=== PATIENT | female | born 1970 | race Caucasian/White ===

== ENCOUNTER 2017-05-24 14:33 | Emergency (ER) | payer SELFPAY ==
[~2017-05-24] VITALS: Ht 157.5 cm; Wt 60.0 kg
[~2017-05-24 14:33] MED LIST: AUGM875T PO; PERC5TAB12 PO
[2017-05-24 14:36] VITALS: BP 129/85; PULSE 100; RESP 17; TEMP 98.8; O2SAT 96
[2017-05-24] MEDS ORDERED: SODIUM CHLOR 0.9% 1000 ML INJ 1,000 ML IV SCH (14:41)
[2017-05-24] MEDS ORDERED: TETANUS/DIPHTHERIA TOXOID ADULT 0.5 ML VIAL IM ONE (14:45)
[2017-05-24] MEDS ORDERED: SODIUM CHLORIDE 0.9% FLUSH 5 ML FLUSH IV FLUSH PRN (14:45)
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
[2017-05-24 15:05] LABS: AUTOMATED NEUTROPHIL # 6.2 TH/MM3 (1.8-7.7); BASOPHIL % 0.5 % (0.0-2.0); EOSINOPHIL # 0.2 TH/MM3 (0-0.4); EOSINOPHIL % 2.1 % (0.0-4.0); HEMATOCRIT 43.5 % (35.0-46.0); HEMO FLAGS DIFF FINAL; LYMPH % 20.3 % (9.0-44.0); LYMPHOCYTE # 1.8 TH/MM3 (1.0-4.8); MEAN CELL VOLUME 96.8 FL (80.0-100.0); MEAN CORPUSCULAR HEMOGLOBIN 33.7 PG (27.0-34.0); MEAN CORPUSCULAR HGB CONC 34.8 % (32.0-36.0); MONO % 6.8 % (0.0-8.0); NEUT % 70.3 % (16.0-70.0); PLATELET COUNT 227 TH/MM3 (150-450); RED BLOOD COUNT 4.49 MIL/MM3 (4.00-5.30); RED CELL DISTRIBUTION WIDTH 14.8 % (11.6-17.2); WHITE BLOOD COUNT 8.9 TH/MM3 (4.0-11.0)
[2017-05-24 15:46] LABS: ALT (GPT) 21 U/L (10-53); ANION GAP 13 MEQ/L (5-15); AST (GOT) 23 U/L (15-37); BICARBONATE 23.2 MEQ/L (21.0-32.0); BLOOD UREA NITROGEN 3 MG/DL (7-18); CHLORIDE 108 MEQ/L (98-107); GLOMERULAR FILTRATION RATE 85 ML/MIN (>89); POTASSIUM 3.2 MEQ/L (3.5-5.1); SODIUM (NA) 144 MEQ/L (136-145)
[2017-05-24 15:53] LABS: ALKALINE PHOSPHATASE 57 U/L (45-117); TOTAL BILIRUBIN ADULT 0.5 MG/DL (0.2-1.0)
[2017-05-24 15:55] LABS: CREATINE KINASE 87 U/L (26-192)
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
[2017-05-24] MEDS ORDERED: POTASSIUM CHLORIDE 25 MEQ EFFERVESCENT TAB PO ONE (16:15)
[2017-05-24] MEDS ORDERED: MUPI2%T TOPICAL (16:33)
[2017-05-24] MEDS ORDERED: BACT800T5 PO (16:33)
[2017-05-24 16:45] LABS: AMPHETAMINE, URINE NEG (NEG); BARBITURATES, URINE NEG (NEG); COCAINE, URINE POS (NEG)
[2017-05-24 16:47] LABS: BLOOD, URINE NEG (NEG); GLUCOSE,URINE NEG (NEG); KETONE, URINE NEG (NEG); NITRITE,URINE NEG (NEG); SQUAMOUS EPITHELIAL CELL URINE <1 /hpf (0-5); URINE COLOR LIGHT-YELLOW (YELLW/STRAW)
[2017-05-24 16:50] LABS: COMMENT (UR) CATH-CULT NOT IND; CULTURE IF INDICATED CATH CULTURE NOT IND
[2017-05-24 17:03] VITALS: BP 143/76; PULSE 96; RESP 16; O2SAT 99
== END 2017-05-24 17:39 | disposition home or self-care (01) ==
LOC: NEPD 14:33
DX: F10.120 Alcohol abuse with intoxication, uncomplicated (principal); L01.00 Impetigo, unspecified; E87.6 Hypokalemia; Y90.6 Blood alcohol level of 120-199 mg/100 ml
CPT/HCPCS: 73120; 80053; 80307; 81001; 82550; 85025; 90471; 90714; 99284; J7030

== ENCOUNTER 2017-05-30 07:56 | Inpatient (IN) | payer OTHER ==
[~2017-05-30] VITALS: Ht 160 cm; Wt 59.4 kg
[~2017-05-30 07:56] MED LIST changes: +BACT800T5 PO; +MUPI2%T TOPICAL
[2017-05-30 08:07] VITALS: BP 114/70; PULSE 145; RESP 20; TEMP 99.5; O2SAT 99
[2017-05-30] MEDS ORDERED: PIPERACIL-TAZO 4.5 GM PREMIX 100 ML IV STA (08:17)
[2017-05-30] MEDS ORDERED: SODIUM CHLOR 0.9% 1000 ML INJ 100 ML IV ONE (08:17)
[2017-05-30] MEDS ORDERED: VANCOMYCIN INJ 1,250 MG in SODIUM CHLORID 0.9% 500 ML INJ 500 ML IV STA (08:17)
[2017-05-30] MEDS ORDERED: SODIUM CHLOR 0.9% 1000 ML INJ 1,000 ML IV ONE ×2 (08:17)
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
[2017-05-30 08:28] VITALS: O2SAT 100
[2017-05-30] MEDS ORDERED: LIDOCAINE 1%/EPINEPHrine 1:100,000 SOLN 20 ML VIAL INFIL ONE (08:30)
[2017-05-30] MEDS ORDERED: ACETAMINOPHEN 325 MG TAB PO ONE (08:30)
[2017-05-30 08:46] LABS: AUTOMATED NEUTROPHIL # 22.7 TH/MM3 (1.8-7.7); BASOPHIL % 0.1 % (0.0-2.0); EOSINOPHIL # 0.1 TH/MM3 (0-0.4); EOSINOPHIL % 0.3 % (0.0-4.0); HEMATOCRIT 43.4 % (35.0-46.0); LYMPH % 2.3 % (9.0-44.0); LYMPHOCYTE # 0.6 TH/MM3 (1.0-4.8); MEAN CELL VOLUME 97.4 FL (80.0-100.0); MEAN CORPUSCULAR HEMOGLOBIN 33.9 PG (27.0-34.0); MEAN CORPUSCULAR HGB CONC 34.8 % (32.0-36.0); MONO % 6.2 % (0.0-8.0); NEUT % 91.1 % (16.0-70.0); PLATELET COUNT 243 TH/MM3 (150-450); RED BLOOD COUNT 4.45 MIL/MM3 (4.00-5.30); RED CELL DISTRIBUTION WIDTH 15.2 % (11.6-17.2); WHITE BLOOD COUNT 24.9 TH/MM3 (4.0-11.0)
[2017-05-30 08:47] LABS: HEMO FLAGS AUTO DIFF
[2017-05-30 09:02] LABS: ANION GAP 10 MEQ/L (5-15); BICARBONATE 24.1 MEQ/L (21.0-32.0); BLOOD UREA NITROGEN 7 MG/DL (7-18); CHLORIDE 94 MEQ/L (98-107); GLOMERULAR FILTRATION RATE 90 ML/MIN (>89); POTASSIUM 3.7 MEQ/L (3.5-5.1); SODIUM (NA) 128 MEQ/L (136-145)
[2017-05-30 09:09] LABS: ALKALINE PHOSPHATASE 83 U/L (45-117); ALT (GPT) 688 U/L (10-53); AST (GOT) 1195 U/L (15-37)
[2017-05-30 09:22] LABS: BANDS 10 % (0-6); METAMYELOCYTES 1 % (0-1); NEUTROPHIL # MANUAL DIFF 24.4 TH/MM3 (1.8-7.7); POLYS (SEG NEUTROPHILS) 87 % (16-70); WBC DIFF SAMPLE 100
[2017-05-30 09:24] LABS: PLATELET ESTIMATE SMEAR NORMAL (NORMAL); PLATELET MORPHOLOGY NORMAL (NORMAL); SCAN/DIFF FINAL DIFF MANUAL
--- NOTE | 2017-05-30 09:26 | RADRPT ---
EXAM DATE/TIME: 05/30/2017 08:53 [facility] COMPARISON: No previous studies available for comparison. INDICATIONS : Left proximal femur pain and inflammation on anterior portion of proximal femur. MEDICAL HISTORY : None. SURGICAL HISTORY : None. ENCOUNTER: Initial ACUITY: 4 - 6 days PAIN SCORE: 8/10 LOCATION: Left femur FINDINGS: Two view examination of the left femur demonstrates no evidence of fracture or dislocation. Bony min eralization is normal. The soft tissue structures are intact. CONCLUSION: Unremarkable examination of the left femur. Anders Pena MD on May 30, 2017 at 9:24 Board Certified Radiologist. This report was verified electronically.
[2017-05-30 09:53] LABS: ACETAMINOPHEN LESS THAN 2.0 MCG/ML (10.0-30.0); ALCOHOL LESS THAN 3 MG/DL (0-5)
[2017-05-30] MEDS ORDERED: Vancomycin Consult Pharmacy 1 EA OTHER SCH (10:00)
[2017-05-30] MEDS ORDERED: ACETAMINOPHEN/HYDROcodone 325 MG/5 MG TAB PO PRN (10:00)
[2017-05-30] MEDS ORDERED: ACETAMINOPHEN 325 MG TAB PO PRN (10:00)
[2017-05-30 10:13] VITALS: BP 124/71; PULSE 112; RESP 28; TEMP 98.3; O2SAT 98
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
[2017-05-30 10:37] LABS: INTERNATIONAL NORMALIZED RATIO 1.1 RATIO; PROTHROMBIN TIME - PATIENT 12.7 SEC (9.8-11.6)
[2017-05-30 10:38] LABS: LACTIC ACID GHOST NOT REPORTABLE
[2017-05-30] MEDS: ACETAMINOPHEN/HYDROcodone 325 MG/5 MG TAB PO PRN ×3 (11:21→22:45)
--- NOTE | 2017-05-30 11:28 | RADRPT ---
EXAM DATE/TIME: 05/30/2017 10:43 [facility] COMPARISON: No previous studies available for comparison. INDICATIONS : Increased lab values. MEDICAL HISTORY : Increased lab values. SURGICAL HISTORY : Right and left arm surgery. ENCOUNTER: Initial ACUITY: 1 day PAIN SCORE: 0/10 LOCATION: Bilateral upper quadrant MEASUREMENTS: LIVER: 17.4 cm length COMMON DUCT: 4 mm RIGHT KIDNEY: 11.9 x 5.0 x 4.4 cm SPLEEN: 9.3 cm length FINDINGS: LIVER: Normal echotexture without focal lesion or ductal dilatation. The portal system is patent. COMMON DUCT: No intraluminal mass or stone visualized. GALLBLADDER: Multiple stones in the gallbladder. There is some thickening of the gallbladder wall. No fluid around the gallbladder. PANCREAS: The visualized portions are within normal limits. RIGHT KIDNEY: No hydronephrosis, stone or mass. SPLEEN: No focal lesion. CONCLUSION: 1. Multiple stones in the gallbladder. No definite biliary tract obstruction at this time. 2. The liver is mildly prominent in size. Tom Archer MD on May 30, 2017 at 11:25 Board Certified Radiologist. This report was verified electronically.
[2017-05-30] MEDS ORDERED: PROPOFOL 200 MG/20 ML AMP IV ONE (12:00)
[2017-05-30] MEDS ORDERED: ONDANSETRON HCL 4 MG/2 ML VIAL IV PUSH ONE (12:00)
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
[2017-05-30 12:37] VITALS: BP 100/68; PULSE 102; RESP 22; TEMP 98.1; O2SAT 100
[2017-05-30] MEDS: SODIUM CHLOR 0.9% 1000 ML INJ 1,000 ML IV SCH ×2 (12:59→21:33)
[2017-05-30] MEDS ORDERED: DIATRIZOATE MEGLUM/DIATRIZOATE SOD 9 ML CUP ONE (13:01)
[2017-05-30] MEDS ORDERED: DIATRIZOATE MEGLUM/DIATRIZOATE SOD 9 ML CUP PO ONE (14:15)
[2017-05-30] MEDS ORDERED: IOHEXOL 350 MG/ML 10 ML VIAL (for RAD DIAG) IV ONE (14:59)
--- NOTE | 2017-05-30 15:14 | RADRPT ---
EXAM DATE/TIME: 05/30/2017 14:49 [facility] COMPARISON: No previous studies available for comparison. INDICATIONS : Left, anterior thigh cellulitis, sepsis. IV CONTRAST: 80 cc Omnipaque 350 (iohexol) IV ORAL CONTRAST: Prescribed oral contrast ingested. RADIATION DOSE: 9.96 CTDIvol (mGy) MEDICAL HISTORY : None SURGICAL HISTORY : None. ENCOUNTER: Initial ACUITY: 1 day PAIN SCALE: 7/10 LOCATION: Left lower quadrant TECHNIQUE: Volumetric scanning of the abdomen and pelvis was performed. Using automated exposure control and ad justment of the mA and/or kV according to patient size, radiation dose was kept as low as reasonably achievable to obtain optimal diagnostic quality images. DICOM format image data is available electro nically for review and comparison. FINDINGS: LOWER LUNGS: Mild right lower lung atelectasis. Left lung base is clear. LIVER: There is some fatty infiltration throughout the liver. No dilated biliary ducts. There are gallstones in the gallbladder. No definite inflammatory changes. SPLEEN: Normal size without lesion. PANCREAS: Within normal limits. KIDNEYS: Normal in size and shape. There is no mass, stone or hydronephrosis. ADRENAL GLANDS: Within normal limits. VASCULAR: There is no aortic aneurysm. BOWEL/MESENTERY: The stomach, small bowel, and colon demonstrate no acute abnormality. There is no free intraperitone al air or fluid. The appendix is unremarkable. No inflammatory changes. ABDOMINAL WALL: Within normal limits. RETROPERITONEUM: There is no lymphadenopathy. BLADDER: No wall thickening or mass. REPRODUCTIVE: Within normal limits. INGUINAL: There is no lymphadenopathy or hernia. MUSCULOSKELETAL: Within normal limits for patient age. CONCLUSION: 1. There is scattered fatty infiltration throughout the liver. 2. Gallstones in the gallbladder. No biliary tract obstruction. 3. Otherwise, unremarkable examination. Tom Archer MD on May 30, 2017 at 15:10 Board Certified Radiologist. This report was verified electronically.
[2017-05-30] MEDS ORDERED: ceFAZolin INJ 1,000 MG VIAL ONE (15:50)
[2017-05-30] MEDS: PIPERACIL-TAZO 3.375 GM PREMIX 50 ML IV SCH ×2 (15:51→22:19)
[2017-05-30] MEDS ORDERED: SODIUM CHLORIDE 0.9% INJ 10 ML ONE (15:52)
[2017-05-30] MEDS ORDERED: BACITRACIN TOP OINT 15 GM TUBE ONE (16:51)
--- NOTE | 2017-05-30 17:06 | HHI.PR ---
cc: Tato Olivo MD Immediate Post Op Note Procedure Date: May 30, 2017 Pre Op Diagnosis: Left groin/thigh abscess with tissue necrosis Post Op Diagnosis: Same Surgeon: Tato Olivo Weeder Thinner(s): Harris Hilton CFA Procedure: Incision and Drainage with irrigation and debridement Left thigh wound with excision 25 cm2 subcutaneous tissue Complications: None Estimated blood loss: 50 ml Anesthesia: LMA Drains: None IVF (600 ) Patient to: PACU Patient Condition: Good Date/Time of Procedure: SEE SURGICAL CARE RECORD Tato Olivo MD May 30, 2017 17:06
[2017-05-30] MEDS ORDERED: fentaNYL CITRATE 250 MCG/5 ML AMP ONE (17:10)
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
[2017-05-30] MEDS ORDERED: METOPROLOL TARTRATE 25 MG TAB PO PRN (18:45)
[2017-05-30] MEDS ORDERED: INSULIN HUMAN REGULAR 1,000 UNITS/10 ML VIAL SQ PRN (18:45)
[2017-05-30] MEDS ORDERED: SODIUM CHLORID 0.9% 500 ML IV PRN (18:45)
[2017-05-30] MEDS ORDERED: LACTATED RINGER'S 1000 ML IV PRN (18:45)
[2017-05-30] MEDS ORDERED: POVIDONE IODINE 5% (ANTISEPSIS KIT) 4 APPLICATIONS EACH NARE PRN (18:45)
[2017-05-30] MEDS ORDERED: CHLORHEXIDINE GLUCONATE 2 % 1 PACK (2 CLOTHS) TOPICAL PRN (18:45)
[2017-05-30 19:44] VITALS: PULSE 107
[2017-05-30 20:00] VITALS: BP 124/72; PULSE 105; RESP 20; TEMP 97.3; O2SAT 99
[2017-05-30] MEDS: CLINDAMYCIN INJ 900 MG in SODIUM CHLORIDE 0.9% INJ 100 ML IV SCH (21:33)
[2017-05-30] MEDS: VANCOMYCIN INJ 1,250 MG in SODIUM CHLOR 0.9% 250 ML INJ 250 ML IV SCH (22:45)
[2017-05-31] VITALS: BP 96/58; PULSE 92; RESP 20; TEMP 97.8; O2SAT 97
[2017-05-31] MEDS: PIPERACIL-TAZO 3.375 GM PREMIX 50 ML IV SCH ×4 (02:26→22:42)
[2017-05-31] MEDS: ACETAMINOPHEN/HYDROcodone 325 MG/5 MG TAB PO PRN ×6 (02:27→23:20)
[2017-05-31] MEDS: CLINDAMYCIN INJ 900 MG in SODIUM CHLORIDE 0.9% INJ 100 ML IV SCH ×3 (03:24→21:04)
[2017-05-31 04:00] VITALS: BP 100/60; PULSE 76; RESP 20; TEMP 97.5; O2SAT 96
[2017-05-31] MEDS: SODIUM CHLOR 0.9% 1000 ML INJ 1,000 ML IV SCH ×2 (05:10→17:37)
[2017-05-31 08:00] VITALS: BP 116/68; PULSE 90; RESP 20; TEMP 97.1; O2SAT 97
[2017-05-31] MEDS: VANCOMYCIN INJ 1,250 MG in SODIUM CHLOR 0.9% 250 ML INJ 250 ML IV SCH ×2 (09:45→23:11)
[2017-05-31 10:29] LABS: BICARBONATE 21.9 MEQ/L (21.0-32.0); CALCIUM-PROTEIN CORRECTED 8.4 MG/DL (8.5-10.1); TOTAL BILIRUBIN ADULT 1.8 MG/DL (0.2-1.0)
[2017-05-31 10:32] LABS: POTASSIUM 3.3 MEQ/L (3.5-5.1)
--- NOTE | 2017-05-31 11:54 | HHI.PR ---
Subjective Remarks f/u; abscess left thigh in no acute disress. afebrile. pain is fairly controlled. no new complaints. Objective Vitals Vital Signs Date Time Temp Pulse Resp B/P Pulse Ox O2 Delivery O2 Flow Rate FiO2 05/31/17 08:29 99 Room Air 05/31/17 08:07 18 05/31/17 08:00 97.1 90 20 116/68 97 05/31/17 04:00 97.5 76 20 100/60 96 05/31/17 00:00 97.8 92 20 96/58 97 05/31/17 00:00 Room Air 05/30/17 20:00 Room Air 05/30/17 20:00 97.3 105 20 124/72 99 05/30/17 19:44 107 05/30/17 18:15 101 16 132/71 99 Room Air 05/30/17 18:00 102 16 128/65 98 Room Air 05/30/17 17:45 98 16 113/71 99 Room Air 05/30/17 17:30 100 16 118/69 98 Room Air 05/30/17 17:15 91 16 131/78 98 Room Air 05/30/17 17:06 99.0 86 16 136/80 99 Room Air 05/30/17 12:37 98.1 102 22 100/68 100 Room Air I/O 05/30/17 05/30/17 05/30/17 05/31/17 05/31/17 05/31/17 07:00 15:00 23:00 07:00 15:00 23:00 Intake Total 1118 ml 1104 ml Output Total 325 ml Balance 1118 ml 779 ml Intake Oral 600 ml 240 ml IV Total 518 ml 864 ml Output Urine Total 325 ml # Voids 2 # Bowel Movements 1 Result Diagram: 05/30/17 0830 05/31/17 0812 Imaging Last Impressions Liver Ultrasound 05/30/17 0000 Signed Impressions: Service Date/Time: May 10:43 - CONCLUSION: 1. Multiple stones in the gallbladder. No definite biliary tract obstruction at this time. 2. The liver is mildly prominent in size. Tom Archer MD Femur X-Ray 05/30/17 0000 Signed Impressions: Service Date/Time: May 08:53 - CONCLUSION: Unremarkable examination of the left femur. Anders Pena MD Abdomen/Pelvis CT 05/30/17 0000 Signed Impressions: Service Date/Time: May 14:49 - CONCLUSION: 1. There is scattered fatty infiltration throughout the liver. 2. Gallstones in the gallbladder. No biliary tract obstruction. 3. Otherwise, unremarkable examination. Tom Archer MD Objective Remarks GENERAL: This is a well-nourished, well-developed patient, in no apparent distress. CARDIOVASCULAR: Regular rate and regular rhythm without murmurs, gallops, or rubs. RESPIRATORY: Clear to auscultation. Breath sounds equal bilaterally. No wheezes , rales, or rhonchi. GASTROINTESTINAL: Abdomen soft, non-tender, nondistended. Normal, active bowel sounds MUSCULOSKELETAL: left thigh covered with clean dressing with wound vac in place. NEURO: Alert & Oriented x4 to person, place, time, situation. Moves all ext x4 Procedures I/D of the left thigh abscess with wound vac placement. Medications and IVs Current Medications Acetaminophen 650 mg 650 mg ONCE ONCE PO Last administered on 05/30/17 09:14 ; Start 05/30/17 at 08:30; Stop 05/30/17 at 08:31; Status DC Piperacillin Sod/ Tazobactam Sod 100 ml @ 200 mls/hr ONCE STAT IV Last administered on 05/30/17 09:14; Start 05/30/17 at 08:17; Stop 05/30/17 at 08:46 ; Status DC Vancomycin HCl 1250 mg/Sodium Chloride 512.5 ml @ 257.5 mls/ hr ONCE STAT IV Last administered on 05/30/17 09:52; Start 05/30/17 at 08:17; Stop 05/30/17 at 10:19; Status DC Sodium Chloride 1,000 ml @ 1,000 mls/hr Q1H ONCE IV Last administered on 09:13; Start 05/30/17 at 08:17; Stop 05/30/17 at 09:16; Status DC Sodium Chloride 1,000 ml @ 1,000 mls/hr Q1H ONCE IV Last administered on 09:13; Start 05/30/17 at 08:17; Stop 05/30/17 at 09:16; Status DC Sodium Chloride (NS 1000 ml Inj) 100 ml @ 1,000 mls/hr Q6M ONCE IV Last administered on 05/30/17 09:53; Start 05/30/17 at 08:17; Stop 05/30/17 at 08:22 ; Status DC Lidocaine/ Epinephrine 10 ml 10 ml ONCE ONCE INFIL Last administered on 10:01; Start 05/30/17 at 08:30; Stop 05/30/17 at 08:31; Status DC Pharmacy Profile Note 0 ml @ 0 mls/hr UNSCH OTHER ; Start 05/30/17 at 10:00 Piperacillin Sod/ Tazobactam Sod (Zosyn 3.375 Gm Premix) 50 ml @ 100 mls/hr Q6H IV Last administered on 05/31/17 08:09; Start 05/30/17 at 15:00 Acetaminophen (Tylenol) 650 mg Q4H PRN PO FEVER; Start 05/30/17 at 10:00 Acetaminophen/ Hydrocodone Bitart ([place] 5-325 Mg) 1 tab Q4H PRN PO PAIN 1-5; Start 05/30/17 at 10:00 Acetaminophen/ Hydrocodone Bitart ([place] 5-325 Mg) 2 tab Q4H PRN PO PAIN 6-10 Last administered on 05/31/17 10:40; Start 05/30/17 at 10:00 Hydromorphone HCl 0.5 mg 0.5 mg Q4H PRN IV PUSH BREAKTHROUGH PAIN; Start at 10:00 Sodium Chloride 1,000 ml @ 100 mls/hr Q10H IV Last administered on 05/31/17 05:10; Start 05/30/17 at 10:00 Vancomycin HCl/ Sodium Chloride (Vancomycin Inj/ NS 250 ml Inj) 262.5 ml @ 250 mls/hr Q12H IV Last administered on 05/31/17 09:45; Start 05/30/17 at 22:00 Miscellaneous Information SPECIFIC LAB TO BE DRAWN:VANCOMYCIN TROUGH DATE TO... ONCE ONCE .XX ; Start 06/01/17 at 09:45; Stop 06/01/17 at 09:46 Diatrizoate Meglum/ Diatrizoate Sod ( Gastromaxime Liq) 18 ml STK-MED ONCE .ROUTE Last administered on 05/30/17 13:04; Start 05/30/17 at 13:01; Stop 08/06 at 13:02; Status DC Diatrizoate Meglum/ Diatrizoate Sod ( Gastromaxime Stevens) 18 ml ONCE ONCE PO ; Start 05/30/17 at 14:15; Stop 05/30/17 at 14:16; Status DC Iohexol (Omnipaque 350 Inj) 80 ml STK-MED ONCE IV Last administered on 14:59; Start 05/30/17 at 14:59; Stop 05/30/17 at 15:00; Status DC Cefazolin Sodium 3000 mg 3,000 mg STK-MED ONCE .ROUTE Last administered on 05/30 16:41; Start 05/30/17 at 15:50; Stop 05/30/17 at 15:51; Status DC Sodium Chloride (NS Inj) 10 ml @ As Directed STK-MED ONCE .ROUTE ; Start at 15:52; Stop 05/30/17 at 15:53; Status DC Bacitracin (Baciguent Oint) 15 applic STK-MED ONCE .ROUTE Last administered on 05/30/17 16:53; Start 05/30/17 at 16:51; Stop 05/30/17 at 16:52; Status DC Fentanyl Citrate 250 mcg 250 mcg STK-MED ONCE .ROUTE ; Start 05/30/17 at 17:10; Stop 05/30/17 at 17:11; Status DC Lactated Ringer's 1,000 ml @ 30 mls/hr Q24H PRN IV SEE LABEL COMMENTS; Start at 18:45; Stop 06/02/17 at 18:44 Sodium Chloride (NS 500 ml Inj) 500 ml @ 30 mls/hr [id number] PRN IV SEE LABEL COMMENTS; Start 05/30/17 at 18:45; Stop 06/02/17 at 18:44 Metoprolol Tartrate (Lopressor) 25 mg CHEMICAL ENGINEERING INTERN PRN PO SEE LABEL COMMENTS; Start 05/30/17 at 18:45; Stop 06/02/17 at 18:44 Povidone Iodine (Betadine 5% Antisepsis Kit) 1 applic CHEMICAL ENGINEERING INTERN PRN EACH NARE SEE LABEL COMMENTS; Start 05/30/17 at 18:45; Stop 06/02/17 at 18:44 Chlorhexidine Gluconate (Chlorhexidine 2% Cloth) 3 pack CHEMICAL ENGINEERING INTERN PRN TOPICAL SEE LABEL COMMENTS; Start 05/30/17 at 18:45; Stop 06/02/17 at 18:44 Insulin Human Regular See Protocol Table ... CHEMICAL ENGINEERING INTERN PRN SQ SEE PROTOCOL TABLE ; Start 05/30/17 at 18:45; Stop 06/02/17 at 18:44 Clindamycin Phosphate/Sodium Chloride (Cleocin Inj/NS Inj) 106 ml @ 212 mls/hr Q8H IV Last administered on 05/31/17t 03:24; Start 05/30/17 at 20:00 A/P Assessment and Plan A/P - severe sepsis due to cellulitis/abscess of the left thigh- s/p I/D and wound vac placement continue with IV antibiotics and pain control- follow the cultures- ID and general surgery following. -elevated LFT's- improving- abdominal sonogram with cholelithiasis with no biliary obstruction-hepatitis panel pending- GI consult appreciated. -hyponatremia; improved- will monitor -hypokalemia; will replace. -DVT prophylaxis with Lovenox when ok with surgery. Luna Goss MD May 31, 2017 11:53
[2017-05-31 12:00] VITALS: BP 134/79; PULSE 91; RESP 20; TEMP 97.2; O2SAT 97
[2017-05-31] MEDS ORDERED: POTASSIUM CHLORIDE 20 MEQ CONTROLLED RELEASE TAB PO ONE (12:00)
[2017-05-31 12:44] LABS: AUTOMATED NEUTROPHIL # 9.3 TH/MM3 (1.8-7.7); BASOPHIL % 0.2 % (0.0-2.0); EOSINOPHIL # 0.3 TH/MM3 (0-0.4); EOSINOPHIL % 2.5 % (0.0-4.0); HEMATOCRIT 35.6 % (35.0-46.0); HEMO FLAGS DIFF FINAL; LYMPH % 9.8 % (9.0-44.0); LYMPHOCYTE # 1.1 TH/MM3 (1.0-4.8); MEAN CELL VOLUME 99.3 FL (80.0-100.0); MEAN CORPUSCULAR HEMOGLOBIN 32.7 PG (27.0-34.0); MEAN CORPUSCULAR HGB CONC 32.9 % (32.0-36.0); MONO % 6.9 % (0.0-8.0); NEUT % 80.6 % (16.0-70.0); PLATELET COUNT 204 TH/MM3 (150-450); RED BLOOD COUNT 3.59 MIL/MM3 (4.00-5.30); RED CELL DISTRIBUTION WIDTH 15.3 % (11.6-17.2); WHITE BLOOD COUNT 11.5 TH/MM3 (4.0-11.0)
--- NOTE | 2017-05-31 15:15 | HHI.PR ---
Subjective Subjective Notes Resting in bed No issues Pain better today Objective Vitals/I&O Vital Signs Date Time Temp Pulse Resp B/P Pulse Ox O2 Delivery O2 Flow Rate FiO2 05/31/17 12:50 18 05/31/17 12:00 97.2 91 134/79 97 05/31/17 08:29 Room Air Labs Laboratory Tests Test 05/31/17 05/31/17 05/31/17 08:12 09:13 11:58 Sodium Level 134 Potassium Level 3.3 Chloride Level 103 Carbon Dioxide Level 21.9 Anion Gap 9 Blood Urea Nitrogen 6 Creatinine 0.60 Estimat Glomerular Filtration 107 Rate Random Glucose 84 Calcium Level 7.4 Protein Corrected Calcium 8.4 Total Bilirubin 1.8 Aspartate Amino Transf 354 (AST/SGOT) Alanine Aminotransferase 475 (ALT/SGPT) Alkaline Phosphatase 79 Total Protein 5.3 Albumin 2.0 Lactic Acid Level 1.7 Hepatitis A IgM Antibody NEGATIVE Hepatitis B Surface Antigen NEGATIVE Hepatitis B Core IgM Antibody NEGATIVE Hepatitis C Antibody NEGATIVE White Blood Count 11.5 Red Blood Count 3.59 Hemoglobin 11.7 Hematocrit 35.6 Mean Corpuscular Volume 99.3 Mean Corpuscular Hemoglobin 32.7 Mean Corpuscular Hemoglobin 32.9 Concent Red Cell Distribution Width 15.3 Platelet Count 204 Mean Platelet Volume 7.6 Neutrophils (%) (Auto) 80.6 Lymphocytes (%) (Auto) 9.8 Monocytes (%) (Auto) 6.9 Eosinophils (%) (Auto) 2.5 Basophils (%) (Auto) 0.2 Neutrophils # (Auto) 9.3 Lymphocytes # (Auto) 1.1 Monocytes # (Auto) 0.8 Eosinophils # (Auto) 0.3 Basophils # (Auto) 0.0 CBC Comment DIFF FINAL Differential Comment Date/Time Procedure Status Source Growth 05/30/17 10:06 Gram Stain - Final Resulted Wound Drainage 05/30/17 10:06 Wound Culture - Preliminary Resulted Group A Beta Strep 05/30/17 08:30 Aerobic Blood Culture - Preliminary Resulted Blood Peripheral NO GROWTH IN 1 DAY 05/30/17 08:30 Anaerobic Blood Culture - Preliminary Resulted Blood Peripheral NO GROWTH IN 1 DAY Radiology Last 48 hours Impressions Liver Ultrasound 05/30/17 0000 Signed Impressions: Service Date/Time: May 10:43 - CONCLUSION: 1. Multiple stones in the gallbladder. No definite biliary tract obstruction at this time. 2. The liver is mildly prominent in size. Tom Archer MD Femur X-Ray 05/30/17 0000 Signed Impressions: Service Date/Time: May 08:53 - CONCLUSION: Unremarkable examination of the left femur. Anders Pena MD Abdomen/Pelvis CT 05/30/17 0000 Signed Impressions: Service Date/Time: May 14:49 - CONCLUSION: 1. There is scattered fatty infiltration throughout the liver. 2. Gallstones in the gallbladder. No biliary tract obstruction. 3. Otherwise, unremarkable examination. Tom Archer MD Cardiovascular: Regular Lungs: Clear Abdomen: Non-distended, Non-tender Extremities: Other (LEFT thigh Wound Vac in place with good seal ) A/P Assessment and Plan 46 year old female POD1 I&D LEFT thigh wound -Regular diet -Pain control -Plan for Wound Vac change on Saturday -Obtain consents -NPO after MN Saturday -GS will follow peripherally over the weekend; please call with questions Attending Note - Dr. Olivo Less pain today VAC intact; will change on Saturday The exam, history, and the medical decision-making described in the above note were completed with the assistance of the mid-level provider. I reviewed and agree with the findings presented. I attest that I had a [id number] encounter with the patient on the same day, and personally performed and documented my assessment and findings in the medical record. Radha Pena May 31, 2017 15:15 Tato Olivo MD Jun 03, 2017 18:00
--- NOTE | 2017-05-31 15:58 | MP ---
cc: REVA OLIVO M.D. DATE OF SURGERY: 05/30/2017 PROCEDURE Incision and drainage left thigh abscess with irrigation and debridement 25 cm2 subcutaneous tissue. PREOPERATIVE DIAGNOSIS Left thigh abscess with necrotic tissue. POSTOPERATIVE DIAGNOSIS Left thigh abscess with necrotic tissue. ANESTHESIA LMA. SURGEON Dr. Olivo. CAFETERIA COUNTER ATTENDANT Anuja Gonzalez CFA ESTIMATED BLOOD LOSS 50 mL. FLUIDS 600 mL crystalloid. COMPLICATIONS None. DRAINS None. SPECIMEN None. PROCEDURE IN DETAIL The patient was taken to the operating room after marking the site and placed on the operating table in the supine position. After an adequate level of laryngeal mask anesthesia was instituted the left thigh was prepped and draped in the field. Time-out was taken confirming the correct patient, site and procedure to be performed. The necrotic tissue in the skin and subcutaneous tissue was sharply debrided away. A total of 25 cm2 of tissue was removed. At this point debridement was carried back to bleeding tissue. There was undermining in the thigh progressing medially and this was opened directly over knife. The wound was made hemostatic with electrocautery. Following this, 1 liter of antibiotic irrigation was utilized to irrigate all of the tissues. Further exploration revealed no further necrotic tissue. With all viable tissue now exposed, the wound was dressed with vac dressing. Sponge was cut to fit the wound. The vac dressing was applied and continuous suction was applied. The patient was extubated and taken back to the recovery room in stable condition. Sponge, needle and instrument counts were reported to be correct. The patient tolerated the procedure well. MD NILSON Reyes/KUN /5:08 PM /3:50 PM
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
--- NOTE | 2017-05-31 19:26 | HHI.IDPN ---
Subjective Subjective Remarks pain improved doing OK tolerating abx no fever Antibiotics vanco clinda zosyn Allergies: Coded Allergies: No Known Allergies (Verified , 05/30/17) Objective . Vital Signs Date Time Temp Pulse Resp B/P Pulse Ox O2 Delivery O2 Flow Rate FiO2 05/31/17 17:35 20 05/31/17 12:00 97.2 91 20 134/79 97 05/31/17 08:29 99 Room Air 05/31/17 08:00 97.1 90 20 116/68 97 05/31/17 04:00 97.5 76 20 100/60 96 05/31/17 00:00 97.8 92 20 96/58 97 05/31/17 00:00 Room Air 05/30/17 20:00 Room Air 05/30/17 20:00 97.3 105 20 124/72 99 05/30/17 19:44 107 05/30/17 05/30/17 05/31/17 15:00 23:00 07:00 Intake Total 1118 ml 1104 ml Output Total 325 ml Balance 1118 ml 779 ml Intake Oral 600 ml 240 ml IV Total 518 ml 864 ml Output Urine Total 325 ml # Voids 2 # Bowel Movements 1 . Laboratory Tests Test 05/30/17 05/31/17 08:30 11:58 White Blood Count 24.9 TH/MM3 11.5 TH/MM3 Red Blood Count 4.45 MIL/MM3 3.59 MIL/MM3 Hemoglobin 15.1 GM/DL 11.7 GM/DL Hematocrit 43.4 % 35.6 % Mean Corpuscular Volume 97.4 FL 99.3 FL Mean Corpuscular Hemoglobin 33.9 PG 32.7 PG Mean Corpuscular Hemoglobin 34.8 % 32.9 % Concent Red Cell Distribution Width 15.2 % 15.3 % Platelet Count 243 TH/MM3 204 TH/MM3 Mean Platelet Volume 7.4 FL 7.6 FL Neutrophils (%) (Auto) 91.1 % 80.6 % Lymphocytes (%) (Auto) 2.3 % 9.8 % Monocytes (%) (Auto) 6.2 % 6.9 % Eosinophils (%) (Auto) 0.3 % 2.5 % Basophils (%) (Auto) 0.1 % 0.2 % Neutrophils # (Auto) 22.7 TH/MM3 9.3 TH/MM3 Lymphocytes # (Auto) 0.6 TH/MM3 1.1 TH/MM3 Monocytes # (Auto) 1.5 TH/MM3 0.8 TH/MM3 Eosinophils # (Auto) 0.1 TH/MM3 0.3 TH/MM3 Basophils # (Auto) 0.0 TH/MM3 0.0 TH/MM3 CBC Comment AUTO DIFF DIFF FINAL Differential Total Cells 100 Counted Neutrophils % (Manual) 87 % Band Neutrophils % 10 % Monocytes % 2 % Neutrophils # (Manual) 24.4 TH/MM3 Metamyelocytes 1 % Differential Comment FINAL DIFF MANUAL Platelet Estimate NORMAL Platelet Morphology Comment NORMAL Laboratory Tests Test 05/30/17 05/31/17 05/31/17 08:30 08:12 09:13 Sodium Level 128 MEQ/L 134 MEQ/L Potassium Level 3.7 MEQ/L 3.3 MEQ/L Chloride Level 94 MEQ/L 103 MEQ/L Carbon Dioxide Level 24.1 MEQ/L 21.9 MEQ/L Anion Gap 10 MEQ/L 9 MEQ/L Blood Urea Nitrogen 7 MG/DL 6 MG/DL Creatinine 0.70 MG/DL 0.60 MG/DL Estimat Glomerular Filtration 90 ML/MIN 107 ML/MIN Rate Random Glucose 86 MG/DL 84 MG/DL Lactic Acid Level 2.4 mmol/L 1.7 mmol/L Calcium Level 8.2 MG/DL 7.4 MG/DL Total Bilirubin 2.0 MG/DL 1.8 MG/DL Aspartate Amino Transf 1195 U/L 354 U/L (AST/SGOT) Alanine Aminotransferase 688 U/L 475 U/L (ALT/SGPT) Alkaline Phosphatase 83 U/L 79 U/L Total Protein 6.6 GM/DL 5.3 GM/DL Albumin 2.6 GM/DL 2.0 GM/DL Lipase 142 U/L Beta HCG, Qualitative LESS THAN 1 MIU/ML Protein Corrected Calcium 8.4 MG/DL Microbiology Date/Time Procedure Status Source Growth 05/30/17 08:15 Aerobic Blood Culture - Preliminary Resulted Blood Peripheral NO GROWTH IN 1 DAY 05/30/17 08:15 Anaerobic Blood Culture - Preliminary Resulted Blood Peripheral NO GROWTH IN 1 DAY 05/30/17 08:30 Aerobic Blood Culture - Preliminary Resulted Blood Peripheral NO GROWTH IN 1 DAY 05/30/17 08:30 Anaerobic Blood Culture - Preliminary Resulted Blood Peripheral NO GROWTH IN 1 DAY 05/30/17 08:30 Gram Stain - Final Resulted Wound Leg 05/30/17 08:30 Wound Culture - Preliminary Resulted Group A Beta Strep 05/30/17 10:06 Gram Stain - Final Resulted Wound Drainage 05/30/17 10:06 Wound Culture - Preliminary Resulted Group A Beta Strep Imaging Last Impressions Liver Ultrasound 05/30/17 0000 Signed Impressions: Service Date/Time: May 10:43 - CONCLUSION: 1. Multiple stones in the gallbladder. No definite biliary tract obstruction at this time. 2. The liver is mildly prominent in size. Tom Archer MD Femur X-Ray 05/30/17 0000 Signed Impressions: Service Date/Time: May 08:53 - CONCLUSION: Unremarkable examination of the left femur. Anders Pena MD Abdomen/Pelvis CT 05/30/17 0000 Signed Impressions: Service Date/Time: , May 30, 2017 14:49 - CONCLUSION: 1. There is scattered fatty infiltration throughout the liver. 2. Gallstones in the gallbladder. No biliary tract obstruction. 3. Otherwise, unremarkable examination. Tom Archer MD Physical Exam CONSTITUTIONAL/GENERAL: This is an adequately nourished patient, in no apparent distress. TUBES/LINES/DRAINS: SKIN: No jaundice, no generalysed rashes. Skin temperature appropriate. Not diaphoretic. STATUS LOCALIS: L groin/ upper thigh area with marked erythema, edema VAC in place over groin incision with serosang d/c No Odor Lateral area to VAC is markedly indurated, very tende with small area of white/ kc central discoloration - remains stable or slightly improved since yday the indurated area is about 5-6 c, medial aspect of the incision is soft CARDIOVASCULAR: Regular rate and rhythm without murmurs, gallops, or rubs. No JVD. Peripheral pulses symmetric. RESPIRATORY/CHEST: Symmetric, unlabored respirations. Clear to auscultation. Breath sounds equal bilaterally. No wheezes, rales, or rhonchi. GASTROINTESTINAL: Abdomen soft, non-tender, nondistended. No hepato-splenomegaly , or palpable masses. No guarding. Bowel sounds present. MUSCULOSKELETAL: Extremities without clubbing, cyanosis, or edema. NEUROLOGICAL: Awake and alert. Motor and sensory grossly within normal limits. Follows commands. Clear speech Moves all extremities. PSYCHIATRIC: No obvious anxiety/depression. no apparent hallucinations or other psychotic thought process. Assessment & Plan Remarks L groin necrotizing infection following blunt trauma s/p ncision and Drainage with irrigation and debridement Left thigh wound with excision 25 cm2 subcutaneous tissue and VAC placement 05/30 - confirmed group A strep ETOH abuse REc's: cont zosyn, vancomycin for now untill coinfection is r/o, then will switch to ampicillin cont clindamycin fu clx untill final monitor area of concer (the indurationof lateral part of the incuision) Monica Mcbride MD May 31, 2017 19:26
[2017-05-31 20:00] VITALS: BP 109/58; PULSE 86; PULSE 88; RESP 16; TEMP 98.1; O2SAT 95
[2017-05-31 20:58] LABS: FERRITIN 347 NG/ML (8-252)
[2017-05-31 21:07] LABS: TRANSFERRIN IRON PROFILE 119 MG/DL (200-360)
[2017-06-01] VITALS (7 sets, daily range): BP systolic 103–156; BP diastolic 57–86; PULSE 18–100; RESP 18–20; TEMP 97.7–98.4; O2SAT 94–98
[2017-06-01] MEDS: PIPERACIL-TAZO 3.375 GM PREMIX 50 ML IV SCH ×3 (03:34→14:44)
[2017-06-01] MEDS: ACETAMINOPHEN/HYDROcodone 325 MG/5 MG TAB PO PRN ×4 (03:35→20:19)
[2017-06-01] MEDS: SODIUM CHLOR 0.9% 1000 ML INJ 1,000 ML IV SCH ×3 (03:36→22:09)
[2017-06-01] MEDS: CLINDAMYCIN INJ 900 MG in SODIUM CHLORIDE 0.9% INJ 100 ML IV SCH ×3 (04:04→20:20)
[2017-06-01 07:54] LABS: BICARBONATE 26.7 MEQ/L (21.0-32.0); CALCIUM-PROTEIN CORRECTED 8.3 MG/DL (8.5-10.1); TOTAL BILIRUBIN ADULT 1.3 MG/DL (0.2-1.0)
--- NOTE | 2017-06-01 09:39 | HHI.PR ---
Subjective Remarks in no acute distress. has some pain to the left thigh. no fever. no other complaints. Objective Vitals Vital Signs Date Time Temp Pulse Resp B/P Pulse Ox O2 Delivery O2 Flow Rate FiO2 06/01/17 04:00 98.2 18 18 103/57 95 06/01/17 03:53 Room Air 06/01/17 00:00 98.3 82 18 113/65 94 05/31/17 20:00 86 05/31/17 20:00 98.1 88 16 109/58 95 05/31/17 20:00 Room Air 05/31/17 17:35 20 05/31/17 12:00 97.2 91 20 134/79 97 I/O 05/31/17 05/31/17 05/31/17 06/01/17 06/01/17 06/01/17 06:59 14:59 22:59 06:59 14:59 22:59 Intake Total 1104 ml 480 ml 324 ml 885 ml Output Total 325 ml 1200 ml 150 ml 400 ml Balance 779 ml -720 ml 174 ml 485 ml Intake Oral 240 ml 480 ml IV Total 864 ml 324 ml 885 ml Output Urine Total 325 ml 1200 ml 150 ml 400 ml # Bowel Movements 1 1 1 Result Diagram: 05/31/17 1158 06/01/17 0633 Imaging Last Impressions Liver Ultrasound 05/30/17 0000 Signed Impressions: Service Date/Time: May 10:43 - CONCLUSION: 1. Multiple stones in the gallbladder. No definite biliary tract obstruction at this time. 2. The liver is mildly prominent in size. Tom Archer MD Femur X-Ray 05/30/17 0000 Signed Impressions: Service Date/Time: May 08:53 - CONCLUSION: Unremarkable examination of the left femur. Anders Pena MD Abdomen/Pelvis CT 05/30/17 0000 Signed Impressions: Service Date/Time: May 14:49 - CONCLUSION: 1. There is scattered fatty infiltration throughout the liver. 2. Gallstones in the gallbladder. No biliary tract obstruction. 3. Otherwise, unremarkable examination. Tom Archer MD Objective Remarks GENERAL: This is a well-nourished, well-developed patient, in no apparent distress. CARDIOVASCULAR: Regular rate and regular rhythm without murmurs, gallops, or rubs. RESPIRATORY: Clear to auscultation. Breath sounds equal bilaterally. No wheezes , rales, or rhonchi. GASTROINTESTINAL: Abdomen soft, non-tender, nondistended. Normal, active bowel sounds MUSCULOSKELETAL: left thigh covered with clean dressing with wound vac in place. NEURO: Alert & Oriented x4 to person, place, time, situation. Moves all ext x4 Procedures I/D of the left thigh abscess with wound vac placement. Medications and IVs Current Medications Acetaminophen 650 mg 650 mg ONCE ONCE PO Last administered on 05/30/17 09:14 ; Start 05/30/17 at 08:30; Stop 05/30/17 at 08:31; Status DC Piperacillin Sod/ Tazobactam Sod 100 ml @ 200 mls/hr ONCE STAT IV Last administered on 05/30/17 09:14; Start 05/30/17 at 08:17; Stop 05/30/17 at 08:46 ; Status DC Vancomycin HCl 1250 mg/Sodium Chloride 512.5 ml @ 257.5 mls/ hr ONCE STAT IV Last administered on 05/30/17 09:52; Start 05/30/17 at 08:17; Stop 05/30/17 at 10:19; Status DC Sodium Chloride 1,000 ml @ 1,000 mls/hr Q1H ONCE IV Last administered on 09:13; Start 05/30/17 at 08:17; Stop 05/30/17 at 09:16; Status DC Sodium Chloride 1,000 ml @ 1,000 mls/hr Q1H ONCE IV Last administered on 09:13; Start 05/30/17 at 08:17; Stop 05/30/17 at 09:16; Status DC Sodium Chloride (NS 1000 ml Inj) 100 ml @ 1,000 mls/hr Q6M ONCE IV Last administered on 05/30/17 09:53; Start 05/30/17 at 08:17; Stop 05/30/17 at 08:22 ; Status DC Lidocaine/ Epinephrine 10 ml 10 ml ONCE ONCE INFIL Last administered on 10:01; Start 05/30/17 at 08:30; Stop 05/30/17 at 08:31; Status DC Pharmacy Profile Note 0 ml @ 0 mls/hr UNSCH OTHER ; Start 05/30/17 at 10:00 Piperacillin Sod/ Tazobactam Sod (Zosyn 3.375 Gm Premix) 50 ml @ 100 mls/hr Q6H IV Last administered on 06/01/17 03:34; Start 05/30/17 at 15:00 Acetaminophen (Tylenol) 650 mg Q4H PRN PO FEVER; Start 05/30/17 at 10:00 Acetaminophen/ Hydrocodone Bitart ([place] 5-325 Mg) 1 tab Q4H PRN PO PAIN 1-5; Start 05/30/17 at 10:00 Acetaminophen/ Hydrocodone Bitart ([place] 5-325 Mg) 2 tab Q4H PRN PO PAIN 6-10 Last administered on 06/01/17 03:35; Start 05/30/17 at 10:00 Hydromorphone HCl 0.5 mg 0.5 mg Q4H PRN IV PUSH BREAKTHROUGH PAIN; Start at 10:00 Sodium Chloride 1,000 ml @ 100 mls/hr Q10H IV Last administered on 06/01/17 03:36; Start 05/30/17 at 10:00 Vancomycin HCl/ Sodium Chloride (Vancomycin Inj/ NS 250 ml Inj) 262.5 ml @ 250 mls/hr Q12H IV Last administered on 05/31/17 23:11; Start 05/30/17 at 22:00 Miscellaneous Information SPECIFIC LAB TO BE DRAWN:VANCOMYCIN TROUGH DATE TO... ONCE ONCE .XX ; Start 06/01/17 at 09:45; Stop 06/01/17 at 09:46 Diatrizoate Meglum/ Diatrizoate Sod ( Gastromaxime Stevens) 18 ml STK-MED ONCE .ROUTE Last administered on 05/30/17 13:04; Start 05/30/17 at 13:01; Stop 08/06 at 13:02; Status DC Diatrizoate Meglum/ Diatrizoate Sod ( Gastromaxime Stevens) 18 ml ONCE ONCE PO ; Start 05/30/17 at 14:15; Stop 05/30/17 at 14:16; Status DC Iohexol (Omnipaque 350 Inj) 80 ml STK-MED ONCE IV Last administered on 14:59; Start 05/30/17 at 14:59; Stop 05/30/17 at 15:00; Status DC Cefazolin Sodium 3000 mg 3,000 mg STK-MED ONCE .ROUTE Last administered on 05/30t 16:41; Start 05/30/17 at 15:50; Stop 05/30/17 at 15:51; Status DC Sodium Chloride (NS Inj) 10 ml @ As Directed STK-MED ONCE .ROUTE ; Start at 15:52; Stop 05/30/17 at 15:53; Status DC Bacitracin (Baciguent Oint) 15 applic STK-MED ONCE .ROUTE Last administered on 05/30/17 16:53; Start 05/30/17 at 16:51; Stop 05/30/17 at 16:52; Status DC Fentanyl Citrate 250 mcg 250 mcg STK-MED ONCE .ROUTE ; Start 05/30/17 at 17:10; Stop 05/30/17 at 17:11; Status DC Lactated Ringer's 1,000 ml @ 30 mls/hr Q24H PRN IV SEE LABEL COMMENTS; Start at 18:45; Stop 06/02/17 at 18:44 Sodium Chloride (NS 500 ml Inj) 500 ml @ 30 mls/hr [id number] PRN IV SEE LABEL COMMENTS; Start 05/30/17 at 18:45; Stop 06/02/17 at 18:44 Metoprolol Tartrate (Lopressor) 25 mg [employer] PRN PO SEE LABEL COMMENTS; Start 05/30/17 at 18:45; Stop 06/02/17 at 18:44 Povidone Iodine (Betadine 5% Antisepsis Kit) 1 applic [employer] PRN EACH NARE SEE LABEL COMMENTS; Start 05/30/17 at 18:45; Stop 06/02/17 at 18:44 Chlorhexidine Gluconate (Chlorhexidine 2% Cloth) 3 pack [employer] PRN TOPICAL SEE LABEL COMMENTS; Start 05/30/17 at 18:45; Stop 06/02/17 at 18:44 Insulin Human Regular See Protocol Table ... [employer] PRN SQ SEE PROTOCOL TABLE ; Start 05/30/17 at 18:45; Stop 06/02/17 at 18:44 Clindamycin Phosphate/Sodium Chloride (Cleocin Inj/NS Inj) 106 ml @ 212 mls/hr Q8H IV Last administered on 06/01/17 04:04; Start 05/30/17 at 20:00 Potassium Chloride (KCl) 40 meq ONCE ONCE PO Last administered on 05/31/17 13 :05; Start 05/31/17 at 12:00; Stop 05/31/17 at 12:01; Status DC A/P Assessment and Plan A/P - severe sepsis due to cellulitis/abscess of the left thigh- s/p I/D and wound vac placement continue with IV antibiotics; Vanco,Clindamycin and Zosyn- continue pain control- follow the cultures- ID and general surgery following. -elevated LFT's- improving- abdominal sonogram with cholelithiasis with no biliary obstruction-hepatitis panel negative. GI following. -hyponatremia; resolved. -hypokalemia; will replace. -DVT prophylaxis with Lovenox when ok with surgery. Luna Goss MD Jun 01, 2017 09:39
[2017-06-01] MEDS ORDERED: PHARMACY ORDERED LAB ONE (09:45)
[2017-06-01] MEDS ORDERED: POTASSIUM CHLORIDE 25 MEQ EFFERVESCENT TAB PO ONE ×2 (09:45→14:00)
[2017-06-01] MEDS: VANCOMYCIN INJ 1,250 MG in SODIUM CHLOR 0.9% 250 ML INJ 250 ML IV SCH (10:55)
[2017-06-01] MEDS: MAGNESIUM OXIDE 400 MG TAB PO SCH ×2 (12:33→20:20)
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
[2017-06-01] MEDS: AMPICILLIN INJ 2,000 MG in SODIUM CHLORIDE 0.9% INJ 100 ML IV SCH ×2 (16:18→20:20)
--- NOTE | 2017-06-01 17:49 | HHI.PR ---
Subjective Subjective Notes called to bedside due to dysfunctional VAC, leak, medial part of sponge not sucking down. Objective Vitals/I&O Vital Signs Date Time Temp Pulse Resp B/P Pulse Ox O2 Delivery O2 Flow Rate FiO2 06/01/17 09:00 98 06/01/17 08:00 97.7 20 122/71 97 06/01/17 03:53 Room Air Labs Laboratory Tests Test 06/01/17 06/01/17 06:33 10:10 Sodium Level 141 Potassium Level 3.0 Chloride Level 105 Carbon Dioxide Level 26.7 Anion Gap 9 Blood Urea Nitrogen 2 Creatinine 0.71 Estimat Glomerular Filtration 88 Rate Random Glucose 119 Calcium Level 7.4 Protein Corrected Calcium 8.3 Magnesium Level 1.5 Total Bilirubin 1.3 Aspartate Amino Transf 100 (AST/SGOT) Alanine Aminotransferase 332 (ALT/SGPT) Alkaline Phosphatase 83 Total Protein 5.4 Albumin 2.0 Tumor Marker Alpha Fetoprotein 6.5 Vancomycin Level Trough 13.7 Date/Time Procedure Status Source Growth 05/30/17 10:06 Gram Stain - Final Complete Wound Drainage 05/30/17 10:06 Wound Culture - Final Complete Group A Beta Strep 05/30/17 08:30 Aerobic Blood Culture - Preliminary Resulted Blood Peripheral NO GROWTH IN 2 DAYS 05/30/17 08:30 Anaerobic Blood Culture - Preliminary Resulted Blood Peripheral NO GROWTH IN 2 DAYS Radiology Last 48 hours Impressions Liver Ultrasound 05/30/17 0000 Signed Impressions: Service Date/Time: May 10:43 - CONCLUSION: 1. Multiple stones in the gallbladder. No definite biliary tract obstruction at this time. 2. The liver is mildly prominent in size. Tom Archer MD Femur X-Ray 05/30/17 0000 Signed Impressions: Service Date/Time: May 08:53 - CONCLUSION: Unremarkable examination of the left femur. Anders Pena MD Abdomen/Pelvis CT 05/30/17 0000 Signed Impressions: Service Date/Time: May 14:49 - CONCLUSION: 1. There is scattered fatty infiltration throughout the liver. 2. Gallstones in the gallbladder. No biliary tract obstruction. 3. Otherwise, unremarkable examination. Tom Archer MD Narrative Exam L thigh VAC evaluated, attempt to reinforce unsuccessful. A/P Assessment and Plan Dysfunctional VAC dressing L thigh, s/p I and D. I offered conversion to traditional dressing vs VAC dressing change in OR tomorrow morning. The patient wishes to have VAC change in OR tomorrow. Thang Means MD Jun 01, 2017 17:49
[2017-06-02] VITALS (8 sets, daily range): BP systolic 114–143; BP diastolic 57–88; PULSE 69–84; RESP 18–20; TEMP 97.2–98.2; O2SAT 95–100
[2017-06-02] MEDS: AMPICILLIN INJ 2,000 MG in SODIUM CHLORIDE 0.9% INJ 100 ML IV SCH ×4 (00:09→12:30)
[2017-06-02] MEDS: ACETAMINOPHEN/HYDROcodone 325 MG/5 MG TAB PO PRN ×5 (00:10→20:15)
[2017-06-02] MEDS: CLINDAMYCIN INJ 900 MG in SODIUM CHLORIDE 0.9% INJ 100 ML IV SCH ×3 (04:16→20:13)
[2017-06-02] MEDS: SODIUM CHLOR 0.9% 1000 ML INJ 1,000 ML IV SCH ×2 (08:29→15:27)
[2017-06-02] MEDS: MAGNESIUM OXIDE 400 MG TAB PO SCH ×2 (09:00→20:13)
--- NOTE | 2017-06-02 09:31 | HHI.PR ---
Subjective Remarks in no acute distress. afebrile. pain is fairly controlled. no new complaints. Objective Vitals Vital Signs Date Time Temp Pulse Resp B/P Pulse Ox O2 Delivery O2 Flow Rate FiO2 06/02/17 08:50 97.3 69 143/88 97 06/02/17 04:00 Room Air 06/02/17 00:00 Room Air 06/02/17 00:00 97.9 70 20 134/80 95 06/01/17 20:00 73 06/01/17 20:00 98.4 71 19 130/77 94 06/01/17 20:00 Room Air 06/01/17 16:00 98.3 86 20 116/66 96 06/01/17 16:00 Room Air 06/01/17 12:00 Room Air 06/01/17 12:00 97.9 97 20 156/86 98 I/O 06/01/17 06/01/17 06/01/17 06/02/17 06/02/17 06/02/17 07:00 15:00 23:00 07:00 15:00 23:00 Intake Total 885 ml 2211 ml 1169 ml 1027 ml Output Total 400 ml 700 ml Balance 485 ml 1511 ml 1169 ml 1027 ml Intake Oral 720 ml 480 ml 240 ml IV Total 885 ml 1491 ml 689 ml 787 ml Output Urine Total 400 ml 700 ml # Voids 2 3 # Bowel Movements 1 3 Result Diagram: 05/31/17 1158 06/01/17 0633 Imaging Last Impressions Liver Ultrasound 05/30/17 0000 Signed Impressions: Service Date/Time: May 10:43 - CONCLUSION: 1. Multiple stones in the gallbladder. No definite biliary tract obstruction at this time. 2. The liver is mildly prominent in size. Tom Archer MD Femur X-Ray 05/30/17 0000 Signed Impressions: Service Date/Time: May 08:53 - CONCLUSION: Unremarkable examination of the left femur. Anders Pena MD Abdomen/Pelvis CT 05/30/17 0000 Signed Impressions: Service Date/Time: May 14:49 - CONCLUSION: 1. There is scattered fatty infiltration throughout the liver. 2. Gallstones in the gallbladder. No biliary tract obstruction. 3. Otherwise, unremarkable examination. Tom J. Siragusa, MD Objective Remarks GENERAL: This is a well-nourished, well-developed patient, in no apparent distress. CARDIOVASCULAR: Regular rate and regular rhythm without murmurs, gallops, or rubs. RESPIRATORY: Clear to auscultation. Breath sounds equal bilaterally. No wheezes , rales, or rhonchi. GASTROINTESTINAL: Abdomen soft, non-tender, nondistended. Normal, active bowel sounds MUSCULOSKELETAL: left thigh covered with clean dressing with wound vac in place. NEURO: Alert & Oriented x4 to person, place, time, situation. Moves all ext x4 Procedures I/D of the left thigh abscess with wound vac placement. Medications and IVs Current Medications Acetaminophen 650 mg 650 mg ONCE ONCE PO Last administered on 05/30/17 09:14 ; Start 05/30/17 at 08:30; Stop 05/30/17 at 08:31; Status DC Piperacillin Sod/ Tazobactam Sod 100 ml @ 200 mls/hr ONCE STAT IV Last administered on 05/30/17 09:14; Start 05/30/17 at 08:17; Stop 05/30/17 at 08:46 ; Status DC Vancomycin HCl 1250 mg/Sodium Chloride 512.5 ml @ 257.5 mls/ hr ONCE STAT IV Last administered on 05/30/17 09:52; Start 05/30/17 at 08:17; Stop 05/30/17 at 10:19; Status DC Sodium Chloride 1,000 ml @ 1,000 mls/hr Q1H ONCE IV Last administered on 09:13; Start 05/30/17 at 08:17; Stop 05/30/17 at 09:16; Status DC Sodium Chloride 1,000 ml @ 1,000 mls/hr Q1H ONCE IV Last administered on 09:13; Start 05/30/17 at 08:17; Stop 05/30/17 at 09:16; Status DC Sodium Chloride (NS 1000 ml Inj) 100 ml @ 1,000 mls/hr Q6M ONCE IV Last administered on 05/30/17 09:53; Start 05/30/17 at 08:17; Stop 05/30/17 at 08:22 ; Status DC Lidocaine/ Epinephrine 10 ml 10 ml ONCE ONCE INFIL Last administered on 10:01; Start 05/30/17 at 08:30; Stop 05/30/17 at 08:31; Status DC Pharmacy Profile Note 0 ml @ 0 mls/hr UNSCH OTHER ; Start 05/30/17 at 10:00; Stop 06/01/17 at 15:04; Status DC Piperacillin Sod/ Tazobactam Sod (Zosyn 3.375 Gm Premix) 50 ml @ 100 mls/hr Q6H IV Last administered on 06/01/17 14:44; Start 05/30/17 at 15:00; Stop 10/06 at 15:04; Status DC Acetaminophen (Tylenol) 650 mg Q4H PRN PO FEVER; Start 05/30/17 at 10:00 Acetaminophen/ Hydrocodone Bitart ([place] 5-325 Mg) 1 tab Q4H PRN PO PAIN 1-5; Start 05/30/17 at 10:00 Acetaminophen/ Hydrocodone Bitart ([place] 5-325 Mg) 2 tab Q4H PRN PO PAIN 6-10 Last administered on 06/02/17 08:28; Start 05/30/17 at 10:00 Hydromorphone HCl 0.5 mg 0.5 mg Q4H PRN IV PUSH BREAKTHROUGH PAIN; Start at 10:00 Sodium Chloride 1,000 ml @ 100 mls/hr Q10H IV Last administered on 06/02/17 08:29; Start 05/30/17 at 10:00 Vancomycin HCl/ Sodium Chloride (Vancomycin Inj/ NS 250 ml Inj) 262.5 ml @ 250 mls/hr Q12H IV Last administered on 06/01/17 10:55; Start 05/30/17 at 22:00; Stop 06/01/17 at 15:05; Status DC Miscellaneous Information SPECIFIC LAB TO BE DRAWN:VANCOMYCIN TROUGH DATE TO... ONCE ONCE .XX Last administered on 06/01/17 09:45; Start 06/01/17 at 09:45; Stop 06/01/17 at 09:46; Status DC Diatrizoate Meglum/ Diatrizoate Sod ( Gastromaxime Liq) 18 ml STK-MED ONCE .ROUTE Last administered on 05/30/17 13:04; Start 05/30/17 at 13:01; Stop 08/06 at 13:02; Status DC Diatrizoate Meglum/ Diatrizoate Sod ([place]) 18 ml ONCE ONCE PO ; Start 05/30/17 at 14:15; Stop 05/30/17 at 14:16; Status DC Iohexol (Omnipaque 350 Inj) 80 ml STK-MED ONCE IV Last administered on 14:59; Start 05/30/17 at 14:59; Stop 05/30/17 at 15:00; Status DC Cefazolin Sodium 3000 mg 3,000 mg STK-MED ONCE .ROUTE Last administered on 05/30 16:41; Start 05/30/17 at 15:50; Stop 05/30/17 at 15:51; Status DC Sodium Chloride (NS Inj) 10 ml @ As Directed STK-MED ONCE .ROUTE ; Start at 15:52; Stop 05/30/17 at 15:53; Status DC Bacitracin (Baciguent Oint) 15 applic STK-MED ONCE .ROUTE Last administered on 05/30/17 16:53; Start 05/30/17 at 16:51; Stop 05/30/17 at 16:52; Status DC Fentanyl Citrate 250 mcg 250 mcg STK-MED ONCE .ROUTE ; Start 05/30/17 at 17:10; Stop 05/30/17 at 17:11; Status DC Lactated Ringer's 1,000 ml @ 30 mls/hr Q24H PRN IV SEE LABEL COMMENTS; Start at 18:45; Stop 06/02/17 at 18:44 Sodium Chloride (NS 500 ml Inj) 500 ml @ 30 mls/hr [id number] PRN IV SEE LABEL COMMENTS; Start 05/30/17 at 18:45; Stop 06/02/17 at 18:44 Metoprolol Tartrate (Lopressor) 25 mg MECHANICAL PRESS OPERATOR PRN PO SEE LABEL COMMENTS; Start 05/30/17 at 18:45; Stop 06/02/17 at 18:44 Povidone Iodine (Betadine 5% Antisepsis Kit) 1 applic MECHANICAL PRESS OPERATOR PRN EACH NARE SEE LABEL COMMENTS; Start 05/30/17 at 18:45; Stop 06/02/17 at 18:44 Chlorhexidine Gluconate (Chlorhexidine 2% Cloth) 3 pack MECHANICAL PRESS OPERATOR PRN TOPICAL SEE LABEL COMMENTS; Start 05/30/17 at 18:45; Stop 06/02/17 at 18:44 Insulin Human Regular See Protocol Table ... MECHANICAL PRESS OPERATOR PRN SQ SEE PROTOCOL TABLE ; Start 05/30/17 at 18:45; Stop 06/02/17 at 18:44 Clindamycin Phosphate/Sodium Chloride (Cleocin Inj/NS Inj) 106 ml @ 212 mls/hr Q8H IV Last administered on 06/02/17 04:16; Start 05/30/17 at 20:00 Potassium Chloride (KCl) 40 meq ONCE ONCE PO Last administered on 05/31/17 13 :05; Start 05/31/17 at 12:00; Stop 05/31/17 at 12:01; Status DC Potassium Bicarb/ Potassium Chloride (K-Lyte Cl Eff) 25 meq ONCE ONCE PO Last administered on 06/01/17 09:51; Start 06/01/17 at 09:45; Stop 06/01/17 at 09:46; Status DC Potassium Bicarb/ Potassium Chloride (K-Lyte Cl Eff) 25 meq ONCE ONCE PO Last administered on 06/01/17 14:44; Start 06/01/17 at 14:00; Stop 06/01/17 at 14:01; Status DC Magnesium Oxide 400 mg 400 mg Q12HR PO Last administered on 06/01/17 20:20; Start 06/01/17 at 13:00; Stop 06/03/17 at 12:59 Ampicillin Sodium 2000 mg/Sodium Chloride 100 ml @ 400 mls/hr Q4H IV Last administered on 06/02/17 08:28; Start 06/01/17 at 16:00; Stop 06/02/17 at 13:00 Ampicillin Sodium/ Sodium Chloride (Ampicillin Inj/ NS Inj) 100 ml @ 300 mls/ hr Q4H IV ; Start 06/02/17 at 16:00 A/P Assessment and Plan A/P - severe sepsis due to cellulitis/abscess of the left thigh- s/p I/D and wound vac placement continue with IV antibiotics per ID; Ampicillin and Clindamycin - continue pain control- follow the cultures- plan for wound vac change- per surgery. ID and general surgery following. -elevated LFT's- improving- abdominal sonogram with cholelithiasis with no biliary obstruction-hepatitis panel negative. GI following. -hyponatremia; resolved. -hypokalemia;replaced. -DVT prophylaxis with Lovenox when ok with surgery. Luna Goss MD Jun 02, 2017 09:31
[2017-06-02 10:07] LABS: BASOPHIL % 0.8 % (0.0-2.0); EOSINOPHIL # 0.2 TH/MM3 (0-0.4); EOSINOPHIL % 2.9 % (0.0-4.0); LYMPH % 28.3 % (9.0-44.0); LYMPHOCYTE # 1.5 TH/MM3 (1.0-4.8); MEAN CELL VOLUME 97.8 FL (80.0-100.0); MEAN CORPUSCULAR HEMOGLOBIN 33.8 PG (27.0-34.0); MEAN CORPUSCULAR HGB CONC 34.5 % (32.0-36.0); MONO % 10.4 % (0.0-8.0); NEUT % 57.6 % (16.0-70.0); PLATELET COUNT 258 TH/MM3 (150-450); RED BLOOD COUNT 3.68 MIL/MM3 (4.00-5.30); RED CELL DISTRIBUTION WIDTH 15.4 % (11.6-17.2); WHITE BLOOD COUNT 5.2 TH/MM3 (4.0-11.0)
[2017-06-02 10:13] LABS: ALT (GPT) 252 U/L (10-53); ANION GAP 9 MEQ/L (5-15); AST (GOT) 114 U/L (15-37); BLOOD UREA NITROGEN 2 MG/DL (7-18); CHLORIDE 106 MEQ/L (98-107); GLOMERULAR FILTRATION RATE 129 ML/MIN (>89); HEMO FLAGS AUTO DIFF; POTASSIUM 3.4 MEQ/L (3.5-5.1); SODIUM (NA) 140 MEQ/L (136-145)
[2017-06-02 10:16] LABS: ALKALINE PHOSPHATASE 109 U/L (45-117); TOTAL BILIRUBIN ADULT 0.9 MG/DL (0.2-1.0)
--- NOTE | 2017-06-02 10:47 | PD.OP ---
Operative Report Date of Surgery: Jun 02, 2017 Preoperative Diagnosis: L thigh abscess, VAC not functioning in place Postoperative Diagnosis: same Procedure: remove and replace VAC dressing. Partial closure of inferior/ medial L thigh wound, 10 cm single layer. Anesthesia: general Surgeon: Thang Means Independent Beauty Consultant(s): Staff Operation and Findings: pretty clean wound, inferior/medial 10 cm closed with running 2-0 nylon vertical mattress. Superior lateral redressed with VAC. No leak. Thang Means MD Jun 02, 2017 10:47
[2017-06-02] MEDS ORDERED: fentaNYL CITRATE 250 MCG/5 ML AMP ONE (10:53)
[2017-06-02] MEDS ORDERED: MIDAZOLAM HCL 2 MG/2 ML VIAL ONE (10:53)
[2017-06-02] MEDS ORDERED: DO NOT ADM ANY ANTICOAGULANT DRUGS PRN (11:45)
[2017-06-02] MEDS ORDERED: PROPOFOL 200 MG/20 ML AMP IV ONE (12:00)
[2017-06-02] MEDS ORDERED: ePHEDrine/NS 25 MG/5 ML SYR IV ONE (12:00)
[2017-06-02] MEDS ORDERED: ONDANSETRON HCL 4 MG/2 ML VIAL IV PUSH ONE (12:00)
[2017-06-02 12:08] LABS: BANDS 1 % (0-6); EOSINOPHILS 2 % (0-4); METAMYELOCYTES 4 % (0-1); NEUTROPHIL # MANUAL DIFF 3.6 TH/MM3 (1.8-7.7); POLYS (SEG NEUTROPHILS) 64 % (16-70); WBC DIFF SAMPLE 100
[2017-06-02 12:09] LABS: PLATELET ESTIMATE SMEAR NORMAL (NORMAL); PLATELET MORPHOLOGY NORMAL (NORMAL); SCAN/DIFF FINAL DIFF MANUAL
[2017-06-02] MEDS: HYDROmorphone HCL PF 1 MG/ML VIAL IV PUSH PRN ×3 (12:24→23:10)
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
[2017-06-02] MEDS ORDERED: POTASSIUM CHLORIDE 25 MEQ EFFERVESCENT TAB PO ONE (14:30)
[2017-06-02] MEDS: AMPICILLIN 2 GM/NS 100 ML IV SCH ×6 (15:26→23:10)
[2017-06-02 23:53] LABS: HCV RNA PCR IU/ML LESS THAN 15 IU/mL (()); HCV RNA PCR LOGIU/ML LESS THAN 1.18 (())
[2017-06-03] VITALS (9 sets, daily range): BP systolic 125–167; BP diastolic 70–87; PULSE 62–81; RESP 14–20; TEMP 95–98.7; O2SAT 93–98
[2017-06-03] MEDS: CLINDAMYCIN INJ 900 MG in SODIUM CHLORIDE 0.9% INJ 100 ML IV SCH ×3 (03:45→19:57)
[2017-06-03] MEDS: AMPICILLIN 2 GM/NS 100 ML IV SCH ×10 (03:45→19:57)
[2017-06-03] MEDS: ACETAMINOPHEN/HYDROcodone 325 MG/5 MG TAB PO PRN ×5 (03:46→21:47)
[2017-06-03] MEDS: SODIUM CHLOR 0.9% 1000 ML INJ 1,000 ML IV SCH ×3 (03:47→22:58)
[2017-06-03] MEDS: MAGNESIUM OXIDE 400 MG TAB PO SCH (07:30)
[2017-06-03] MEDS: HYDROmorphone HCL PF 1 MG/ML VIAL IV PUSH PRN ×5 (07:43→23:59)
--- NOTE | 2017-06-03 11:09 | HHI.PR ---
Subjective Remarks resting comfortably with no distress. pain is fairly controlled. no fever. Objective Vitals Vital Signs Date Time Temp Pulse Resp B/P Pulse Ox O2 Delivery O2 Flow Rate FiO2 06/03/17 08:48 Room Air 06/03/17 08:07 81 06/03/17 08:00 97.9 77 18 156/79 95 06/03/17 04:00 98.4 77 18 141/74 98 06/03/17 04:00 Room Air 06/03/17 00:00 Room Air 06/03/17 00:00 98.4 76 18 125/70 97 06/02/17 21:44 98 21 06/02/17 20:12 78 06/02/17 20:00 Room Air 06/02/17 20:00 98.2 77 18 114/57 97 06/02/17 18:15 2.00 06/02/17 17:22 97.7 84 124/73 96 06/02/17 16:10 Room Air 06/02/17 12:37 97.2 78 137/78 100 06/02/17 11:30 98.4 69 16 135/86 96 Nasal Cannula 2 06/02/17 11:15 70 15 138/75 95 Nasal Cannula 2 I/O 06/02/17 06/02/17 06/02/17 06/03/17 06/03/17 06/03/17 07:00 15:00 23:00 07:00 15:00 23:00 Intake Total 1027 ml 1275 ml 1372 ml 1199 ml Output Total 5 ml 1400 ml 1000 ml Balance 1027 ml 1270 ml -28 ml 199 ml Intake Oral 240 ml 240 ml 480 ml IV Total 787 ml 775 ml 1132 ml 719 ml Other 500 ml Output Urine Total 0 ml 1400 ml 1000 ml Estimated Blood Loss 5 ml # Voids 3 # Bowel Movements 1 Result Diagram: 06/02/1730 06/02/1730 Imaging Last Impressions Liver Ultrasound 05/30/17 0000 Signed Impressions: Service Date/Time: May 10:43 - CONCLUSION: 1. Multiple stones in the gallbladder. No definite biliary tract obstruction at this time. 2. The liver is mildly prominent in size. Tom Archer MD Femur X-Ray 05/30/17 0000 Signed Impressions: Service Date/Time: May 08:53 - CONCLUSION: Unremarkable examination of the left femur. Anders Pena MD Abdomen/Pelvis CT 05/30/17 0000 Signed Impressions: Service Date/Time: May 14:49 - CONCLUSION: 1. There is scattered fatty infiltration throughout the liver. 2. Gallstones in the gallbladder. No biliary tract obstruction. 3. Otherwise, unremarkable examination. Tom Archer MD Objective Remarks GENERAL: This is a well-nourished, well-developed patient, in no apparent distress. CARDIOVASCULAR: Regular rate and regular rhythm without murmurs, gallops, or rubs. RESPIRATORY: Clear to auscultation. Breath sounds equal bilaterally. No wheezes , rales, or rhonchi. GASTROINTESTINAL: Abdomen soft, non-tender, nondistended. Normal, active bowel sounds MUSCULOSKELETAL: left thigh covered with clean dressing with wound vac in place. NEURO: Alert & Oriented x4 to person, place, time, situation. Moves all ext x4 Procedures I/D of the left thigh abscess with wound vac placement. remove and replace VAC dressing. Partial closure of inferior/ medial L thigh wound, 10 cm single layer. Medications and IVs Current Medications Acetaminophen 650 mg 650 mg ONCE ONCE PO Last administered on 05/30/17 09:14 ; Start 05/30/17 at 08:30; Stop 05/30/17 at 08:31; Status DC Piperacillin Sod/ Tazobactam Sod 100 ml @ 200 mls/hr ONCE STAT IV Last administered on 05/30/17 09:14; Start 05/30/17 at 08:17; Stop 05/30/17 at 08:46 ; Status DC Vancomycin HCl 1250 mg/Sodium Chloride 512.5 ml @ 257.5 mls/ hr ONCE STAT IV Last administered on 05/30/17 09:52; Start 05/30/17 at 08:17; Stop 05/30/17 at 10:19; Status DC Sodium Chloride 1,000 ml @ 1,000 mls/hr Q1H ONCE IV Last administered on 09:13; Start 05/30/17 at 08:17; Stop 05/30/17 at 09:16; Status DC Sodium Chloride 1,000 ml @ 1,000 mls/hr Q1H ONCE IV Last administered on 09:13; Start 05/30/17 at 08:17; Stop 05/30/17 at 09:16; Status DC Sodium Chloride (NS 1000 ml Inj) 100 ml @ 1,000 mls/hr Q6M ONCE IV Last administered on 05/30/17 09:53; Start 05/30/17 at 08:17; Stop 05/30/17 at 08:22 ; Status DC Lidocaine/ Epinephrine 10 ml 10 ml ONCE ONCE INFIL Last administered on 10:01; Start 05/30/17 at 08:30; Stop 05/30/17 at 08:31; Status DC Pharmacy Profile Note 0 ml @ 0 mls/hr UNSCH OTHER ; Start 05/30/17 at 10:00; Stop 06/01/17 at 15:04; Status DC Piperacillin Sod/ Tazobactam Sod (Zosyn 3.375 Gm Premix) 50 ml @ 100 mls/hr Q6H IV Last administered on 06/01/17 14:44; Start 05/30/17 at 15:00; Stop 10/06 at 15:04; Status DC Acetaminophen (Tylenol) 650 mg Q4H PRN PO FEVER; Start 05/30/17 at 10:00 Acetaminophen/ Hydrocodone Bitart ([place] 5-325 Mg) 1 tab Q4H PRN PO PAIN 1-5; Start 05/30/17 at 10:00 Acetaminophen/ Hydrocodone Bitart ([place] 5-325 Mg) 2 tab Q4H PRN PO PAIN 6-10 Last administered on 06/03/17 09:53; Start 05/30/17 at 10:00 Hydromorphone HCl 0.5 mg 0.5 mg Q4H PRN IV PUSH BREAKTHROUGH PAIN Last administered on 06/03/17 07:43; Start 05/30/17 at 10:00 Sodium Chloride 1,000 ml @ 100 mls/hr Q10H IV Last administered on 06/03/17 03:47; Start 05/30/17 at 10:00 Vancomycin HCl/ Sodium Chloride (Vancomycin Inj/ NS 250 ml Inj) 262.5 ml @ 250 mls/hr Q12H IV Last administered on 06/01/17 10:55; Start 05/30/17 at 22:00; Stop 06/01/17 at 15:05; Status DC Miscellaneous Information SPECIFIC LAB TO BE DRAWN:VANCOMYCIN TROUGH DATE TO... ONCE ONCE .XX Last administered on 06/01/17 09:45; Start 06/01/17 at 09:45; Stop 06/01/17 at 09:46; Status DC Diatrizoate Meglum/ Diatrizoate Sod ( Gastroview Liq) 18 ml STK-MED ONCE .ROUTE Last administered on 05/30/17 13:04; Start 05/30/17 at 13:01; Stop 08/06 at 13:02; Status DC Diatrizoate Meglum/ Diatrizoate Sod ( Gastroview Liq) 18 ml ONCE ONCE PO ; Start 05/30/17 at 14:15; Stop 05/30/17 at 14:16; Status DC Iohexol (Omnipaque 350 Inj) 80 ml STK-MED ONCE IV Last administered on 14:59; Start 05/30/17 at 14:59; Stop 05/30/17 at 15:00; Status DC Cefazolin Sodium 3000 mg 3,000 mg STK-MED ONCE .ROUTE Last administered on 05/30 16:41; Start 05/30/17 at 15:50; Stop 05/30/17 at 15:51; Status DC Sodium Chloride (NS Inj) 10 ml @ As Directed STK-MED ONCE .ROUTE ; Start at 15:52; Stop 05/30/17 at 15:53; Status DC Bacitracin (Baciguent Oint) 15 applic STK-MED ONCE .ROUTE Last administered on 05/30/17 16:53; Start 05/30/17 at 16:51; Stop 05/30/17 at 16:52; Status DC Fentanyl Citrate 250 mcg 250 mcg STK-MED ONCE .ROUTE ; Start 05/30/17 at 17:10; Stop 05/30/17 at 17:11; Status DC Lactated Ringer's 1,000 ml @ 30 mls/hr Q24H PRN IV SEE LABEL COMMENTS; Start at 18:45; Stop 06/02/17 at 18:44; Status DC Sodium Chloride (NS 500 ml Inj) 500 ml @ 30 mls/hr [id number] PRN IV SEE LABEL COMMENTS; Start 05/30/17 at 18:45; Stop 06/02/17 at 18:44; Status DC Metoprolol Tartrate (Lopressor) 25 mg DOFFER PRN PO SEE LABEL COMMENTS; Start 05/30/17 at 18:45; Stop 06/02/17 at 18:44; Status DC Povidone Iodine (Betadine 5% Antisepsis Kit) 1 applic DOFFER PRN EACH NARE SEE LABEL COMMENTS; Start 05/30/17 at 18:45; Stop 06/02/17 at 18:44; Status DC Chlorhexidine Gluconate (Chlorhexidine 2% Cloth) 3 pack DOFFER PRN TOPICAL SEE LABEL COMMENTS; Start 05/30/17 at 18:45; Stop 06/02/17 at 18:44; Status DC Insulin Human Regular See Protocol Table ... DOFFER PRN SQ SEE PROTOCOL TABLE ; Start 05/30/17 at 18:45; Stop 06/02/17 at 18:44; Status DC Clindamycin Phosphate/Sodium Chloride (Cleocin Inj/NS Inj) 106 ml @ 212 mls/hr Q8H IV Last administered on 06/03/17 03:45; Start 05/30/17 at 20:00 Potassium Chloride (KCl) 40 meq ONCE ONCE PO Last administered on 05/31/17 13 :05; Start 05/31/17 at 12:00; Stop 05/31/17 at 12:01; Status DC Potassium Bicarb/ Potassium Chloride (K-Lyte Cl Eff) 25 meq ONCE ONCE PO Last administered on 06/01/17 09:51; Start 06/01/17 at 09:45; Stop 06/01/17 at 09:46; Status DC Potassium Bicarb/ Potassium Chloride (K-Lyte Cl Eff) 25 meq ONCE ONCE PO Last administered on 06/01/17 14:44; Start 06/01/17 at 14:00; Stop 06/01/17 at 14:01; Status DC Magnesium Oxide 400 mg 400 mg Q12HR PO Last administered on 06/03/17 07:30; Start 06/01/17 at 13:00; Stop 06/03/17 at 12:59 Ampicillin Sodium 2000 mg/Sodium Chloride 100 ml @ 400 mls/hr Q4H IV Last administered on 06/02/17 12:30; Start 06/01/17 at 16:00; Stop 06/02/17 at 13:00 ; Status DC Ampicillin Sodium/ Sodium Chloride (Ampicillin Inj/ NS Inj) 100 ml @ 300 mls/ hr Q4H IV Last administered on 06/03/17 07:31; Start 06/02/17 at 16:00 Midazolam HCl (Versed Inj) 2 mg STK-MED ONCE .ROUTE ; Start 06/02/17 at 10:53; Stop 06/02/17 at 10:54; Status DC Fentanyl Citrate (fentaNYL INJ) 250 mcg STK-MED ONCE .ROUTE ; Start 06/02/17 at 10:53; Stop 06/02/17 at 10:54; Status DC Miscellaneous Information ALL NURSING DEPARTME... UNSCH PRN .XX SEE LABEL COMMENTS; Start 06/02/17 at 11:45; Stop 06/03/17 at 11:44 Potassium Bicarb/ Potassium Chloride (K-Lyte Cl Eff) 25 meq ONCE ONCE PO Last administered on 06/02/17 15:25; Start 06/02/17 at 14:30; Stop 06/02/17 at 14:31; Status DC A/P Assessment and Plan A/P - severe sepsis due to cellulitis/abscess of the left thigh- s/p I/D and wound vac placement/ remove and replace VAC dressing and Partial closure of inferior/ medial L thigh wound, 10 cm single layer. continue with IV antibiotics per ID; Ampicillin and Clindamycin - continue pain control- follow the cultures- plan for wound vac change- per surgery. ID and general surgery following. -elevated LFT's- improving- abdominal sonogram with cholelithiasis with no biliary obstruction-hepatitis panel negative. GI follow-up appreciated and sign off- f/u as outpatient. -hyponatremia; resolved. -hypokalemia;replaced. -DVT prophylaxis with Lovenox when ok with surgery. Luna Goss MD Jun 03, 2017 11:09
--- NOTE | 2017-06-03 18:43 | HHI.IDPN ---
Subjective Subjective Remarks doing better co some pain in L groin area - impeoved no fever Antibiotics ampicillin clinda Allergies: Coded Allergies: No Known Allergies (Verified , 05/30/17) Objective . Vital Signs Date Time Temp Pulse Resp B/P Pulse Ox O2 Delivery O2 Flow Rate FiO2 06/03/17 16:00 98.7 72 20 165/86 96 06/03/17 12:23 93 06/03/17 12:00 95.0 68 20 167/87 95 06/03/17 08:48 Room Air 06/03/17 08:07 81 06/03/17 08:00 97.9 77 18 156/79 95 06/03/17 04:00 98.4 77 18 141/74 98 06/03/17 04:00 Room Air 06/03/17 00:00 Room Air 06/03/17 00:00 98.4 76 18 125/70 97 06/02/17 21:44 98 21 06/02/17 20:12 78 06/02/17 20:00 Room Air 06/02/17 20:00 98.2 77 18 114/57 97 06/02/17 06/02/17 06/03/17 14:59 22:59 06:59 Intake Total 1275 ml 1372 ml 1199 ml Output Total 5 ml 1400 ml 1000 ml Balance 1270 ml -28 ml 199 ml Intake Oral 240 ml 480 ml IV Total 775 ml 1132 ml 719 ml Other 500 ml Output Urine Total 0 ml 1400 ml 1000 ml Estimated Blood Loss 5 ml # Bowel Movements 1 . Laboratory Tests Test 06/02/17 09:30 White Blood Count 5.2 TH/MM3 Red Blood Count 3.68 MIL/MM3 Hemoglobin 12.4 GM/DL Hematocrit 36.0 % Mean Corpuscular Volume 97.8 FL Mean Corpuscular Hemoglobin 33.8 PG Mean Corpuscular Hemoglobin 34.5 % Concent Red Cell Distribution Width 15.4 % Platelet Count 258 TH/MM3 Mean Platelet Volume 7.4 FL Neutrophils (%) (Auto) 57.6 % Lymphocytes (%) (Auto) 28.3 % Monocytes (%) (Auto) 10.4 % Eosinophils (%) (Auto) 2.9 % Basophils (%) (Auto) 0.8 % Neutrophils # (Auto) 3.0 TH/MM3 Lymphocytes # (Auto) 1.5 TH/MM3 Monocytes # (Auto) 0.5 TH/MM3 Eosinophils # (Auto) 0.2 TH/MM3 Basophils # (Auto) 0.0 TH/MM3 CBC Comment AUTO DIFF Differential Total Cells 100 Counted Neutrophils % (Manual) 64 % Band Neutrophils % 1 % Lymphocytes % 23 % Monocytes % 6 % Eosinophils % 2 % Neutrophils # (Manual) 3.6 TH/MM3 Metamyelocytes 4 % Differential Comment FINAL DIFF MANUAL Platelet Estimate NORMAL Platelet Morphology Comment NORMAL Red Cell Morphology Comment NORMAL Laboratory Tests Test 06/02/17 09:30 Sodium Level 140 MEQ/L Potassium Level 3.4 MEQ/L Chloride Level 106 MEQ/L Carbon Dioxide Level 25.0 MEQ/L Anion Gap 9 MEQ/L Blood Urea Nitrogen 2 MG/DL Creatinine 0.51 MG/DL Estimat Glomerular Filtration 129 ML/MIN Rate Random Glucose 91 MG/DL Calcium Level 7.7 MG/DL Total Bilirubin 0.9 MG/DL Aspartate Amino Transf 114 U/L (AST/SGOT) Alanine Aminotransferase 252 U/L (ALT/SGPT) Alkaline Phosphatase 109 U/L Total Protein 5.5 GM/DL Albumin 2.0 GM/DL Imaging Last Impressions Liver Ultrasound 05/30/17 Signed Impressions: Service Date/Time: May 10:43 - CONCLUSION: 1. Multiple stones in the gallbladder. No definite biliary tract obstruction at this time. 2. The liver is mildly prominent in size. Tom Archer MD Femur X-Ray 05/30/17 Signed Impressions: Service Date/Time: May 08:53 - CONCLUSION: Unremarkable examination of the left femur. Anders Pena MD Abdomen/Pelvis CT 05/30/17 Signed Impressions: Service Date/Time: May 14:49 - CONCLUSION: 1. There is scattered fatty infiltration throughout the liver. 2. Gallstones in the gallbladder. No biliary tract obstruction. 3. Otherwise, unremarkable examination. Tom Archer MD Physical Exam CONSTITUTIONAL/GENERAL: This is an adequately nourished patient, in no apparent distress. TUBES/LINES/DRAINS: SKIN: No jaundice, no generalysed rashes. STATUS LOCALIS: L groin/ upper thigh area with less erythema, edema VAC in place over groin incision with serosang d/c incision is partially closed in medial aspect No Odor Lateral area to VAC is less indurated, mildly tender ; area of discoloration resolved RESPIRATORY/CHEST: Symmetric, unlabored respirations. GASTROINTESTINAL: Abdomen soft, benign MUSCULOSKELETAL: Extremities without clubbing, cyanosis, or edema. NEUROLOGICAL: Awake and alert. non focal PSYCHIATRIC: No obvious anxiety/depression. no apparent hallucinations or other psychotic thought process. Assessment & Plan Remarks L groin necrotizing infection following blunt trauma s/p ncision and Drainage with irrigation and debridement Left thigh wound with excision 25 cm2 subcutaneous tissue and VAC placement 05/30 - confirmed group A strep ETOH abuse Abnormal LFTs [facility] 11/22 sepsi: going down REc's: cont ampicillin cont clindamycin monitor for abx side effects - monitor clinically when ready to be d/c anticipate transition to PO abx (keflex) Monica Mcbride MD Jun 03, 2017 18:43
--- NOTE | 2017-06-03 18:53 | HHI.PR ---
Subjective Subjective Notes Ambulating in room Objective Vitals/I&O Vital Signs Date Time Temp Pulse Resp B/P Pulse Ox O2 Delivery O2 Flow Rate FiO2 06/03/17 16:00 98.7 72 20 165/86 96 06/03/17 08:48 Room Air 06/02/17 21:44 21 06/02/17 18:15 2.00 Labs Date/Time Procedure Status Source Growth 05/30/17 10:06 Gram Stain - Final Complete Wound Drainage 05/30/17 10:06 Wound Culture - Final Complete Group A Beta Strep 05/30/17 08:30 Aerobic Blood Culture - Preliminary Resulted Blood Peripheral NO GROWTH IN 4 DAYS 05/30/17 08:30 Anaerobic Blood Culture - Preliminary Resulted Blood Peripheral NO GROWTH IN 4 DAYS Radiology Last 48 hours Impressions Liver Ultrasound 05/30/17 0000 Signed Impressions: Service Date/Time: May 10:43 - CONCLUSION: 1. Multiple stones in the gallbladder. No definite biliary tract obstruction at this time. 2. The liver is mildly prominent in size. Tom Archer MD Femur X-Ray 05/30/17 0000 Signed Impressions: Service Date/Time: May 08:53 - CONCLUSION: Unremarkable examination of the left femur. Anders Pena MD Abdomen/Pelvis CT 05/30/17 0000 Signed Impressions: Service Date/Time: May 14:49 - CONCLUSION: 1. There is scattered fatty infiltration throughout the liver. 2. Gallstones in the gallbladder. No biliary tract obstruction. 3. Otherwise, unremarkable examination. oTm Archer MD Cardiovascular: Regular Lungs: Clear Abdomen: Non-distended, Non-tender Narrative Exam LEFT groin Wound Vac in place--- with good seal A/P Problem List: (1) Hypokalemia (2) Alcohol intoxication (3) Impetigo (4) Transaminitis (5) Cellulitis and abscess of leg (6) Severe sepsis Assessment and Plan 46 year old female with LEFT thigh wound' s/p I&D and Wound Vac change -Regular diet -Pain control -Plan for Wound Vac change on Saturday ---will attempt at bedside Attending Note - Dr. Olivo Comfortable; wants to take shower Wound clean; VAC intact The exam, history, and the medical decision-making described in the above note were completed with the assistance of the mid-level provider. I reviewed and agree with the findings presented. I attest that I had a [id number]-[id number] encounter with the patient on the same day, and personally performed and documented my assessment and findings in the medical record. Radha Pena Jun 03, 2017 18:53 Tato Olivo MD Jun 05, 2017 17:08
[2017-06-04] VITALS (8 sets, daily range): BP systolic 146–164; BP diastolic 72–86; PULSE 59–71; RESP 14–18; TEMP 97.3–98.5; O2SAT 93–99
[2017-06-04] MEDS: ACETAMINOPHEN/HYDROcodone 325 MG/5 MG TAB PO PRN ×6 (01:55→22:52)
[2017-06-04] MEDS: CLINDAMYCIN INJ 900 MG in SODIUM CHLORIDE 0.9% INJ 100 ML IV SCH ×3 (03:29→21:20)
[2017-06-04] MEDS: HYDROmorphone HCL PF 1 MG/ML VIAL IV PUSH PRN ×5 (03:49→21:19)
[2017-06-04] MEDS: AMPICILLIN 2 GM/NS 100 ML IV SCH ×12 (03:49→22:29)
--- NOTE | 2017-06-04 09:39 | MP ---
cc: THANG SOLARES M.D. DATE OF SURGERY: 06/02/2017 PREOPERATIVE DIAGNOSIS History of left thigh abscess, status post incision, drainage, debridement and VAC dressing with VAC not functioning. POSTOPERATIVE DIAGNOSIS History of left thigh abscess, status post incision, drainage, debridement and VAC dressing with VAC not functioning. PROCEDURE Removal and replacement of VAC dressing with partial closure of inferior medial left thigh wound, 10 cm, single layer. SURGEON Dr. Thang Solares ANESTHESIA General. INDICATIONS This is a 46-year-old woman who Dr. Olivo performed incision, drainage, debridement and VAC dressing placement of a left thigh abscess. Yesterday on rounds her dressing was not functioning properly and options for treatment were discussed. She wished to proceed with operative therapy, possible partial closure and VAC dressing change. INTRAOPERATIVE FINDINGS A pretty clean wound without any residual abscess collection. The inferior medial 10 cm was closed with running 2-0 nylon vertical mattress suture. The superior lateral portion was re-dressed with a VAC dressing. DESCRIPTION OF PROCEDURE IN DETAIL The patient was identified as January, taken to the operating room and placed in supine position. Sequential compression devices were placed on bilateral lower extremities. Following induction of adequate general endotracheal anesthesia the patient's left VAC dressing was removed and the leg was prepped and draped in the usual sterile fashion with Betadine. A timeout procedure was performed. Following completion of the timeout procedure to everyone's satisfaction within the room, the wound was actively irrigated. There was only minimal tissue that was sharply debrided. Electrocautery was used for hemostasis. It was determined the inferior medial 10 cm of the wound could be approximated. Two separate 2-0 nylon vertical mattress running sutures were placed to accomplish this. The lateral aspect of the wound superiorly was too spread apart to allow for primary closure and therefore a VAC dressing was placed in the standard fashion. The skin was prepped around the open wound with Mastisol and dried. A small VAC sponge was customized in size, placed within the wound and a VAC dressing applied in the standard fashion. It was connected to the VAC machine. There was no evidence of leak. The patient tolerated the procedure without apparent complication. Sponge, needle and instrument counts were correct at the end of the case. MD CHIQUITA Loera/ADOLPH /10:41 AM /9:30 AM
--- NOTE | 2017-06-04 09:51 | HHI.PR ---
Subjective Remarks resting comfortably with no distress. pain is controlled. no fever. no new complaints. Objective Vitals Vital Signs Date Time Temp Pulse Resp B/P Pulse Ox O2 Delivery O2 Flow Rate FiO2 06/04/17 09:44 18 06/04/17 09:29 Room Air 06/04/17 04:00 Room Air 06/04/17 04:00 98.0 61 14 146/73 93 06/04/17 00:00 Room Air 06/04/17 00:00 97.3 62 16 147/78 97 06/03/17 20:00 Room Air 06/03/17 20:00 98.0 62 14 151/84 94 06/03/17 19:47 63 06/03/17 16:00 98.7 72 20 165/86 96 06/03/17 12:23 93 06/03/17 12:00 95.0 68 20 167/87 95 I/O 06/03/17 06/03/17 06/03/17 06/04/17 06/04/17 06/04/17 07:00 15:00 23:00 07:00 15:00 23:00 Intake Total 1199 ml 876 ml 1530 ml 800 ml Output Total 1000 ml 1500 ml Balance 199 ml 876 ml 30 ml 800 ml Intake Oral 480 ml 730 ml IV Total 719 ml 876 ml 800 ml 800 ml Output Urine Total 1000 ml 1500 ml # Voids 5 # Bowel Movements 2 Result Diagram: 06/02/1730 06/02/17 0930 Imaging Last Impressions Liver Ultrasound 05/30/17 0000 Signed Impressions: Service Date/Time: May 10:43 - CONCLUSION: 1. Multiple stones in the gallbladder. No definite biliary tract obstruction at this time. 2. The liver is mildly prominent in size. Tom Archer MD Femur X-Ray 05/30/17 0000 Signed Impressions: Service Date/Time: May 08:53 - CONCLUSION: Unremarkable examination of the left femur. Anders Pena MD Abdomen/Pelvis CT 05/30/17 0000 Signed Impressions: Service Date/Time: May 14:49 - CONCLUSION: 1. There is scattered fatty infiltration throughout the liver. 2. Gallstones in the gallbladder. No biliary tract obstruction. 3. Otherwise, unremarkable examination. Tom J. Siragusa, MD Objective Remarks GENERAL: This is a well-nourished, well-developed patient, in no apparent distress. CARDIOVASCULAR: Regular rate and regular rhythm without murmurs, gallops, or rubs. RESPIRATORY: Clear to auscultation. Breath sounds equal bilaterally. No wheezes , rales, or rhonchi. GASTROINTESTINAL: Abdomen soft, non-tender, nondistended. Normal, active bowel sounds MUSCULOSKELETAL: left thigh covered with clean dressing with wound vac in place. NEURO: Alert & Oriented x4 to person, place, time, situation. Moves all ext x4 Procedures I/D of the left thigh abscess with wound vac placement. remove and replace VAC dressing. Partial closure of inferior/ medial L thigh wound, 10 cm single layer. Medications and IVs Current Medications Acetaminophen 650 mg 650 mg ONCE ONCE PO Last administered on 05/30/17 09:14 ; Start 05/30/17 at 08:30; Stop 05/30/17 at 08:31; Status DC Piperacillin Sod/ Tazobactam Sod 100 ml @ 200 mls/hr ONCE STAT IV Last administered on 05/30/17 09:14; Start 05/30/17 at 08:17; Stop 05/30/17 at 08:46 ; Status DC Vancomycin HCl 1250 mg/Sodium Chloride 512.5 ml @ 257.5 mls/ hr ONCE STAT IV Last administered on 05/30/17 09:52; Start 05/30/17 at 08:17; Stop 05/30/17 at 10:19; Status DC Sodium Chloride 1,000 ml @ 1,000 mls/hr Q1H ONCE IV Last administered on 09:13; Start 05/30/17 at 08:17; Stop 05/30/17 at 09:16; Status DC Sodium Chloride 1,000 ml @ 1,000 mls/hr Q1H ONCE IV Last administered on 09:13; Start 05/30/17 at 08:17; Stop 05/30/17 at 09:16; Status DC Sodium Chloride (NS 1000 ml Inj) 100 ml @ 1,000 mls/hr Q6M ONCE IV Last administered on 05/30/17 09:53; Start 05/30/17 at 08:17; Stop 05/30/17 at 08:22 ; Status DC Lidocaine/ Epinephrine 10 ml 10 ml ONCE ONCE INFIL Last administered on 10:01; Start 05/30/17 at 08:30; Stop 05/30/17 at 08:31; Status DC Pharmacy Profile Note 0 ml @ 0 mls/hr UNSCH OTHER ; Start 05/30/17 at 10:00; Stop 06/01/17 at 15:04; Status DC Piperacillin Sod/ Tazobactam Sod (Zosyn 3.375 Gm Premix) 50 ml @ 100 mls/hr Q6H IV Last administered on 06/01/17 14:44; Start 05/30/17 at 15:00; Stop 10/06 at 15:04; Status DC Acetaminophen (Tylenol) 650 mg Q4H PRN PO FEVER; Start 05/30/17 at 10:00 Acetaminophen/ Hydrocodone Bitart ([place] 5-325 Mg) 1 tab Q4H PRN PO PAIN 1-5; Start 05/30/17 at 10:00 Acetaminophen/ Hydrocodone Bitart ([place] 5-325 Mg) 2 tab Q4H PRN PO PAIN 6-10 Last administered on 06/04/17 05:44; Start 05/30/17 at 10:00 Hydromorphone HCl 0.5 mg 0.5 mg Q4H PRN IV PUSH BREAKTHROUGH PAIN Last administered on 06/04/17 08:21; Start 05/30/17 at 10:00 Sodium Chloride 1,000 ml @ 100 mls/hr Q10H IV Last administered on 06/03/17 22:58; Start 05/30/17 at 10:00 Vancomycin HCl/ Sodium Chloride (Vancomycin Inj/ NS 250 ml Inj) 262.5 ml @ 250 mls/hr Q12H IV Last administered on 06/01/17 10:55; Start 05/30/17 at 22:00; Stop 06/01/17 at 15:05; Status DC Miscellaneous Information SPECIFIC LAB TO BE DRAWN:VANCOMYCIN TROUGH DATE TO... ONCE ONCE .XX Last administered on 06/01/17 09:45; Start 06/01/17 at 09:45; Stop 06/01/17 at 09:46; Status DC Diatrizoate Meglum/ Diatrizoate Sod (Md Gastroview Liq) 18 ml STK-MED ONCE .ROUTE Last administered on 05/30/17 13:04; Start 05/30/17 at 13:01; Stop 08/06 at 13:02; Status DC Diatrizoate Meglum/ Diatrizoate Sod (Md Chloe Stevens) 18 ml ONCE ONCE PO ; Start 05/30/17 at 14:15; Stop 05/30/17 at 14:16; Status DC Iohexol (Omnipaque 350 Inj) 80 ml STK-MED ONCE IV Last administered on 14:59; Start 05/30/17 at 14:59; Stop 05/30/17 at 15:00; Status DC Cefazolin Sodium 3000 mg 3,000 mg STK-MED ONCE .ROUTE Last administered on 05/30 16:41; Start 05/30/17 at 15:50; Stop 05/30/17 at 15:51; Status DC Sodium Chloride (NS Inj) 10 ml @ As Directed STK-MED ONCE .ROUTE ; Start at 15:52; Stop 05/30/17 at 15:53; Status DC Bacitracin (Baciguent Oint) 15 applic STK-MED ONCE .ROUTE Last administered on 05/30/17 16:53; Start 05/30/17 at 16:51; Stop 05/30/17 at 16:52; Status DC Fentanyl Citrate 250 mcg 250 mcg STK-MED ONCE .ROUTE ; Start 05/30/17 at 17:10; Stop 05/30/17 at 17:11; Status DC Lactated Ringer's 1,000 ml @ 30 mls/hr Q24H PRN IV SEE LABEL COMMENTS; Start at 18:45; Stop 06/02/17 at 18:44; Status DC Sodium Chloride (NS 500 ml Inj) 500 ml @ 30 mls/hr [id number] PRN IV SEE LABEL COMMENTS; Start 05/30/17 at 18:45; Stop 06/02/17 at 18:44; Status DC Metoprolol Tartrate (Lopressor) 25 mg CUST[employer]S [employer]OR PRN PO SEE LABEL COMMENTS; Start 05/30/17 at 18:45; Stop 06/02/17 at 18:44; Status DC Povidone Iodine (Betadine 5% Antisepsis Kit) 1 applic [employer] PRN EACH NARE SEE LABEL COMMENTS; Start 05/30/17 at 18:45; Stop 06/02/17 at 18:44; Status DC Chlorhexidine Gluconate (Chlorhexidine 2% Cloth) 3 pack [employer] PRN TOPICAL SEE LABEL COMMENTS; Start 05/30/17 at 18:45; Stop 06/02/17 at 18:44; Status DC Insulin Human Regular See Protocol Table ... [employer]OR PRN SQ SEE PROTOCOL TABLE ; Start 05/30/17 at 18:45; Stop 06/02/17 at 18:44; Status DC Clindamycin Phosphate/Sodium Chloride (Cleocin Inj/NS Inj) 106 ml @ 212 mls/hr Q8H IV Last administered on 06/04/17 03:29; Start 05/30/17 at 20:00 Potassium Chloride (KCl) 40 meq ONCE ONCE PO Last administered on 05/31/17 13 :05; Start 05/31/17 at 12:00; Stop 05/31/17 at 12:01; Status DC Potassium Bicarb/ Potassium Chloride (K-Lyte Cl Eff) 25 meq ONCE ONCE PO Last administered on 06/01/17 09:51; Start 06/01/17 at 09:45; Stop 06/01/17 at 09:46; Status DC Potassium Bicarb/ Potassium Chloride (K-Lyte Cl Eff) 25 meq ONCE ONCE PO Last administered on 06/01/17 14:44; Start 06/01/17 at 14:00; Stop 06/01/17 at 14:01; Status DC Magnesium Oxide 400 mg 400 mg Q12HR PO Last administered on 06/03/17 07:30; Start 06/01/17 at 13:00; Stop 06/03/17 at 12:59; Status DC Ampicillin Sodium 2000 mg/Sodium Chloride 100 ml @ 400 mls/hr Q4H IV Last administered on 06/02/17 12:30; Start 06/01/17 at 16:00; Stop 06/02/17 at 13:00 ; Status DC Ampicillin Sodium/ Sodium Chloride (Ampicillin Inj/ NS Inj) 100 ml @ 300 mls/ hr Q4H IV Last administered on 06/04/17 03:49; Start 06/02/17 at 16:00 Midazolam HCl (Versed Inj) 2 mg STK-MED ONCE .ROUTE ; Start 06/02/17 at 10:53; Stop 06/02/17 at 10:54; Status DC Fentanyl Citrate (fentaNYL INJ) 250 mcg STK-MED ONCE .ROUTE ; Start 06/02/17 at 10:53; Stop 06/02/17 at 10:54; Status DC Miscellaneous Information ALL NURSING DEPARTME... UNSCH PRN .XX SEE LABEL COMMENTS; Start 06/02/17 at 11:45; Stop 06/03/17 at 12:06; Status DC Potassium Bicarb/ Potassium Chloride (K-Lyte Cl Eff) 25 meq ONCE ONCE PO Last administered on 06/02/17t 15:25; Start 06/02/17 at 14:30; Stop 06/02/17 at 14:31; Status DC A/P Assessment and Plan A/P - severe sepsis due to cellulitis/abscess of the left thigh- s/p I/D and wound vac placement/ remove and replace VAC dressing and Partial closure of inferior/ medial L thigh wound, 10 cm single layer. continue with IV antibiotics per ID; Ampicillin and Clindamycin - continue pain control- follow the cultures- plan for wound vac change tomorrow- per surgery. ID and general surgery following. -elevated LFT's- improving- abdominal sonogram with cholelithiasis with no biliary obstruction-hepatitis panel negative. GI follow-up appreciated and sign off- f/u as outpatient. -hyponatremia; resolved. -hypokalemia;replaced. -DVT prophylaxis with Lovenox when ok with surgery. Luna Goss MD Jun 04, 2017 09:51
[2017-06-04] MEDS: SODIUM CHLOR 0.9% 1000 ML INJ 1,000 ML IV SCH ×2 (09:53→20:00)
--- NOTE | 2017-06-04 12:47 | HHI.PR ---
Subjective Subjective Notes Resting in bed No issues overnight Objective Vitals/I&O Vital Signs Date Time Temp Pulse Resp B/P Pulse Ox O2 Delivery O2 Flow Rate FiO2 06/04/17 11:25 94 06/04/17 11:00 18 06/04/17 09:29 Room Air 06/04/17 08:00 98.1 67 146/79 06/02/17 21:44 21 06/02/17 18:15 2.00 Radiology Last 48 hours Impressions Liver Ultrasound 05/30/17 0000 Signed Impressions: Service Date/Time: May 10:43 - CONCLUSION: 1. Multiple stones in the gallbladder. No definite biliary tract obstruction at this time. 2. The liver is mildly prominent in size. Tom Archer MD Femur X-Ray 05/30/17 0000 Signed Impressions: Service Date/Time: May 08:53 - CONCLUSION: Unremarkable examination of the left femur. Anders Pena MD Abdomen/Pelvis CT 05/30/17 0000 Signed Impressions: Service Date/Time: May 14:49 - CONCLUSION: 1. There is scattered fatty infiltration throughout the liver. 2. Gallstones in the gallbladder. No biliary tract obstruction. 3. Otherwise, unremarkable examination. Tom Archer MD Cardiovascular: Regular Lungs: Clear Abdomen: Non-distended, Non-tender Extremities: Other (see below ) Narrative Exam LEFT groin Wound Vac in place--- with good seal A/P Assessment and Plan 46 year old female with LEFT thigh wound s/p I&D and Wound Vac change -Regular diet -Pain control -Plan for Wound Vac change on Saturday in [place] -Obtain consents -NPO after MN Attending Note - Dr. Olivo Comfortable; wound clean and VAC intact Discussed surgery and plans with patient; she is agreeable The exam, history, and the medical decision-making described in the above note were completed with the assistance of the mid-level provider. I reviewed and agree with the findings presented. I attest that I had a [id number] encounter with the patient on the same day, and personally performed and documented my assessment and findings in the medical record. Radha Pena Jun 04, 2017 12:47 Tato Olivo MD Jun 05, 2017 17:07
[2017-06-05] VITALS: BP 153/72; PULSE 70; RESP 19; TEMP 98; O2SAT 94
[2017-06-05] MEDS: HYDROmorphone HCL PF 1 MG/ML VIAL IV PUSH PRN ×5 (01:38→20:45)
[2017-06-05] MEDS: AMPICILLIN 2 GM/NS 100 ML IV SCH ×12 (01:41→22:43)
[2017-06-05] MEDS: CLINDAMYCIN INJ 900 MG in SODIUM CHLORIDE 0.9% INJ 100 ML IV SCH ×3 (03:54→20:43)
[2017-06-05 04:00] VITALS: BP 144/67; PULSE 64; RESP 20; TEMP 98.3; O2SAT 95
[2017-06-05] MEDS: SODIUM CHLOR 0.9% 1000 ML INJ 1,000 ML IV SCH ×2 (06:00→18:39)
[2017-06-05 08:00] VITALS: BP 165/77; PULSE 72; RESP 17; TEMP 98.4; O2SAT 92
[2017-06-05 12:00] VITALS: BP 141/65; PULSE 73; RESP 17; TEMP 98.2; O2SAT 94
[2017-06-05] MEDS ORDERED: ONDANSETRON HCL 4 MG/2 ML VIAL IV PUSH ONE (12:00)
[2017-06-05] MEDS ORDERED: PROPOFOL 200 MG/20 ML AMP IV ONE (12:00)
--- NOTE | 2017-06-05 12:27 | HHI.PR ---
Subjective Remarks resting comfortably with no distress. pain is controlled. no fever or new complaints. Objective Vitals Vital Signs Date Time Temp Pulse Resp B/P Pulse Ox O2 Delivery O2 Flow Rate FiO2 06/05/17 08:00 98.4 72 17 165/77 92 06/05/17 07:15 Room Air 06/05/17 04:00 98.3 64 20 144/67 95 06/05/17 04:00 Room Air 06/05/17 00:00 Room Air 06/05/17 00:00 98.0 70 19 153/72 94 06/04/17 20:00 Room Air 06/04/17 20:00 67 06/04/17 20:00 98.3 64 17 150/72 94 06/04/17 16:50 18 06/04/17 16:00 98.0 59 18 164/86 94 06/04/17 15:31 71 I/O 06/04/17 06/04/17 06/04/17 06/05/17 06/05/17 06/05/17 07:00 15:00 23:00 07:00 15:00 23:00 Intake Total 800 ml 960 ml 620 ml 0 ml Output Total 600 ml 850 ml Balance 800 ml 960 ml 20 ml -850 ml Intake Oral 960 ml 220 ml 0 ml IV Total 800 ml 400 ml Output Urine Total 600 ml 850 ml # Voids 6 3 # Bowel Movements 0 0 1 Result Diagram: 06/02/17 0930 06/02/17 0930 Imaging Last Impressions Liver Ultrasound 05/30/17 0000 Signed Impressions: Service Date/Time: May 10:43 - CONCLUSION: 1. Multiple stones in the gallbladder. No definite biliary tract obstruction at this time. 2. The liver is mildly prominent in size. Tom Archer MD Femur X-Ray 05/30/17 0000 Signed Impressions: Service Date/Time: May 08:53 - CONCLUSION: Unremarkable examination of the left femur. Anders Pena MD Abdomen/Pelvis CT 05/30/17 0000 Signed Impressions: Service Date/Time: May 14:49 - CONCLUSION: 1. There is scattered fatty infiltration throughout the liver. 2. Gallstones in the gallbladder. No biliary tract obstruction. 3. Otherwise, unremarkable examination. Tom Archer MD Objective Remarks GENERAL: This is a well-nourished, well-developed patient, in no apparent distress. CARDIOVASCULAR: Regular rate and regular rhythm without murmurs, gallops, or rubs. RESPIRATORY: Clear to auscultation. Breath sounds equal bilaterally. No wheezes , rales, or rhonchi. GASTROINTESTINAL: Abdomen soft, non-tender, nondistended. Normal, active bowel sounds MUSCULOSKELETAL: left thigh covered with clean dressing with wound vac in place. NEURO: Alert & Oriented x4 to person, place, time, situation. Moves all ext x4 Procedures I/D of the left thigh abscess with wound vac placement. remove and replace VAC dressing. Partial closure of inferior/ medial L thigh wound, 10 cm single layer. Medications and IVs Current Medications Acetaminophen 650 mg 650 mg ONCE ONCE PO Last administered on 05/30/17 09:14 ; Start 05/30/17 at 08:30; Stop 05/30/17 at 08:31; Status DC Piperacillin Sod/ Tazobactam Sod 100 ml @ 200 mls/hr ONCE STAT IV Last administered on 05/30/17 09:14; Start 05/30/17 at 08:17; Stop 05/30/17 at 08:46 ; Status DC Vancomycin HCl 1250 mg/Sodium Chloride 512.5 ml @ 257.5 mls/ hr ONCE STAT IV Last administered on 05/30/17 09:52; Start 05/30/17 at 08:17; Stop 05/30/17 at 10:19; Status DC Sodium Chloride 1,000 ml @ 1,000 mls/hr Q1H ONCE IV Last administered on 09:13; Start 05/30/17 at 08:17; Stop 05/30/17 at 09:16; Status DC Sodium Chloride 1,000 ml @ 1,000 mls/hr Q1H ONCE IV Last administered on 09:13; Start 05/30/17 at 08:17; Stop 05/30/17 at 09:16; Status DC Sodium Chloride (NS 1000 ml Inj) 100 ml @ 1,000 mls/hr Q6M ONCE IV Last administered on 05/30/17 09:53; Start 05/30/17 at 08:17; Stop 05/30/17 at 08:22 ; Status DC Lidocaine/ Epinephrine 10 ml 10 ml ONCE ONCE INFIL Last administered on 10:01; Start 05/30/17 at 08:30; Stop 05/30/17 at 08:31; Status DC Pharmacy Profile Note 0 ml @ 0 mls/hr UNSCH OTHER ; Start 05/30/17 at 10:00; Stop 06/01/17 at 15:04; Status DC Piperacillin Sod/ Tazobactam Sod (Zosyn 3.375 Gm Premix) 50 ml @ 100 mls/hr Q6H IV Last administered on 06/01/17 14:44; Start 05/30/17 at 15:00; Stop 10/06 at 15:04; Status DC Acetaminophen (Tylenol) 650 mg Q4H PRN PO FEVER; Start 05/30/17 at 10:00 Acetaminophen/ Hydrocodone Bitart ([place] 5-325 Mg) 1 tab Q4H PRN PO PAIN 1-5; Start 05/30/17 at 10:00 Acetaminophen/ Hydrocodone Bitart ([place] 5-325 Mg) 2 tab Q4H PRN PO PAIN 6-10 Last administered on 06/04/17 22:52; Start 05/30/17 at 10:00 Hydromorphone HCl 0.5 mg 0.5 mg Q4H PRN IV PUSH BREAKTHROUGH PAIN Last administered on 06/05/17 11:28; Start 05/30/17 at 10:00 Sodium Chloride 1,000 ml @ 100 mls/hr Q10H IV Last administered on 06/05/17 06:00; Start 05/30/17 at 10:00 Vancomycin HCl/ Sodium Chloride (Vancomycin Inj/ NS 250 ml Inj) 262.5 ml @ 250 mls/hr Q12H IV Last administered on 06/01/17 10:55; Start 05/30/17 at 22:00; Stop 06/01/17 at 15:05; Status DC Miscellaneous Information SPECIFIC LAB TO BE DRAWN:VANCOMYCIN TROUGH DATE TO... ONCE ONCE .XX Last administered on 06/01/17 09:45; Start 06/01/17 at 09:45; Stop 06/01/17 at 09:46; Status DC Diatrizoate Meglum/ Diatrizoate Sod ( Gastroview Liq) 18 ml STK-MED ONCE .ROUTE Last administered on 05/30/17 13:04; Start 05/30/17 at 13:01; Stop 08/06 at 13:02; Status DC Diatrizoate Meglum/ Diatrizoate Sod (Md Chloe Stevens) 18 ml ONCE ONCE PO ; Start 05/30/17 at 14:15; Stop 05/30/17 at 14:16; Status DC Iohexol (Omnipaque 350 Inj) 80 ml STK-MED ONCE IV Last administered on 14:59; Start 05/30/17 at 14:59; Stop 05/30/17 at 15:00; Status DC Cefazolin Sodium 3000 mg 3,000 mg STK-MED ONCE .ROUTE Last administered on 05/30 16:41; Start 05/30/17 at 15:50; Stop 05/30/17 at 15:51; Status DC Sodium Chloride (NS Inj) 10 ml @ As Directed STK-MED ONCE .ROUTE ; Start at 15:52; Stop 05/30/17 at 15:53; Status DC Bacitracin (Baciguent Oint) 15 applic STK-MED ONCE .ROUTE Last administered on 05/30/17 16:53; Start 05/30/17 at 16:51; Stop 05/30/17 at 16:52; Status DC Fentanyl Citrate 250 mcg 250 mcg STK-MED ONCE .ROUTE ; Start 05/30/17 at 17:10; Stop 05/30/17 at 17:11; Status DC Lactated Ringer's 1,000 ml @ 30 mls/hr Q24H PRN IV SEE LABEL COMMENTS; Start at 18:45; Stop 06/02/17 at 18:44; Status DC Sodium Chloride (NS 500 ml Inj) 500 ml @ 30 mls/hr [id number] PRN IV SEE LABEL COMMENTS; Start 05/30/17 at 18:45; Stop 06/02/17 at 18:44; Status DC Metoprolol Tartrate (Lopressor) 25 mg PAINTER PLATE PRN PO SEE LABEL COMMENTS; Start 05/30/17 at 18:45; Stop 06/02/17 at 18:44; Status DC Povidone Iodine (Betadine 5% Antisepsis Kit) 1 applic PAINTER PLATE PRN EACH NARE SEE LABEL COMMENTS; Start 05/30/17 at 18:45; Stop 06/02/17 at 18:44; Status DC Chlorhexidine Gluconate (Chlorhexidine 2% Cloth) 3 pack PAINTER PLATE PRN TOPICAL SEE LABEL COMMENTS; Start 05/30/17 at 18:45; Stop 06/02/17 at 18:44; Status DC Insulin Human Regular See Protocol Table ... PAINTER PLATE PRN SQ SEE PROTOCOL TABLE ; Start 05/30/17 at 18:45; Stop 06/02/17 at 18:44; Status DC Clindamycin Phosphate/Sodium Chloride (Cleocin Inj/NS Inj) 106 ml @ 212 mls/hr Q8H IV Last administered on 06/05/17 11:42; Start 05/30/17 at 20:00 Potassium Chloride (KCl) 40 meq ONCE ONCE PO Last administered on 05/31/17 13 :05; Start 05/31/17 at 12:00; Stop 05/31/17 at 12:01; Status DC Potassium Bicarb/ Potassium Chloride (K-Lyte Cl Eff) 25 meq ONCE ONCE PO Last administered on 06/01/17 09:51; Start 06/01/17 at 09:45; Stop 06/01/17 at 09:46; Status DC Potassium Bicarb/ Potassium Chloride (K-Lyte Cl Eff) 25 meq ONCE ONCE PO Last administered on 06/01/17 14:44; Start 06/01/17 at 14:00; Stop 06/01/17 at 14:01; Status DC Magnesium Oxide 400 mg 400 mg Q12HR PO Last administered on 06/03/17 07:30; Start 06/01/17 at 13:00; Stop 06/03/17 at 12:59; Status DC Ampicillin Sodium 2000 mg/Sodium Chloride 100 ml @ 400 mls/hr Q4H IV Last administered on 06/02/17 12:30; Start 06/01/17 at 16:00; Stop 06/02/17 at 13:00 ; Status DC Ampicillin Sodium/ Sodium Chloride (Ampicillin Inj/ NS Inj) 100 ml @ 300 mls/ hr Q4H IV Last administered on 06/04/17 09:53; Start 06/02/17 at 16:00; Stop 06/04/17 at 11:26; Status DC Midazolam HCl (Versed Inj) 2 mg STK-MED ONCE .ROUTE ; Start 06/02/17 at 10:53; Stop 06/02/17 at 10:54; Status DC Fentanyl Citrate (fentaNYL INJ) 250 mcg STK-MED ONCE .ROUTE ; Start 06/02/17 at 10:53; Stop 06/02/17 at 10:54; Status DC Miscellaneous Information ALL NURSING DEPARTME... UNSCH PRN .XX SEE LABEL COMMENTS; Start 06/02/17 at 11:45; Stop 06/03/17 at 12:06; Status DC Potassium Bicarb/ Potassium Chloride 25 meq 25 meq ONCE ONCE PO Last administered on 06/02/17t 15:25; Start 06/02/17 at 14:30; Stop 06/02/17 at 14:31 ; Status DC Ampicillin Sodium/ Sodium Chloride (Ampicillin Inj/ NS Inj) 100 ml @ 300 mls/ hr Q4H IV Last administered on 06/05/17t 08:49; Start 06/04/17 at 14:00 A/P Assessment and Plan A/P - severe sepsis due to cellulitis/abscess of the left thigh- s/p I/D and wound vac placement/ remove and replace VAC dressing and Partial closure of inferior/ medial L thigh wound, 10 cm single layer. continue with IV antibiotics per ID; Ampicillin and Clindamycin - continue pain control- blood cultures negative and wound culture with strep. wound vac management per surgery. ID and general surgery following. -elevated LFT's- improving- abdominal sonogram with cholelithiasis with no biliary obstruction-hepatitis panel negative. GI follow-up appreciated and sign off- f/u as outpatient. -hyponatremia; resolved. -hypokalemia;replaced. -DVT prophylaxis with Lovenox when ok with surgery. Luna Goss MD Jun 05, 2017 12:27
[2017-06-05] MEDS ORDERED: LIDOCAINE HCL 1% 50 ML VIAL ONE (15:39)
[2017-06-05] MEDS ORDERED: MIDAZOLAM HCL 2 MG/2 ML VIAL ONE (15:55)
[2017-06-05] MEDS ORDERED: FAMOTIDINE 20 MG/2 ML VIAL ONE (15:55)
[2017-06-05] MEDS ORDERED: DO NOT ADM ANY ANTICOAGULANT DRUGS PRN (16:51)
[2017-06-05] MEDS ORDERED: fentaNYL CITRATE 250 MCG/5 ML AMP ONE (17:00)
--- NOTE | 2017-06-05 17:06 | HHI.PR ---
cc: Tato Olivo MD Immediate Post Op Note Procedure Date: Jun 05, 2017 Pre Op Diagnosis: Left groin abscess Post Op Diagnosis: Same Surgeon: Tato Olivo Software Engineer Advisor(s): Uriel Oconnor CFA Procedure: Irrigation and debridement Left groin with VAC change Complications: None Specimen(s) removed: None Estimated blood loss: Minimal Anesthesia: General Drains: None Patient to: PACU Patient Condition: Good Date/Time of Procedure: SEE SURGICAL CARE RECORD Tato Olivo MD Jun 05, 2017 17:06
[2017-06-05] MEDS: ACETAMINOPHEN/HYDROcodone 325 MG/5 MG TAB PO PRN ×2 (18:41→22:43)
[2017-06-05 19:35] VITALS: BP 155/79; PULSE 98; RESP 16; TEMP 98.5; O2SAT 95
[2017-06-05 20:05] VITALS: PULSE 92
[2017-06-06] VITALS (8 sets, daily range): BP systolic 127–163; BP diastolic 69–85; PULSE 62–77; RESP 16–20; TEMP 97.7–99; O2SAT 91–96
[2017-06-06] MEDS: AMPICILLIN 2 GM/NS 100 ML IV SCH ×12 (01:07→21:14)
[2017-06-06] MEDS: HYDROmorphone HCL PF 1 MG/ML VIAL IV PUSH PRN ×6 (01:07→23:56)
[2017-06-06] MEDS: CLINDAMYCIN INJ 900 MG in SODIUM CHLORIDE 0.9% INJ 100 ML IV SCH ×3 (04:14→20:05)
[2017-06-06] MEDS: ACETAMINOPHEN/HYDROcodone 325 MG/5 MG TAB PO PRN ×5 (04:15→21:13)
[2017-06-06] MEDS: SODIUM CHLOR 0.9% 1000 ML INJ 1,000 ML IV SCH ×3 (04:17→21:14)
[2017-06-06 09:30] LABS: AUTOMATED NEUTROPHIL # 3.7 TH/MM3 (1.8-7.7); BASOPHIL % 0.8 % (0.0-2.0); EOSINOPHIL # 0.2 TH/MM3 (0-0.4); EOSINOPHIL % 2.7 % (0.0-4.0); HEMATOCRIT 34.9 % (35.0-46.0); LYMPH % 27.1 % (9.0-44.0); LYMPHOCYTE # 1.6 TH/MM3 (1.0-4.8); MEAN CELL VOLUME 99.8 FL (80.0-100.0); MEAN CORPUSCULAR HEMOGLOBIN 32.5 PG (27.0-34.0); MEAN CORPUSCULAR HGB CONC 32.5 % (32.0-36.0); MONO % 7.4 % (0.0-8.0); PLATELET COUNT 384 TH/MM3 (150-450); RED CELL DISTRIBUTION WIDTH 16.7 % (11.6-17.2)
[2017-06-06 09:36] LABS: HEMO FLAGS AUTO DIFF
[2017-06-06 09:57] LABS: ANION GAP 5 MEQ/L (5-15); AST (GOT) 19 U/L (15-37); BICARBONATE 29.6 MEQ/L (21.0-32.0); BLOOD UREA NITROGEN 3 MG/DL (7-18); CHLORIDE 104 MEQ/L (98-107); GLOMERULAR FILTRATION RATE 91 ML/MIN (>89); POTASSIUM 3.7 MEQ/L (3.5-5.1); SODIUM (NA) 139 MEQ/L (136-145)
[2017-06-06 10:03] LABS: ALKALINE PHOSPHATASE 73 U/L (45-117); ALT (GPT) 72 U/L (10-53); TOTAL BILIRUBIN ADULT 0.5 MG/DL (0.2-1.0)
[2017-06-06 10:40] LABS: SCAN/DIFF AUTO DIFF CONFIRMED
--- NOTE | 2017-06-06 10:46 | HHI.PR ---
Subjective Remarks resting comfortably with no distress. has some pain to the site of wound vac. otherwise no other complaints. afebrile. Objective Vitals Vital Signs Date Time Temp Pulse Resp B/P Pulse Ox O2 Delivery O2 Flow Rate FiO2 06/06/17 09:10 Room Air 06/06/17 09:10 62 06/06/17 08:00 97.7 77 18 154/79 93 06/06/17 03:40 98.5 66 16 127/70 92 06/06/17 00:35 98.6 75 16 131/69 91 06/06/17 00:00 Room Air 06/05/17 20:05 92 06/05/17 20:00 Room Air 06/05/17 19:35 98.5 98 16 155/79 95 06/05/17 17:30 74 16 143/82 96 Room Air 06/05/17 17:15 78 16 149/84 96 06/05/17 17:00 84 16 139/82 96 Nasal Cannula 2 06/05/17 16:51 97.5 74 16 146/71 94 Nasal Cannula 2 06/05/17 12:00 98.2 73 17 141/65 94 I/O 06/05/17 06/05/17 06/05/17 06/06/17 06/06/17 06/06/17 06:59 14:59 22:59 06:59 14:59 22:59 Intake Total 0 ml 0 ml 2059 ml 1122 ml Output Total 850 ml 501 ml 600 ml Balance -850 ml 0 ml 1558 ml 522 ml Intake Oral 0 ml 0 ml 480 ml 180 ml IV Total 1579 ml 942 ml Output Urine Total 850 ml 500 ml 600 ml Stool Total 1 ml # Voids 3 3 # Bowel Movements 1 1 1 Result Diagram: 06/06/17 0826 06/06/17 0826 Imaging Last Impressions Liver Ultrasound 05/30/17 0000 Signed Impressions: Service Date/Time: May 10:43 - CONCLUSION: 1. Multiple stones in the gallbladder. No definite biliary tract obstruction at this time. 2. The liver is mildly prominent in size. Tom Archer MD Femur X-Ray 05/30/17 0000 Signed Impressions: Service Date/Time: May 08:53 - CONCLUSION: Unremarkable examination of the left femur. Anders Pena MD Abdomen/Pelvis CT 05/30/17 0000 Signed Impressions: Service Date/Time: May 14:49 - CONCLUSION: 1. There is scattered fatty infiltration throughout the liver. 2. Gallstones in the gallbladder. No biliary tract obstruction. 3. Otherwise, unremarkable examination. Tom Archer MD Objective Remarks GENERAL: This is a well-nourished, well-developed patient, in no apparent distress. CARDIOVASCULAR: Regular rate and regular rhythm without murmurs, gallops, or rubs. RESPIRATORY: Clear to auscultation. Breath sounds equal bilaterally. No wheezes , rales, or rhonchi. GASTROINTESTINAL: Abdomen soft, non-tender, nondistended. Normal, active bowel sounds MUSCULOSKELETAL: left thigh covered with clean dressing with wound vac in place. NEURO: Alert & Oriented x4 to person, place, time, situation. Moves all ext x4 Procedures I/D of the left thigh abscess with wound vac placement. remove and replace VAC dressing. Partial closure of inferior/ medial L thigh wound, 10 cm single layer. I/D and wound vac change on 06/05/17. Medications and IVs Current Medications Acetaminophen 650 mg 650 mg ONCE ONCE PO Last administered on 05/30/17 09:14 ; Start 05/30/17 at 08:30; Stop 05/30/17 at 08:31; Status DC Piperacillin Sod/ Tazobactam Sod 100 ml @ 200 mls/hr ONCE STAT IV Last administered on 05/30/17 09:14; Start 05/30/17 at 08:17; Stop 05/30/17 at 08:46 ; Status DC Vancomycin HCl 1250 mg/Sodium Chloride 512.5 ml @ 257.5 mls/ hr ONCE STAT IV Last administered on 05/30/17 09:52; Start 05/30/17 at 08:17; Stop 05/30/17 at 10:19; Status DC Sodium Chloride 1,000 ml @ 1,000 mls/hr Q1H ONCE IV Last administered on 09:13; Start 05/30/17 at 08:17; Stop 05/30/17 at 09:16; Status DC Sodium Chloride 1,000 ml @ 1,000 mls/hr Q1H ONCE IV Last administered on 09:13; Start 05/30/17 at 08:17; Stop 05/30/17 at 09:16; Status DC Sodium Chloride (NS 1000 ml Inj) 100 ml @ 1,000 mls/hr Q6M ONCE IV Last administered on 05/30/17 09:53; Start 05/30/17 at 08:17; Stop 05/30/17 at 08:22 ; Status DC Lidocaine/ Epinephrine 10 ml 10 ml ONCE ONCE INFIL Last administered on 10:01; Start 05/30/17 at 08:30; Stop 05/30/17 at 08:31; Status DC Pharmacy Profile Note 0 ml @ 0 mls/hr UNSCH OTHER ; Start 05/30/17 at 10:00; Stop 06/01/17 at 15:04; Status DC Piperacillin Sod/ Tazobactam Sod (Zosyn 3.375 Gm Premix) 50 ml @ 100 mls/hr Q6H IV Last administered on 06/01/17 14:44; Start 05/30/17 at 15:00; Stop 10/06 at 15:04; Status DC Acetaminophen (Tylenol) 650 mg Q4H PRN PO FEVER; Start 05/30/17 at 10:00 Acetaminophen/ Hydrocodone Bitart ([place] 5-325 Mg) 1 tab Q4H PRN PO PAIN 1-5; Start 05/30/17 at 10:00 Acetaminophen/ Hydrocodone Bitart ([place] 5-325 Mg) 2 tab Q4H PRN PO PAIN 6-10 Last administered on 06/06/17 09:04; Start 05/30/17 at 10:00 Hydromorphone HCl 0.5 mg 0.5 mg Q4H PRN IV PUSH BREAKTHROUGH PAIN Last administered on 06/06/17 06:38; Start 05/30/17 at 10:00 Sodium Chloride 1,000 ml @ 100 mls/hr Q10H IV Last administered on 06/06/17 04:17; Start 05/30/17 at 10:00 Vancomycin HCl/ Sodium Chloride (Vancomycin Inj/ NS 250 ml Inj) 262.5 ml @ 250 mls/hr Q12H IV Last administered on 06/01/17 10:55; Start 05/30/17 at 22:00; Stop 06/01/17 at 15:05; Status DC Miscellaneous Information SPECIFIC LAB TO BE DRAWN:VANCOMYCIN TROUGH DATE TO... ONCE ONCE .XX Last administered on 06/01/17 09:45; Start 06/01/17 at 09:45; Stop 06/01/17 at 09:46; Status DC Diatrizoate Meglum/ Diatrizoate Sod ( Gastromaxime Lijono) 18 ml STK-MED ONCE .ROUTE Last administered on 05/30/17 13:04; Start 05/30/17 at 13:01; Stop 08/06 at 13:02; Status DC Diatrizoate Meglum/ Diatrizoate Sod ( Gastromaxime Liq) 18 ml ONCE ONCE PO ; Start 05/30/17 at 14:15; Stop 05/30/17 at 14:16; Status DC Iohexol (Omnipaque 350 Inj) 80 ml STK-MED ONCE IV Last administered on 14:59; Start 05/30/17 at 14:59; Stop 05/30/17 at 15:00; Status DC Cefazolin Sodium 3000 mg 3,000 mg STK-MED ONCE .ROUTE Last administered on 05/30 16:41; Start 05/30/17 at 15:50; Stop 05/30/17 at 15:51; Status DC Sodium Chloride (NS Inj) 10 ml @ As Directed STK-MED ONCE .ROUTE ; Start at 15:52; Stop 05/30/17 at 15:53; Status DC Bacitracin (Baciguent Oint) 15 applic STK-MED ONCE .ROUTE Last administered on 05/30/17 16:53; Start 05/30/17 at 16:51; Stop 05/30/17 at 16:52; Status DC Fentanyl Citrate 250 mcg 250 mcg STK-MED ONCE .ROUTE ; Start 05/30/17 at 17:10; Stop 05/30/17 at 17:11; Status DC Lactated Ringer's 1,000 ml @ 30 mls/hr Q24H PRN IV SEE LABEL COMMENTS; Start at 18:45; Stop 06/02/17 at 18:44; Status DC Sodium Chloride (NS 500 ml Inj) 500 ml @ 30 mls/hr [id number] PRN IV SEE LABEL COMMENTS; Start 05/30/17 at 18:45; Stop 06/02/17 at 18:44; Status DC Metoprolol Tartrate (Lopressor) 25 mg BLISTER PACKING MACHINE TENDER PRN PO SEE LABEL COMMENTS; Start 05/30/17 at 18:45; Stop 06/02/17 at 18:44; Status DC Povidone Iodine (Betadine 5% Antisepsis Kit) 1 applic BLISTER PACKING MACHINE TENDER PRN EACH NARE SEE LABEL COMMENTS; Start 05/30/17 at 18:45; Stop 06/02/17 at 18:44; Status DC Chlorhexidine Gluconate (Chlorhexidine 2% Cloth) 3 pack BLISTER PACKING MACHINE TENDER PRN TOPICAL SEE LABEL COMMENTS; Start 05/30/17 at 18:45; Stop 06/02/17 at 18:44; Status DC Insulin Human Regular See Protocol Table ... BLISTER PACKING MACHINE TENDER PRN SQ SEE PROTOCOL TABLE ; Start 05/30/17 at 18:45; Stop 06/02/17 at 18:44; Status DC Clindamycin Phosphate/Sodium Chloride (Cleocin Inj/NS Inj) 106 ml @ 212 mls/hr Q8H IV Last administered on 06/06/17 04:14; Start 05/30/17 at 20:00 Potassium Chloride (KCl) 40 meq ONCE ONCE PO Last administered on 05/31/17 13 :05; Start 05/31/17 at 12:00; Stop 05/31/17 at 12:01; Status DC Potassium Bicarb/ Potassium Chloride (K-Lyte Cl Eff) 25 meq ONCE ONCE PO Last administered on 06/01/17 09:51; Start 06/01/17 at 09:45; Stop 06/01/17 at 09:46; Status DC Potassium Bicarb/ Potassium Chloride (K-Lyte Cl Eff) 25 meq ONCE ONCE PO Last administered on 06/01/17 14:44; Start 06/01/17 at 14:00; Stop 06/01/17 at 14:01; Status DC Magnesium Oxide 400 mg 400 mg Q12HR PO Last administered on 06/03/17 07:30; Start 06/01/17 at 13:00; Stop 06/03/17 at 12:59; Status DC Ampicillin Sodium 2000 mg/Sodium Chloride 100 ml @ 400 mls/hr Q4H IV Last administered on 06/02/17 12:30; Start 06/01/17 at 16:00; Stop 06/02/17 at 13:00 ; Status DC Ampicillin Sodium/ Sodium Chloride (Ampicillin Inj/ NS Inj) 100 ml @ 300 mls/ hr Q4H IV Last administered on 06/04/17 09:53; Start 06/02/17 at 16:00; Stop 06/04/17 at 11:26; Status DC Midazolam HCl (Versed Inj) 2 mg STK-MED ONCE .ROUTE ; Start 06/02/17 at 10:53; Stop 06/02/17 at 10:54; Status DC Fentanyl Citrate (fentaNYL INJ) 250 mcg STK-MED ONCE .ROUTE ; Start 06/02/17 at 10:53; Stop 06/02/17 at 10:54; Status DC Miscellaneous Information ALL NURSING DEPARTME... UNSCH PRN .XX SEE LABEL COMMENTS; Start 06/02/17 at 11:45; Stop 06/03/17 at 12:06; Status DC Potassium Bicarb/ Potassium Chloride 25 meq 25 meq ONCE ONCE PO Last administered on 06/02/17 15:25; Start 06/02/17 at 14:30; Stop 06/02/17 at 14:31 ; Status DC Ampicillin Sodium/ Sodium Chloride (Ampicillin Inj/ NS Inj) 100 ml @ 300 mls/ hr Q4H IV Last administered on 06/06/17 09:04; Start 06/04/17 at 14:00 Lidocaine HCl (Xylocaine 1% Inj (50 ml)) 50 ml STK-MED ONCE .ROUTE ; Start 06/05 at 15:39; Stop 06/05/17 at 15:40; Status DC Midazolam HCl (Versed Inj) 2 mg STK-MED ONCE .ROUTE Last administered on 15:57; Start 06/05/17 at 15:55; Stop 06/05/17 at 15:56; Status DC Famotidine (Pepcid Inj) 20 mg STK-MED ONCE .ROUTE Last administered on 15:55; Start 06/05/17 at 15:55; Stop 06/05/17 at 15:56; Status DC Fentanyl Citrate (fentaNYL INJ) 250 mcg STK-MED ONCE .ROUTE ; Start 06/05/17 at 17:00; Stop 06/05/17 at 17:01; Status DC Miscellaneous Information ALL NURSING DEPARTME... UNSCH PRN .XX SEE LABEL COMMENTS; Start 06/05/17 at 16:51; Stop 06/06/17 at 16:50 A/P Assessment and Plan A/P - severe sepsis due to cellulitis/abscess of the left thigh- s/p I/D and wound vac placement/ remove and replace VAC dressing and Partial closure of inferior/ medial L thigh wound, 10 cm single layer. continue with IV antibiotics per ID; Ampicillin and Clindamycin - continue pain control- blood cultures negative and wound culture with strep. wound vac was changed on 06/05/17. wound vac management per surgery. ID and general surgery following. -elevated LFT's- improving- abdominal sonogram with cholelithiasis with no biliary obstruction-hepatitis panel negative. GI follow-up appreciated and sign off- f/u as outpatient. -hyponatremia; resolved. -hypokalemia;replaced. -DVT prophylaxis with Lovenox when ok with surgery. Luna Goss MD Jun 06, 2017 10:45
--- NOTE | 2017-06-06 12:20 | HHI.PR ---
Subjective Subjective Notes Resting in bed No issues overnight Objective Vitals/I&O Vital Signs Date Time Temp Pulse Resp B/P Pulse Ox O2 Delivery O2 Flow Rate FiO2 06/06/17 09:10 Room Air 06/06/17 09:10 62 06/06/17 08:00 97.7 18 154/79 93 06/05/17 17:00 2 06/02/17 21:44 21 Labs Laboratory Tests Test 06/06/17 08:26 White Blood Count 6.0 Red Blood Count 3.50 Hemoglobin 11.3 Hematocrit 34.9 Mean Corpuscular Volume 99.8 Mean Corpuscular Hemoglobin 32.5 Mean Corpuscular Hemoglobin 32.5 Concent Red Cell Distribution Width 16.7 Platelet Count 384 Mean Platelet Volume 6.5 Neutrophils (%) (Auto) 62.0 Lymphocytes (%) (Auto) 27.1 Monocytes (%) (Auto) 7.4 Eosinophils (%) (Auto) 2.7 Basophils (%) (Auto) 0.8 Neutrophils # (Auto) 3.7 Lymphocytes # (Auto) 1.6 Monocytes # (Auto) 0.4 Eosinophils # (Auto) 0.2 Basophils # (Auto) 0.0 CBC Comment AUTO DIFF Differential Comment AUTO DIFF CONFIRMED Sodium Level 139 Potassium Level 3.7 Chloride Level 104 Carbon Dioxide Level 29.6 Anion Gap 5 Blood Urea Nitrogen 3 Creatinine 0.69 Estimat Glomerular Filtration 91 Rate Random Glucose 79 Calcium Level 7.8 Total Bilirubin 0.5 Aspartate Amino Transf 19 (AST/SGOT) Alanine Aminotransferase 72 (ALT/SGPT) Alkaline Phosphatase 73 Total Protein 5.5 Albumin 2.2 Radiology Last 48 hours Impressions Liver Ultrasound 05/30/17 0000 Signed Impressions: Service Date/Time: May 10:43 - CONCLUSION: 1. Multiple stones in the gallbladder. No definite biliary tract obstruction at this time. 2. The liver is mildly prominent in size. Tom Archer MD Femur X-Ray 05/30/17 0000 Signed Impressions: Service Date/Time: May 08:53 - CONCLUSION: Unremarkable examination of the left femur. Anders Pena MD Abdomen/Pelvis CT 05/30/17 0000 Signed Impressions: Service Date/Time: May 14:49 - CONCLUSION: 1. There is scattered fatty infiltration throughout the liver. 2. Gallstones in the gallbladder. No biliary tract obstruction. 3. Otherwise, unremarkable examination. Tom Archer MD Cardiovascular: Regular Lungs: Clear Abdomen: Non-distended, Non-tender Extremities: Other (see below ) Narrative Exam LEFT groin Wound Vac in place--- with good seal A/P Problem List: (1) Hypokalemia (2) Alcohol intoxication (3) Impetigo (4) Transaminitis (5) Cellulitis and abscess of leg (6) Severe sepsis Assessment and Plan 46 year old female with LEFT thigh wound s/p I&D and Wound Vac change -Regular diet -Pain control -Plan for Wound Vac change tomorrow at bedside---likely transition to wet to dry dressings -Regular diet Attending Note - Dr. Olivo Wound VAC intact Healing with minimal drainage For VAC change at bedside tomorrow. The exam, history, and the medical decision-making described in the above note were completed with the assistance of the mid-level provider. I reviewed and agree with the findings presented. I attest that I had a [id number] encounter with the patient on the same day, and personally performed and documented my assessment and findings in the medical record. Radha Pena Jun 06, 2017 12:20 Tato Olivo MD Jun 07, 2017 23:47
[2017-06-07] VITALS (10 sets, daily range): BP systolic 118–163; BP diastolic 75–94; PULSE 59–82; RESP 16–20; TEMP 98.1–99.5; O2SAT 91–96
[2017-06-07] MEDS: AMPICILLIN 2 GM/NS 100 ML IV SCH ×12 (01:15→21:45)
[2017-06-07] MEDS: ACETAMINOPHEN/HYDROcodone 325 MG/5 MG TAB PO PRN ×6 (01:16→23:23)
[2017-06-07] MEDS: CLINDAMYCIN INJ 900 MG in SODIUM CHLORIDE 0.9% INJ 100 ML IV SCH ×3 (03:54→20:00)
[2017-06-07] MEDS: HYDROmorphone HCL PF 1 MG/ML VIAL IV PUSH PRN ×5 (03:54→21:46)
[2017-06-07] MEDS: SODIUM CHLOR 0.9% 1000 ML INJ 1,000 ML IV SCH ×2 (08:47→15:13)
--- NOTE | 2017-06-07 13:33 | HHI.PR ---
Subjective Remarks resting comfortably with no distress. afebrile. pain is controlled. no new complaints. Objective Vitals Vital Signs Date Time Temp Pulse Resp B/P Pulse Ox O2 Delivery O2 Flow Rate FiO2 06/07/17 12:00 98.4 74 18 154/75 95 06/07/17 10:20 92 21 06/07/17 08:00 98.1 82 18 156/79 91 06/07/17 05:25 Room Air 06/07/17 04:00 98.3 74 20 118/78 96 06/07/17 01:48 Room Air 06/07/17 00:00 99.5 65 20 144/81 96 06/06/17 20:00 98.7 67 20 157/85 96 06/06/17 20:00 Nasal Cannula 2.00 06/06/17 20:00 76 06/06/17 17:50 94 Nasal Cannula 2.00 06/06/17 14:42 94 Nasal Cannula 2.00 I/O 06/06/17 06/06/17 06/06/17 06/07/17 06/07/17 06/07/17 07:00 15:00 23:00 07:00 15:00 23:00 Intake Total 1122 ml 720 ml 2019 ml 1650 ml Output Total 600 ml Balance 522 ml 720 ml 2019 ml 1650 ml Intake Oral 180 ml 720 ml 120 ml 840 ml IV Total 942 ml 1899 ml 810 ml Output Urine Total 600 ml # Voids 5 4 2 # Bowel Movements 1 1 2 0 Result Diagram: 06/06/17 0826 06/06/17 0826 Imaging Last Impressions Liver Ultrasound 05/30/17 0000 Signed Impressions: Service Date/Time: May 10:43 - CONCLUSION: 1. Multiple stones in the gallbladder. No definite biliary tract obstruction at this time. 2. The liver is mildly prominent in size. Tom Archer MD Femur X-Ray 05/30/17 0000 Signed Impressions: Service Date/Time: May 08:53 - CONCLUSION: Unremarkable examination of the left femur. Anders Pena MD Abdomen/Pelvis CT 05/30/17 0000 Signed Impressions: Service Date/Time: May 14:49 - CONCLUSION: 1. There is scattered fatty infiltration throughout the liver. 2. Gallstones in the gallbladder. No biliary tract obstruction. 3. Otherwise, unremarkable examination. Tom Archer MD Objective Remarks GENERAL: This is a well-nourished, well-developed patient, in no apparent distress. CARDIOVASCULAR: Regular rate and regular rhythm without murmurs, gallops, or rubs. RESPIRATORY: Clear to auscultation. Breath sounds equal bilaterally. No wheezes , rales, or rhonchi. GASTROINTESTINAL: Abdomen soft, non-tender, nondistended. Normal, active bowel sounds MUSCULOSKELETAL: left thigh covered with clean dressing with wound vac in place. NEURO: Alert & Oriented x4 to person, place, time, situation. Moves all ext x4 Procedures I/D of the left thigh abscess with wound vac placement. remove and replace VAC dressing. Partial closure of inferior/ medial L thigh wound, 10 cm single layer. I/D and wound vac change on 06/05/17. Medications and IVs Current Medications Acetaminophen 650 mg 650 mg ONCE ONCE PO Last administered on 05/30/17 09:14 ; Start 05/30/17 at 08:30; Stop 05/30/17 at 08:31; Status DC Piperacillin Sod/ Tazobactam Sod 100 ml @ 200 mls/hr ONCE STAT IV Last administered on 05/30/17 09:14; Start 05/30/17 at 08:17; Stop 05/30/17 at 08:46 ; Status DC Vancomycin HCl 1250 mg/Sodium Chloride 512.5 ml @ 257.5 mls/ hr ONCE STAT IV Last administered on 05/30/17 09:52; Start 05/30/17 at 08:17; Stop 05/30/17 at 10:19; Status DC Sodium Chloride 1,000 ml @ 1,000 mls/hr Q1H ONCE IV Last administered on 09:13; Start 05/30/17 at 08:17; Stop 05/30/17 at 09:16; Status DC Sodium Chloride 1,000 ml @ 1,000 mls/hr Q1H ONCE IV Last administered on 09:13; Start 05/30/17 at 08:17; Stop 05/30/17 at 09:16; Status DC Sodium Chloride (NS 1000 ml Inj) 100 ml @ 1,000 mls/hr Q6M ONCE IV Last administered on 05/30/17 09:53; Start 05/30/17 at 08:17; Stop 05/30/17 at 08:22 ; Status DC Lidocaine/ Epinephrine 10 ml 10 ml ONCE ONCE INFIL Last administered on 10:01; Start 05/30/17 at 08:30; Stop 05/30/17 at 08:31; Status DC Pharmacy Profile Note 0 ml @ 0 mls/hr UNSCH OTHER ; Start 05/30/17 at 10:00; Stop 06/01/17 at 15:04; Status DC Piperacillin Sod/ Tazobactam Sod (Zosyn 3.375 Gm Premix) 50 ml @ 100 mls/hr Q6H IV Last administered on 06/01/17 14:44; Start 05/30/17 at 15:00; Stop 10/06 at 15:04; Status DC Acetaminophen (Tylenol) 650 mg Q4H PRN PO FEVER; Start 05/30/17 at 10:00 Acetaminophen/ Hydrocodone Bitart ([place] 5-325 Mg) 1 tab Q4H PRN PO PAIN 1-5; Start 05/30/17 at 10:00 Acetaminophen/ Hydrocodone Bitart ([place] 5-325 Mg) 2 tab Q4H PRN PO PAIN 6-10 Last administered on 06/07/17 11:05; Start 05/30/17 at 10:00 Hydromorphone HCl 0.5 mg 0.5 mg Q4H PRN IV PUSH BREAKTHROUGH PAIN Last administered on 06/07/17 13:09; Start 05/30/17 at 10:00 Sodium Chloride 1,000 ml @ 100 mls/hr Q10H IV Last administered on 06/07/17 08:47; Start 05/30/17 at 10:00 Vancomycin HCl/ Sodium Chloride (Vancomycin Inj/ NS 250 ml Inj) 262.5 ml @ 250 mls/hr Q12H IV Last administered on 06/01/17 10:55; Start 05/30/17 at 22:00; Stop 06/01/17 at 15:05; Status DC Miscellaneous Information SPECIFIC LAB TO BE DRAWN:VANCOMYCIN TROUGH DATE TO... ONCE ONCE .XX Last administered on 06/01/17 09:45; Start 06/01/17 at 09:45; Stop 06/01/17 at 09:46; Status DC Diatrizoate Meglum/ Diatrizoate Sod (Md Chloe Stevens) 18 ml STK-MED ONCE .ROUTE Last administered on 05/30/17 13:04; Start 05/30/17 at 13:01; Stop 08/06 at 13:02; Status DC Diatrizoate Meglum/ Diatrizoate Sod (Md Chloe Stevens) 18 ml ONCE ONCE PO ; Start 05/30/17 at 14:15; Stop 05/30/17 at 14:16; Status DC Iohexol (Omnipaque 350 Inj) 80 ml STK-MED ONCE IV Last administered on 14:59; Start 05/30/17 at 14:59; Stop 05/30/17 at 15:00; Status DC Cefazolin Sodium 3000 mg 3,000 mg STK-MED ONCE .ROUTE Last administered on 05/30 16:41; Start 05/30/17 at 15:50; Stop 05/30/17 at 15:51; Status DC Sodium Chloride (NS Inj) 10 ml @ As Directed STK-MED ONCE .ROUTE ; Start at 15:52; Stop 05/30/17 at 15:53; Status DC Bacitracin (Baciguent Oint) 15 applic STK-MED ONCE .ROUTE Last administered on 05/30/17 16:53; Start 05/30/17 at 16:51; Stop 05/30/17 at 16:52; Status DC Fentanyl Citrate 250 mcg 250 mcg STK-MED ONCE .ROUTE ; Start 05/30/17 at 17:10; Stop 05/30/17 at 17:11; Status DC Lactated Ringer's 1,000 ml @ 30 mls/hr Q24H PRN IV SEE LABEL COMMENTS; Start at 18:45; Stop 06/02/17 at 18:44; Status DC Sodium Chloride (NS 500 ml Inj) 500 ml @ 30 mls/hr [id number] PRN IV SEE LABEL COMMENTS; Start 05/30/17 at 18:45; Stop 06/02/17 at 18:44; Status DC Metoprolol Tartrate (Lopressor) 25 mg [employer] PRN PO SEE LABEL COMMENTS; Start 05/30/17 at 18:45; Stop 06/02/17 at 18:44; Status DC Povidone Iodine (Betadine 5% Antisepsis Kit) 1 applic [employer] PRN EACH NARE SEE LABEL COMMENTS; Start 05/30/17 at 18:45; Stop 06/02/17 at 18:44; Status DC Chlorhexidine Gluconate (Chlorhexidine 2% Cloth) 3 pack [employer] PRN TOPICAL SEE LABEL COMMENTS; Start 05/30/17 at 18:45; Stop 06/02/17 at 18:44; Status DC Insulin Human Regular See Protocol Table ... [employer] PRN SQ SEE PROTOCOL TABLE ; Start 05/30/17 at 18:45; Stop 06/02/17 at 18:44; Status DC Clindamycin Phosphate/Sodium Chloride (Cleocin Inj/NS Inj) 106 ml @ 212 mls/hr Q8H IV Last administered on 06/07/17 11:09; Start 05/30/17 at 20:00 Potassium Chloride (KCl) 40 meq ONCE ONCE PO Last administered on 05/31/17 13 :05; Start 05/31/17 at 12:00; Stop 05/31/17 at 12:01; Status DC Potassium Bicarb/ Potassium Chloride (K-Lyte Cl Eff) 25 meq ONCE ONCE PO Last administered on 06/01/17 09:51; Start 06/01/17 at 09:45; Stop 06/01/17 at 09:46; Status DC Potassium Bicarb/ Potassium Chloride (K-Lyte Cl Eff) 25 meq ONCE ONCE PO Last administered on 06/01/17 14:44; Start 06/01/17 at 14:00; Stop 06/01/17 at 14:01; Status DC Magnesium Oxide 400 mg 400 mg Q12HR PO Last administered on 06/03/17 07:30; Start 06/01/17 at 13:00; Stop 06/03/17 at 12:59; Status DC Ampicillin Sodium 2000 mg/Sodium Chloride 100 ml @ 400 mls/hr Q4H IV Last administered on 06/02/17 12:30; Start 06/01/17 at 16:00; Stop 06/02/17 at 13:00 ; Status DC Ampicillin Sodium/ Sodium Chloride (Ampicillin Inj/ NS Inj) 100 ml @ 300 mls/ hr Q4H IV Last administered on 06/04/17 09:53; Start 06/02/17 at 16:00; Stop 06/04/17 at 11:26; Status DC Midazolam HCl (Versed Inj) 2 mg STK-MED ONCE .ROUTE ; Start 06/02/17 at 10:53; Stop 06/02/17 at 10:54; Status DC Fentanyl Citrate (fentaNYL INJ) 250 mcg STK-MED ONCE .ROUTE ; Start 06/02/17 at 10:53; Stop 06/02/17 at 10:54; Status DC Miscellaneous Information ALL NURSING DEPARTME... UNSCH PRN .XX SEE LABEL COMMENTS; Start 06/02/17 at 11:45; Stop 06/03/17 at 12:06; Status DC Potassium Bicarb/ Potassium Chloride 25 meq 25 meq ONCE ONCE PO Last administered on 06/02/17 15:25; Start 06/02/17 at 14:30; Stop 06/02/17 at 14:31 ; Status DC Ampicillin Sodium/ Sodium Chloride (Ampicillin Inj/ NS Inj) 100 ml @ 300 mls/ hr Q4H IV Last administered on 06/07/17 08:52; Start 06/04/17 at 14:00 Lidocaine HCl (Xylocaine 1% Inj (50 ml)) 50 ml STK-MED ONCE .ROUTE ; Start 06/05 at 15:39; Stop 06/05/17 at 15:40; Status DC Midazolam HCl (Versed Inj) 2 mg STK-MED ONCE .ROUTE Last administered on 15:57; Start 06/05/17 at 15:55; Stop 06/05/17 at 15:56; Status DC Famotidine (Pepcid Inj) 20 mg STK-MED ONCE .ROUTE Last administered on 15:55; Start 06/05/17 at 15:55; Stop 06/05/17 at 15:56; Status DC Fentanyl Citrate (fentaNYL INJ) 250 mcg STK-MED ONCE .ROUTE ; Start 06/05/17 at 17:00; Stop 06/05/17 at 17:01; Status DC Miscellaneous Information ALL NURSING DEPARTME... UNSCH PRN .XX SEE LABEL COMMENTS; Start 06/05/17 at 16:51; Stop 06/06/17 at 16:50; Status DC A/P Assessment and Plan A/P - severe sepsis due to cellulitis/abscess of the left thigh- s/p I/D and wound vac placement/ remove and replace VAC dressing and Partial closure of inferior/ medial L thigh wound, 10 cm single layer. continue with IV antibiotics per ID; Ampicillin and Clindamycin - continue pain control- blood cultures negative and wound culture with strep. wound vac was changed on 06/05/17; management per surgery. ID and general surgery following. -elevated LFT's- improving- abdominal sonogram with cholelithiasis with no biliary obstruction-hepatitis panel negative. GI follow-up appreciated and sign off- f/u as outpatient. -hyponatremia; resolved. -hypokalemia;replaced. -DVT prophylaxis with Lovenox when ok with surgery. Luna Goss MD Jun 07, 2017 13:33
--- NOTE | 2017-06-07 20:02 | HHI.PR ---
Subjective Subjective Notes Resting in bed No issues Objective Vitals/I&O Vital Signs Date Time Temp Pulse Resp B/P Pulse Ox O2 Delivery O2 Flow Rate FiO2 06/07/17 17:46 95 21 06/07/17 16:00 98.8 71 18 163/77 06/07/17 08:57 Room Air 06/06/17 20:00 2.00 Radiology Last 48 hours Impressions Liver Ultrasound 05/30/17 0000 Signed Impressions: Service Date/Time: May 10:43 - CONCLUSION: 1. Multiple stones in the gallbladder. No definite biliary tract obstruction at this time. 2. The liver is mildly prominent in size. Tom Archer MD Femur X-Ray 05/30/17 0000 Signed Impressions: Service Date/Time: May 08:53 - CONCLUSION: Unremarkable examination of the left femur. Anders Pena MD Abdomen/Pelvis CT 05/30/17 0000 Signed Impressions: Service Date/Time: May 14:49 - CONCLUSION: 1. There is scattered fatty infiltration throughout the liver. 2. Gallstones in the gallbladder. No biliary tract obstruction. 3. Otherwise, unremarkable examination. Tom Archer MD Cardiovascular: Regular Lungs: Clear Abdomen: Non-distended, Non-tender Extremities: Other (see below ) Narrative Exam LEFT groin Wound Vac in place; removed; wound bed clean without drainage; sponge replaced A/P Problem List: (1) Hypokalemia (2) Alcohol intoxication (3) Impetigo (4) Transaminitis (5) Cellulitis and abscess of leg (6) Severe sepsis Assessment and Plan 46 year old female with LEFT thigh wound s/p I&D and Wound Vac change -Regular diet -Pain control -Wound Vac changed at bedside -I will take off Saturday and place for wet to dry dressing transition -Regular diet -GS will see peripherally over the weekend Attending Note - Dr. Geovani Carver clean; some sutures removed VAC re-applied with SCIENT[employer] RE[employer] Radha Pena As above The exam, history, and the medical decision-making described in the above note were completed with the assistance of the mid-level provider. I reviewed and agree with the findings presented. I attest that I had a [id number] encounter with the patient on the same day, and personally performed and documented my assessment and findings in the medical record. Radha Pena Jun 07, 2017 20:02 Tato Olivo MD Jun 07, 2017 23:46
[2017-06-08] VITALS (7 sets, daily range): BP systolic 150–169; BP diastolic 67–84; PULSE 62–74; RESP 16–20; TEMP 97.3–98.8; O2SAT 94–96
[2017-06-08] MEDS: AMPICILLIN 2 GM/NS 100 ML IV SCH ×12 (01:41→22:10)
[2017-06-08] MEDS: HYDROmorphone HCL PF 1 MG/ML VIAL IV PUSH PRN ×6 (01:42→22:10)
[2017-06-08] MEDS: ACETAMINOPHEN/HYDROcodone 325 MG/5 MG TAB PO PRN ×5 (03:26→20:13)
[2017-06-08] MEDS: CLINDAMYCIN INJ 900 MG in SODIUM CHLORIDE 0.9% INJ 100 ML IV SCH ×3 (03:26→20:13)
[2017-06-08] MEDS: SODIUM CHLOR 0.9% 1000 ML INJ 1,000 ML IV SCH ×2 (03:27→13:31)
--- NOTE | 2017-06-08 15:18 | HHI.PR ---
Subjective Remarks Pt states that she feels better, pain better controlled. no nausea or vomiting, no CP/SOB Objective Vitals Vital Signs Date Time Temp Pulse Resp B/P Pulse Ox O2 Delivery O2 Flow Rate FiO2 06/08/17 12:00 Room Air 06/08/17 12:00 97.3 74 20 150/77 95 06/08/17 11:19 63 06/08/17 08:19 Room Air 06/08/17 08:00 98.1 62 20 169/83 94 06/08/17 04:34 Room Air 06/08/17 04:00 98.2 67 16 156/76 95 06/08/17 00:00 98.8 72 16 161/84 95 06/08/17 00:00 Room Air 06/07/17 20:39 62 06/07/17 20:00 Room Air 06/07/17 20:00 98.7 59 16 163/94 96 06/07/17 17:46 95 21 06/07/17 16:00 98.8 71 18 163/77 95 I/O 06/07/17 06/07/17 06/07/17 06/08/17 06/08/17 06/08/17 07:00 15:00 23:00 07:00 15:00 23:00 Intake Total 1650 ml 650 ml 3588 ml 857 ml 2023 ml Output Total 400 ml Balance 1650 ml 650 ml 3588 ml 457 ml 2023 ml Intake Oral 840 ml 650 ml IV Total 810 ml 3588 ml 857 ml 2023 ml Output Urine Total 400 ml # Voids 2 4 # Bowel Movements 0 2 Result Diagram: 06/06/17 0826 06/06/17 0826 Imaging Last Impressions Liver Ultrasound 05/30/17 0000 Signed Impressions: Service Date/Time: May 10:43 - CONCLUSION: 1. Multiple stones in the gallbladder. No definite biliary tract obstruction at this time. 2. The liver is mildly prominent in size. Tom Archer MD Femur X-Ray 05/30/17 0000 Signed Impressions: Service Date/Time: May 08:53 - CONCLUSION: Unremarkable examination of the left femur. Anders Pena MD Abdomen/Pelvis CT 05/30/17 0000 Signed Impressions: Service Date/Time: May 14:49 - CONCLUSION: 1. There is scattered fatty infiltration throughout the liver. 2. Gallstones in the gallbladder. No biliary tract obstruction. 3. Otherwise, unremarkable examination. Tom Archer MD Objective Remarks GENERAL: This is a well-nourished, well-developed patient, laying in bed CARDIOVASCULAR: Regular rate and regular rhythm without murmurs RESPIRATORY: Clear to auscultation. Breath sounds equal bilaterally. No wheezes GASTROINTESTINAL: Abdomen soft, non-tender, nondistended. MUSCULOSKELETAL: left thigh covered wound vac in place. decreasing erythema NEURO: Alert & Oriented. Moves all ext x4 Procedures I/D of the left thigh abscess with wound vac placement. remove and replace VAC dressing. Partial closure of inferior/ medial L thigh wound, 10 cm single layer. I/D and wound vac change on 06/05/17. A/P Problem List: (1) Severe sepsis ICD Code: A41.9 Status: Acute (2) Cellulitis and abscess of leg ICD Code: L03.119 Status: Acute Assessment and Plan - severe sepsis due to cellulitis/abscess of the left thigh- s/p I/D and wound vac placement/ remove and replace VAC dressing and Partial closure of inferior/ medial L thigh wound, 10 cm single layer. continue with IV antibiotics per ID; Ampicillin and Clindamycin - continue pain control- blood cultures negative and wound culture growing group A strep wound vac was changed on 06/07/17; management per surgery. Per their notes, removal of wound vac scheduled for saturday -elevated LFT's- improving- abdominal sonogram with cholelithiasis with no biliary obstruction-hepatitis panel negative. GI follow-up appreciated and has sign off- f/u as outpatient. -hyponatremia; resolved. -hypokalemia;resolved. -DVT prophylaxis with Lovenox when ok with surgery. Discharge Planning wound vac removal scheduled for saturday pt tells me that she is homeless. consult CM for d/c planning Leonela Spear MD Jun 08, 2017 15:18
--- NOTE | 2017-06-08 20:20 | HHI.PR ---
Subjective Subjective Notes Pain better Objective Vitals/I&O Vital Signs Date Time Temp Pulse Resp B/P Pulse Ox O2 Delivery O2 Flow Rate FiO2 06/08/17 16:00 Room Air 06/08/17 16:00 98.8 64 20 157/80 96 06/07/17 17:46 21 06/06/17 20:00 2.00 Radiology Last 48 hours Impressions Liver Ultrasound 05/30/17 0000 Signed Impressions: Service Date/Time: May 10:43 - CONCLUSION: 1. Multiple stones in the gallbladder. No definite biliary tract obstruction at this time. 2. The liver is mildly prominent in size. Tom Archer MD Femur X-Ray 05/30/17 0000 Signed Impressions: Service Date/Time: May 08:53 - CONCLUSION: Unremarkable examination of the left femur. Anders Pena MD Abdomen/Pelvis CT 05/30/17 0000 Signed Impressions: Service Date/Time: May 14:49 - CONCLUSION: 1. There is scattered fatty infiltration throughout the liver. 2. Gallstones in the gallbladder. No biliary tract obstruction. 3. Otherwise, unremarkable examination. Tom Archer MD A/P Problem List: (1) Hypokalemia (2) Alcohol intoxication (3) Impetigo (4) Transaminitis (5) Cellulitis and abscess of leg (6) Severe sepsis Assessment and Plan 46 year old female with LEFT thigh wound s/p I&D and Wound Vac change -Regular diet -Pain control -VAC dressing intact; will remove on Saturday and likely start wet to dry dressing changes. Tato Olivo MD Jun 08, 2017 20:20
[2017-06-08 23:51] LABS: MITOCHONDRIAL ABS LESS THAN 20.0 U (())
[2017-06-09] VITALS: BP 169/77; PULSE 61; RESP 18; TEMP 97.5; O2SAT 94
[2017-06-09] MEDS: ACETAMINOPHEN/HYDROcodone 325 MG/5 MG TAB PO PRN ×6 (00:12→21:31)
[2017-06-09] MEDS: AMPICILLIN 2 GM/NS 100 ML IV SCH ×12 (02:27→21:30)
[2017-06-09] MEDS: HYDROmorphone HCL PF 1 MG/ML VIAL IV PUSH PRN ×6 (02:27→23:10)
[2017-06-09 04:00] VITALS: BP 152/78; PULSE 60; RESP 20; TEMP 97.9; O2SAT 96
[2017-06-09] MEDS: CLINDAMYCIN INJ 900 MG in SODIUM CHLORIDE 0.9% INJ 100 ML IV SCH ×3 (04:36→20:28)
--- NOTE | 2017-06-09 13:50 | HHI.PR ---
Subjective Remarks Pt evaluated earlier today pain controlled. states that an area of her incision is opening up. denies any CP/SOB/N/V Objective Vitals Vital Signs Date Time Temp Pulse Resp B/P (MAP) Pulse Ox O2 Delivery O2 Flow Rate FiO2 06/09/17 07:07 Room Air 06/09/17 04:00 97.9 60 20 152/78 (102) 96 06/09/17 04:00 Room Air 06/09/17 00:00 97.5 61 18 169/77 (107) 94 06/09/17 00:00 Room Air 06/08/17 20:00 Room Air 06/08/17 20:00 Room Air 06/08/17 20:00 98.5 64 18 157/67 (97) 94 06/08/17 16:00 Room Air 06/08/17 16:00 98.8 64 20 157/80 (105) 96 I/O 06/08/17 06/08/17 06/08/17 06/09/17 06/09/17 06/09/17 07:00 15:00 23:00 07:00 15:00 23:00 Intake Total 857 ml 2503 ml 880 ml 300 ml Output Total 400 ml Balance 457 ml 2503 ml 880 ml 300 ml Intake Oral 480 ml 480 ml IV Total 857 ml 2023 ml 400 ml 300 ml Output Urine Total 400 ml # Voids 3 # Bowel Movements 1 Result Diagram: 06/06/17 0826 06/06/17 0826 Imaging Last Impressions Liver Ultrasound 05/30/17 0000 Signed Impressions: Service Date/Time: May 10:43 - CONCLUSION: 1. Multiple stones in the gallbladder. No definite biliary tract obstruction at this time. 2. The liver is mildly prominent in size. Tom Archer MD Femur X-Ray 05/30/17 0000 Signed Impressions: Service Date/Time: May 08:53 - CONCLUSION: Unremarkable examination of the left femur. Anders Pena MD Abdomen/Pelvis CT 05/30/17 0000 Signed Impressions: Service Date/Time: May 14:49 - CONCLUSION: 1. There is scattered fatty infiltration throughout the liver. 2. Gallstones in the gallbladder. No biliary tract obstruction. 3. Otherwise, unremarkable examination. Tom Archer MD Objective Remarks GENERAL: This is a well-nourished, well-developed patient, laying in bed CARDIOVASCULAR: Regular rate and regular rhythm without murmurs RESPIRATORY: Clear to auscultation. Breath sounds equal bilaterally. No wheezes GASTROINTESTINAL: Abdomen soft, non-tender, nondistended. MUSCULOSKELETAL: left thigh covered wound vac in place. small opened area where incision/stitches were. no bleeding, no erythema or signs of infection. NEURO: Alert & Oriented. Moves all ext x4 Procedures I/D of the left thigh abscess with wound vac placement. remove and replace VAC dressing. Partial closure of inferior/ medial L thigh wound, 10 cm single layer. I/D and wound vac change on 06/05/17. A/P Problem List: (1) Severe sepsis ICD Code: A41.9 - Sepsis, unspecified organism; R65.20 - Severe sepsis without septic shock Status: Acute (2) Cellulitis and abscess of leg ICD Code: L03.119 - Cellulitis of unspecified part of limb; L02.419 - Cutaneous abscess of limb, unspecified Status: Acute Assessment and Plan - severe sepsis due to cellulitis/abscess of the left thigh- s/p I/D and wound vac placement/ remove and replace VAC dressing and Partial closure of inferior/ medial L thigh wound, 10 cm single layer. continue with IV antibiotics per ID; Ampicillin and Clindamycin - continue pain control- blood cultures negative and wound culture growing group A strep wound vac was changed on 06/07/17; management per surgery. Per their notes, removal of wound vac scheduled for saturday Small opened area at the site of the stitches (I have cleaned area w saline water and pat dry and apply 3 small steri strips to keep wound for opening more) . GS to evaluate when they round. -elevated LFT's- improving- abdominal sonogram with cholelithiasis with no biliary obstruction-hepatitis panel negative. GI follow-up appreciated and has sign off- f/u as outpatient. -hyponatremia; resolved. -hypokalemia;resolved. -DVT prophylaxis with Lovenox when ok with surgery. Discharge Planning wound vac removal scheduled for saturday pt tells me that she is homeless. consult CM for d/c planning Leonela Spear MD Jun 09, 2017 13:50
[2017-06-09] MEDS ORDERED: ENALAPRILAT 1.25 MG/ML VIAL IV PUSH PRN (14:00)
[2017-06-09 14:04] VITALS: PULSE 66
[2017-06-09 16:12] VITALS: BP 151/72; PULSE 69; RESP 20; TEMP 98.7; O2SAT 95
[2017-06-09 20:00] VITALS: BP 151/74; PULSE 67; PULSE 72; RESP 18; TEMP 98; O2SAT 95
[2017-06-10] VITALS (10 sets, daily range): BP systolic 136–160; BP diastolic 70–95; PULSE 70–144; RESP 18–20; TEMP 97.7–98.9; O2SAT 93–96
[2017-06-10] MEDS: AMPICILLIN 2 GM/NS 100 ML IV SCH ×12 (01:30→21:56)
[2017-06-10] MEDS: ACETAMINOPHEN/HYDROcodone 325 MG/5 MG TAB PO PRN ×6 (01:30→21:56)
[2017-06-10] MEDS: HYDROmorphone HCL PF 1 MG/ML VIAL IV PUSH PRN ×5 (03:26→20:23)
[2017-06-10] MEDS: CLINDAMYCIN INJ 900 MG in SODIUM CHLORIDE 0.9% INJ 100 ML IV SCH ×3 (03:27→20:22)
--- NOTE | 2017-06-10 08:10 | MP ---
cc: REVA SAXENA M.D. DATE OF SURGERY 06/05/2017 PROCEDURE Irrigation and debridement of left groin wound with VAC change. PREOPERATIVE DIAGNOSIS Left groin abscess. POSTOPERATIVE DIAGNOSIS Left groin abscess. ANESTHESIA LMA. SURGEON MD Geovani FLUIDS Less than 10 mL. COMPLICATIONS None. DRAINS None. SPECIMEN None. PROCEDURE IN DETAIL The patient was marked in the holding area and taken to the operating room. She was placed on the operating table in the supine position. After an adequate level of laryngeal mask anesthesia was instituted, the left groin had dressings removed and the wound was prepped and draped. Time-out was taken confirming the correct patient site and procedure to be performed. The skin and subcutaneous tissue was irrigated and small bleeding points were controlled with electrocautery. There was no necrotic tissue remaining. One of the previously placed vertical mattress sutures was removed to allow the skin to flatten out. A small VAC sponge was then cut to size and reapplied. The VAC dressing was then reapplied as well. The vacuum dressing was seen to be intact with no leaks. The patient was extubated and taken back to the recovery room in stable condition. She tolerated the procedure well. MD NILSON Reyes/RICARDO /7:31 PM /8:04 AM [id number]
--- NOTE | 2017-06-10 13:55 | HHI.PR ---
Subjective Subjective Notes Resting in bed Ready to have Wound Vac removed Objective Vitals/I&O Vital Signs Date Time Temp Pulse Resp B/P (MAP) Pulse Ox O2 Delivery O2 Flow Rate FiO2 06/10/17 09:57 93 21 06/10/17 08:08 Room Air 06/10/17 08:00 98.3 82 20 158/85 (109) 06/06/17 20:00 2.00 Labs Date/Time Source Procedure Growth Status 05/30/17 08:30 Blood Peripheral Aerobic Blood Culture - Final NO GROWTH IN 5 DAYS Complete 05/30/17 08:30 Blood Peripheral Anaerobic Blood Culture - Final NO GROWTH IN 5 DAYS Complete 05/30/17 10:06 Wound Drainage Gram Stain - Final Complete 05/30/17 10:06 Wound Culture - Final Group A Beta Strep Complete Radiology Last 48 hours Impressions Liver Ultrasound 05/30/17 0000 Signed Impressions: Service Date/Time: May 10:43 - CONCLUSION: 1. Multiple stones in the gallbladder. No definite biliary tract obstruction at this time. 2. The liver is mildly prominent in size. Tom Archer MD Femur X-Ray 05/30/17 0000 Signed Impressions: Service Date/Time: May 08:53 - CONCLUSION: Unremarkable examination of the left femur. Anders Pena MD Abdomen/Pelvis CT 05/30/17 0000 Signed Impressions: Service Date/Time: May 14:49 - CONCLUSION: 1. There is scattered fatty infiltration throughout the liver. 2. Gallstones in the gallbladder. No biliary tract obstruction. 3. Otherwise, unremarkable examination. Tom Archer MD Cardiovascular: Regular Lungs: Clear Abdomen: Non-distended, Non-tender Extremities: Other (see below ) Narrative Exam LEFT groin Wound Vac in place; removed; wound bed clean without drainage; sponge replaced place wet to dry dressing; suture removed A/P Problem List: (1) Hypokalemia ICD Codes: E87.6 - Hypokalemia Status: Acute (2) Alcohol intoxication ICD Codes: F10.929 - Alcohol use, unspecified with intoxication, unspecified Status: Acute (3) Impetigo ICD Codes: L01.00 - Impetigo, unspecified Status: Acute (4) Transaminitis ICD Codes: R74.0 - Nonspecific elevation of levels of transaminase and lactic acid dehydrogenase [LDH]; L02.419 - Cutaneous abscess of limb, unspecified Status: Acute (5) Cellulitis and abscess of leg ICD Codes: L03.119 - Cellulitis of unspecified part of limb; L02.419 - Cutaneous abscess of limb, unspecified Status: Acute (6) Severe sepsis ICD Codes: A41.9 - Sepsis, unspecified organism; R65.20 - Severe sepsis without septic shock Status: Acute Assessment and Plan 46 year old female with LEFT thigh wound s/p I&D and Wound Vac change -Regular diet -Pain control -Transitioned to wet to dry dressings - consult for placement Attending Note - Dr. Olivo Wound is clean VAC will not accelerate healing at this point OK for wet to dry dressing changes once a day The exam, history, and the medical decision-making described in the above note were completed with the assistance of the mid-level provider. I reviewed and agree with the findings presented. I attest that I had a [id number] encounter with the patient on the same day, and personally performed and documented my assessment and findings in the medical record. Radha Pena Jun 10, 2017 13:55 Tato Olivo MD Jun 24, 2017 17:21
--- NOTE | 2017-06-10 15:41 | HHI.PR ---
Subjective Remarks has some pain from having the wound vac removed but tolerable. denies any CP/SOB /N/V hoping to be discharged on saturday if cleared by GS Objective Vitals Vital Signs Date Time Temp Pulse Resp B/P (MAP) Pulse Ox O2 Delivery O2 Flow Rate FiO2 06/10/17 09:57 93 21 06/10/17 08:08 Room Air 06/10/17 08:00 98.3 82 20 158/85 (109) 96 06/10/17 04:00 98.9 78 18 152/78 (102) 95 06/10/17 04:00 Room Air 06/10/17 00:00 Room Air 06/10/17 00:00 98.4 73 18 148/70 (96) 95 06/09/17 20:00 98.0 72 18 151/74 (99) 95 06/09/17 20:00 Room Air 06/09/17 20:00 67 06/09/17 16:12 98.7 69 20 151/72 (98) 95 I/O 06/09/17 06/09/17 06/09/17 06/10/17 06/10/17 06/10/17 07:00 15:00 23:00 07:00 15:00 23:00 Intake Total 300 ml 2020 ml 888 ml Balance 300 ml 2020 ml 888 ml Intake Oral 720 ml 480 ml IV Total 300 ml 1300 ml 408 ml # Voids 4 3 # Bowel Movements 0 Result Diagram: 06/06/1782506/06/17 0826 Imaging Last Impressions Liver Ultrasound 05/30/17 0000 Signed Impressions: Service Date/Time: May 10:43 - CONCLUSION: 1. Multiple stones in the gallbladder. No definite biliary tract obstruction at this time. 2. The liver is mildly prominent in size. Tom Archer MD Femur X-Ray 05/30/17 0000 Signed Impressions: Service Date/Time: May 08:53 - CONCLUSION: Unremarkable examination of the left femur. Anders Pena MD Abdomen/Pelvis CT 05/30/17 0000 Signed Impressions: Service Date/Time: May 14:49 - CONCLUSION: 1. There is scattered fatty infiltration throughout the liver. 2. Gallstones in the gallbladder. No biliary tract obstruction. 3. Otherwise, unremarkable examination. Tom Archer MD Objective Remarks GENERAL: This is a well-nourished, well-developed patient, standing up by the bed CARDIOVASCULAR: Regular rate and regular rhythm without murmurs RESPIRATORY: Clear to auscultation. Breath sounds equal bilaterally. No wheezes GASTROINTESTINAL: Abdomen soft, non-tender, nondistended. MUSCULOSKELETAL: left thigh covered w dressing d/c/i NEURO: Alert & Oriented. Moves all ext x4 Procedures I/D of the left thigh abscess with wound vac placement. remove and replace VAC dressing. Partial closure of inferior/ medial L thigh wound, 10 cm single layer. I/D and wound vac change on 06/05/17. A/P Problem List: (1) Severe sepsis ICD Code: A41.9 - Sepsis, unspecified organism; R65.20 - Severe sepsis without septic shock Status: Acute (2) Cellulitis and abscess of leg ICD Code: L03.119 - Cellulitis of unspecified part of limb; L02.419 - Cutaneous abscess of limb, unspecified Status: Acute Assessment and Plan - severe sepsis due to cellulitis/abscess of the left thigh- s/p I/D and wound vac placement/ remove and replace VAC dressing and Partial closure of inferior/ medial L thigh wound, 10 cm single layer. continue with IV antibiotics per ID; Ampicillin and Clindamycin - continue pain control- blood cultures negative and wound culture growing group A strep wound vac removed 06/10/17; management per surgery. -elevated LFT's- improving- abdominal sonogram with cholelithiasis with no biliary obstruction-hepatitis panel negative. GI follow-up appreciated and has sign off- f/u as outpatient. -hyponatremia; resolved. -hypokalemia;resolved. -DVT prophylaxis with Lovenox when ok with surgery. encourage ambulation as tolerated Discharge Planning pt tells me that she is homeless. CM assisting w d/c planning Leonela Spear MD Jun 10, 2017 15:41
[2017-06-10] MEDS ORDERED: ENOXAPARIN SODIUM 40 MG/0.4 ML SYRINGE SQ SCH (17:00)
[2017-06-11] VITALS: BP 157/79; PULSE 100; RESP 20; TEMP 97.9; O2SAT 96
[2017-06-11] MEDS: HYDROmorphone HCL PF 1 MG/ML VIAL IV PUSH PRN ×3 (00:22→08:48)
[2017-06-11] MEDS: AMPICILLIN 2 GM/NS 100 ML IV SCH ×6 (02:25→10:59)
[2017-06-11] MEDS: ACETAMINOPHEN/HYDROcodone 325 MG/5 MG TAB PO PRN ×3 (02:25→11:03)
[2017-06-11] MEDS: CLINDAMYCIN INJ 900 MG in SODIUM CHLORIDE 0.9% INJ 100 ML IV SCH ×2 (03:35→12:01)
[2017-06-11 05:00] VITALS: BP 143/78; PULSE 76; RESP 18; TEMP 98.2; O2SAT 95
[2017-06-11 08:00] VITALS: BP 145/70; PULSE 80; RESP 20; TEMP 98.1; O2SAT 96
--- NOTE | 2017-06-11 11:21 | HHI.PR ---
Subjective Subjective Notes Doing dressing change Just showered Objective Vitals/I&O Vital Signs Date Time Temp Pulse Resp B/P (MAP) Pulse Ox O2 Delivery O2 Flow Rate FiO2 06/11/17 08:00 Room Air 06/11/17 08:00 98.1 80 20 145/70 (95) 96 06/10/17 09:57 21 Labs Date/Time Source Procedure Growth Status 05/30/17 08:30 Blood Peripheral Aerobic Blood Culture - Final NO GROWTH IN 5 DAYS Complete 05/30/17 08:30 Blood Peripheral Anaerobic Blood Culture - Final NO GROWTH IN 5 DAYS Complete 05/30/17 10:06 Wound Drainage Gram Stain - Final Complete 05/30/17 10:06 Wound Culture - Final Group A Beta Strep Complete Radiology Last 48 hours Impressions Liver Ultrasound 05/30/17 0000 Signed Impressions: Service Date/Time: May 10:43 - CONCLUSION: 1. Multiple stones in the gallbladder. No definite biliary tract obstruction at this time. 2. The liver is mildly prominent in size. Tom Archer MD Femur X-Ray 05/30/17 0000 Signed Impressions: Service Date/Time: May 08:53 - CONCLUSION: Unremarkable examination of the left femur. Anders Pena MD Abdomen/Pelvis CT 05/30/17 0000 Signed Impressions: Service Date/Time: May 14:49 - CONCLUSION: 1. There is scattered fatty infiltration throughout the liver. 2. Gallstones in the gallbladder. No biliary tract obstruction. 3. Otherwise, unremarkable examination. Tom Archer MD Cardiovascular: Regular Lungs: Clear Abdomen: Non-distended, Non-tender Extremities: Other (see below ) Narrative Exam LEFT groin wound bed clean without drainage; place wet to dry dressing; A/P Problem List: (1) Hypokalemia ICD Codes: E87.6 - Hypokalemia Status: Acute (2) Alcohol intoxication ICD Codes: F10.929 - Alcohol use, unspecified with intoxication, unspecified Status: Acute (3) Impetigo ICD Codes: L01.00 - Impetigo, unspecified Status: Acute (4) Transaminitis ICD Codes: R74.0 - Nonspecific elevation of levels of transaminase and lactic acid dehydrogenase [LDH]; L02.419 - Cutaneous abscess of limb, unspecified Status: Acute (5) Cellulitis and abscess of leg ICD Codes: L03.119 - Cellulitis of unspecified part of limb; L02.419 - Cutaneous abscess of limb, unspecified Status: Acute (6) Severe sepsis ICD Codes: A41.9 - Sepsis, unspecified organism; R65.20 - Severe sepsis without septic shock Status: Acute Assessment and Plan 46 year old female with LEFT thigh wound s/p I&D and Wound Vac change -Regular diet -Pain control -Transitioned to wet to dry dressings ---patient has demonstrated she is able to do dressing bocanegra e -Appreciate case management---they have arranged for Ms. Armando to get dressing change at the [facility] each morning Attending Note - Dr. Olivo wound is clean; ready for discharge The exam, history, and the medical decision-making described in the above note were completed with the assistance of the mid-level provider. I reviewed and agree with the findings presented. I attest that I had a [id number] encounter with the patient on the same day, and personally performed and documented my assessment and findings in the medical record. Radha Pena Jun 11, 2017 11:21 Tato Olivo MD Jun 24, 2017 17:23
[2017-06-11 11:35] VITALS: O2SAT 96
[2017-06-11 12:00] VITALS: BP 145/66; PULSE 72; RESP 20; TEMP 98.5; O2SAT 95
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
[2017-06-11] MEDS ORDERED: HYDR-3516 PO (13:52)
[2017-06-11] MEDS ORDERED: AMLO10 PO (13:52)
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
[2017-06-27] MEDS ORDERED: BACT800T5 PO (15:41)
[2017-06-27] MEDS ORDERED: AMOX500C PO (15:51)
== END 2017-06-11 14:58 | disposition home or self-care (01) | DRG 854 ==
LOC: NEPE 07:56 → NEDA 09:58 → N04B 18:46
PROVIDERS: ADMIT Hospitalist; ATTEND Hospitalist
PROC: 0Y960ZZ Drainage of Left Inguinal Region, Open Approach (ICD-10-PCS; 2017-05-30)
PROC: 0JBM0ZZ Excision of Left Upper Leg Subcutaneous Tissue and Fascia, Open Approach (ICD-10-PCS; principal; 2017-05-30 16:05)
PROC: 2W0PX6Z Change Pressure Dressing on Left Upper Leg (ICD-10-PCS; 2017-06-02)
PROC: 0Y960ZZ Drainage of Left Inguinal Region, Open Approach (ICD-10-PCS; 2017-06-05)
DX: A41.9 Sepsis, unspecified organism (principal); L02.214 Cutaneous abscess of groin; E87.1 Hypo-osmolality and hyponatremia; K76.0 Fatty (change of) liver, not elsewhere classified; L03.314 Cellulitis of groin; R65.20 Severe sepsis without septic shock; Z59.0 Homelessness; F17.210 Nicotine dependence, cigarettes, uncomplicated; F12.10 Cannabis abuse, uncomplicated; E87.6 Hypokalemia; L01.00 Impetigo, unspecified; F10.10 Alcohol abuse, uncomplicated
CPT/HCPCS: 10060; 73552; 74177; 76705; 76937; 80053; 80074; 80202; 80307; 82103; 82105; 82390; 82728; 83520; 83540; 83550; 83605; 83690; 83735; 84703; 85007; 85025; 85027; 85610; 86038; 86255; 87040; 87070; 87205; 87522; 96365; 96375; J0290; J0690; J1170; J1650; J2250; J2405; J2543; J3010; J3370; J7030; J7040; J7050; Q9963; Q9967

== ENCOUNTER 2018-01-12 12:46 | Emergency (ER) | payer OTHER ==
[~2018-01-12] VITALS: Ht 160 cm; Wt 58.0 kg
[~2018-01-12 12:46] MED LIST changes: +AMLO10 PO; +AMOX500C PO; -AUGM875T PO; -MUPI2%T TOPICAL; -PERC5TAB12 PO
[2018-01-12 13:08] VITALS: BP 112/55; PULSE 78; RESP 18; TEMP 98; O2SAT 99
[2018-01-12] MEDS ORDERED: ACETAMINOPHEN/HYDROcodone 325 MG/5 MG TAB PO ONE (16:15)
[2018-01-12] MEDS ORDERED: CLINDAMYCIN 600 MG/NS PREMIX 50 ML IV ONE (16:15)
--- NOTE | 2018-01-12 16:35 | PD ---
HPI Chief Complaint: Skin Problem Time Seen by Provider: 15:54 Travel History International Travel<30 days: No Contact w/Intl Traveler<30days: No Traveled to known affect area: No History of Present Illness HPI Patient is a 47-year-old female who comes in complaining of pain and swelling to her right hand. 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 She denies fever chills. She is not taking anything for the pain. She is worried about infection. Severity is mild to moderate. PFSH Past Medical History Cancer: No Cardiovascular Problems: No Diminished Hearing: No Endocrine: No Gastrointestinal Disorders: No Genitourinary: No Implanted Vascular Access Dvce: Yes Musculoskeletal: No Neurologic: No Psychiatric: No Reproductive: No Respiratory: No Immunizations Current: Yes Influenza Vaccination: No ?: Not LMP: 01/12/18 Past Surgical History Body Medical Devices: rods and pin in bilateral arms Pacemaker: No Social History Alcohol Use: Yes ( A WEEK AGO) Tobacco Use: Yes (1/2 - 1 PACK A DAY) Substance Use: Yes (marijuana, ) Allergies-Medications (Allergen,Severity, Reaction): Coded Allergies: No Known Allergies (Verified , 06/27/17) Reported Meds & Prescriptions Reported Meds & Active Scripts Active Amoxicillin 500 Mg Cap 500 Mg PO TID Bactrim DS (Sulfamethoxazole-Trimethoprim) 800-160 Mg Tab 1 Tab PO BID Norvasc (Amlodipine Besylate) 10 Mg Tab 10 Mg PO DAILY 30 Days Review of Systems Except as stated in HPI: all other systems reviewed are Neg General / Constitutional: No: Fever, Chills HENT: No: Headaches, Lightheadedness Cardiovascular: No: Chest Pain or Discomfort Respiratory: No: Shortness of Breath Gastrointestinal: No: Nausea, Vomiting Skin: Positive Lesions Neurologic: No: Weakness, Dizziness Physical Exam Narrative GENERAL: Awake and alert, in no acute distress. SKIN: Focused skin assessment warm/dry. Scabs to the right forearm, no surrounding erythema or warmth. 2 cm area of fluctuance over the right first PIP, very superficial. Mild surrounding erythema and warmth. HEAD: Atraumatic. Normocephalic. EYES: Pupils equal and round. No scleral icterus. No injection or drainage. ENT: No nasal bleeding or discharge. Mucous membranes pink and moist. NECK: Trachea midline. No JVD. CARDIOVASCULAR: Regular rate and rhythm. No murmur appreciated. RESPIRATORY: No accessory muscle use. Clear to auscultation. Breath sounds equal bilaterally. GASTROINTESTINAL: Abdomen soft, non-tender, nondistended. MUSCULOSKELETAL: No obvious deformities. No clubbing. No cyanosis. No edema. NEUROLOGICAL: Awake and alert. No obvious cranial nerve deficits. Motor grossly within normal limits. Normal speech. PSYCHIATRIC: Appropriate mood and affect; insight and judgment normal. Data Data Last Documented VS Vital Signs Date Time Temp Pulse Resp B/P (MAP) Pulse Ox O2 Delivery O2 Flow Rate FiO2 01/12/18 13:08 98.0 78 18 112/55 (74) 99 Orders Orders Iv Access Insert/Monitor (01/12/18 16:01) Complete Blood Count With Diff (01/12/18 16:01) Comprehensive Metabolic Panel (01/12/18 16:01) Clindamycin 600 Mg/Ns Premix (Cleocin 60 (01/12/18 16:15) Acetamin-Hydrocod 325-5 Mg ([place] 5-325 (01/12/18 16:15) Labs Laboratory Tests Test 01/12/18 16:20 White Blood Count 13.4 TH/MM3 Red Blood Count 4.59 MIL/MM3 Hemoglobin 14.9 GM/DL Hematocrit 43.9 % Mean Corpuscular Volume 95.6 FL Mean Corpuscular Hemoglobin 32.5 PG Mean Corpuscular Hemoglobin Concent 34.0 % Red Cell Distribution Width 14.6 % Platelet Count 334 TH/MM3 Mean Platelet Volume 7.2 FL Neutrophils (%) (Auto) 83.4 % Lymphocytes (%) (Auto) 9.8 % Monocytes (%) (Auto) 5.8 % Eosinophils (%) (Auto) 0.5 % Basophils (%) (Auto) 0.5 % Neutrophils # (Auto) 11.2 TH/MM3 Lymphocytes # (Auto) 1.3 TH/MM3 Monocytes # (Auto) 0.8 TH/MM3 Eosinophils # (Auto) 0.1 TH/MM3 Basophils # (Auto) 0.1 TH/MM3 CBC Comment DIFF FINAL Differential Comment MDM Medical Decision Making Medical Screen Exam Complete: Yes Emergency Medical Condition: Yes Medical Record Reviewed: Yes Differential Diagnosis Cellulitis versus abscess versus blister Narrative Course Patient is a 47-year-old female who comes in complaining of pain and swelling to her right hand. Exam shows a very superficial abscess to the right first PIP. IV established, labs sent. Patient given a dose of clindamycin as well as pain medicine. Abscess was lanced with small amount of pus expressed. Labs show white blood cell count of 13.4. AST and ALT are elevated, but this is similar to previous. She will be discharged with prescriptions for Keflex and Bactrim. Advised to keep a close eye on the area and return anytime for any worsening symptoms. Procedures Procedure Narrative INCISION AND DRAINAGE OF ABSCESS: The area was prepped and was sterilely draped. Topical numbing spray was used to anesthetize the area. A number 11 scalpel was used to make a 1 -cm incision across the area of the abscess. The abscess was drained, complex loculations were broken down, and irrigated with normal saline. Sterile dressing applied. Diagnosis Primary Impression: Cellulitis and abscess of hand Patient Instructions: Cellulitis (ED), General Instructions Additional Instructions: Take all of your antibiotics. Return at any time if the redness or swelling seems to be spreading or any symptoms are worsening. Scripts Cephalexin (Keflex) 500 Mg Capsule 500 MG PO Q6H for Infection for 7 Days, #28 CAP 0 Refills Prov: Dinorah Valadez MD 01/12/18 Sulfamethoxazole-Trimethoprim (Bactrim DS) 800-160 Mg Tab 1 TAB PO BID for Infection, #14 TAB 0 Refills Prov: Dinorah Valadez MD 01/12/18 Disposition: 01 DISCHARGE HOME Condition: Stable Dinorah Valadez MD Jan 12, 2018 16:35
[2018-01-12 16:47] LABS: AUTOMATED NEUTROPHIL # 11.2 TH/MM3 (1.8-7.7); BASOPHIL # 0.1 TH/MM3 (0-0.2); BASOPHIL % 0.5 % (0.0-2.0); EOSINOPHIL # 0.1 TH/MM3 (0-0.4); EOSINOPHIL % 0.5 % (0.0-4.0); HEMATOCRIT 43.9 % (35.0-46.0); HEMOGLOBIN 14.9 GM/DL (11.6-15.3); LYMPH % 9.8 % (9.0-44.0); LYMPHOCYTE # 1.3 TH/MM3 (1.0-4.8); MEAN CELL VOLUME 95.6 FL (80.0-100.0); MEAN CORPUSCULAR HEMOGLOBIN 32.5 PG (27.0-34.0); MEAN PLATELET VOLUME 7.2 FL (7.0-11.0); MONO % 5.8 % (0.0-8.0); MONOCYTE # 0.8 TH/MM3 (0-0.9); NEUT % 83.4 % (16.0-70.0); PLATELET COUNT 334 TH/MM3 (150-450); RED BLOOD COUNT 4.59 MIL/MM3 (4.00-5.30); RED CELL DISTRIBUTION WIDTH 14.6 % (11.6-17.2); WHITE BLOOD COUNT 13.4 TH/MM3 (4.0-11.0)
[2018-01-12] MEDS ORDERED: BACT800T5 PO (16:55)
[2018-01-12] MEDS ORDERED: CEPH-460 PO (16:55)
[2018-01-12 17:06] LABS: ALBUMIN 3.2 GM/DL (3.4-5.0); AST (GOT) 18 U/L (15-37); BICARBONATE 22.2 MEQ/L (21.0-32.0); BLOOD UREA NITROGEN 8 MG/DL (7-18); CALCIUM 8.4 MG/DL (8.5-10.1); CHLORIDE 105 MEQ/L (98-107); CREATININE 0.85 MG/DL (0.50-1.00); GLOMERULAR FILTRATION RATE 71 ML/MIN (>89); GLUCOSE,RANDOM 143 MG/DL (74-106); SODIUM (NA) 140 MEQ/L (136-145)
[2018-01-12 17:09] LABS: ALKALINE PHOSPHATASE 48 U/L (45-117); ALT (GPT) 13 U/L (10-53); TOTAL BILIRUBIN ADULT 0.5 MG/DL (0.2-1.0); TOTAL PROTEIN 7.1 GM/DL (6.4-8.2)
== END 2018-01-12 18:33 | disposition home or self-care (01) ==
LOC: NEPD 12:46
DX: L03.113 Cellulitis of right upper limb (principal); L02.511 Cutaneous abscess of right hand; F17.200 Nicotine dependence, unspecified, uncomplicated
CPT/HCPCS: 10060; 80053; 85025; 96374

== ENCOUNTER 2018-03-28 18:06 | Emergency (ER) | payer OTHER ==
[~2018-03-28] VITALS: Ht 160 cm; Wt 60.0 kg
[~2018-03-28 18:06] MED LIST changes: +CEPH-460 PO
[2018-03-28 18:09] VITALS: BP 172/90; PULSE 102; RESP 16; TEMP 98; O2SAT 98
[2018-03-28] MEDS ORDERED: BACT800T5 PO (19:24)
--- NOTE | 2018-03-28 19:28 | PD ---
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 She states that she gets stung by insects repetitively as well as bumping her skin. She has had a history of a skin infection in the past. He has developed multiple open sores over the past week. Symptoms are moderate. No fever chills. She denies any drugs. No fever chills. Pain is mild. PFSH Past Medical History Narrative Medical Skin infection Cancer: No Cardiovascular Problems: No Diminished Hearing: No Endocrine: No Gastrointestinal Disorders: No Genitourinary: No Implanted Vascular Access Dvce: Yes Musculoskeletal: No Neurologic: No Psychiatric: No Reproductive: No Respiratory: No Immunizations Current: Yes ?: Not Past Surgical History Body Medical Devices: rods and pin in bilateral arms Pacemaker: No Social History Alcohol Use: Yes ( A WEEK AGO) Tobacco Use: Yes (1/2 - 1 PACK A DAY) Substance Use: Yes (marijuana, ) Allergies-Medications (Allergen,Severity, Reaction): Coded Allergies: No Known Allergies (Verified Adverse Reaction, Unknown, 03/28/18) Reported Meds & Prescriptions Reported Meds & Active Scripts Active Bactrim DS (Sulfamethoxazole-Trimethoprim) 800-160 Mg Tab 1 Tab PO BID Review of Systems Except as stated in HPI: all other systems reviewed are Neg Physical Exam Narrative GENERAL: This is a well-nourished, well-developed patient, in no apparent distress. SKIN: Patient has multiple superficial skin infections with crusting and discharge on the exposed extremities. There is no deep abscess. No fluctuance or pointing. Ecchymoses or lesions. Warm and dry. HEAD: Atraumatic. Normocephalic. EYES: PERRL, EOMI, no discharge or injection. No scleral icterus. EARS: Clear NOSE: Nasal turbinates appear normal. THROAT: Mucosa pink and moist. Airway patent. NECK: Trachea midline. supple, moves head freely. LUNGS: Clear to auscultation. CV: Regular in rhythm. ABDOMEN: Soft nontender. EXT: No clubbing cyanosis or edema. Data Data Last Documented VS Vital Signs Date Time Temp Pulse Resp B/P (MAP) Pulse Ox O2 Delivery O2 Flow Rate FiO2 03/28/18 18:09 98.0 102 16 172/90 (117) 98 Orders Orders Sulfameth-Trimeth 400-80 Mg (Bactrim 400 (03/28/18 19:30) Ed Discharge Order (03/28/18 19:25) MDM Medical Decision Making Medical Screen Exam Complete: Yes Emergency Medical Condition: Yes Medical Record Reviewed: Yes Differential Diagnosis MDM: High Differential diagnoses: Abscess, folliculitis, cellulitis, lymphangitis, abrasion, contact dermatitis Narrative Course Patient given Bactrim DS p.o. Patient has multiple superficial skin infections. This is impetigo Diagnosis Primary Impression: Impetigo Patient Instructions: General Instructions Additional Instructions: Rest. Elevation. keep clean and dry. Daily wound care with soap, water and Neosporin. Three Advil every 6 hours. Bactrim DS Follow-up with a primary care doctor in one week. Return to the ER for any problems. Med/Other Pt SpecificInfo: Prescription(s) given Scripts Sulfamethoxazole-Trimethoprim (Bactrim DS) 800-160 Mg Tab 1 TAB PO BID for Infection, #20 TAB 0 Refills Prov: Wesley Romero MD 03/28/18 Disposition: 01 DISCHARGE HOME Condition: Stable Chandan Ledesma Mar 28, 2018 19:28
[2018-03-28] MEDS ORDERED: SULFAMETHOXAZOLE-TRIMETHOPRIM 400-80 MG TAB PO ONE (19:30)
== END 2018-03-28 19:49 | disposition home or self-care (01) ==
LOC: NEPD 18:06
DX: L01.00 Impetigo, unspecified (principal); F12.90 Cannabis use, unspecified, uncomplicated; F17.200 Nicotine dependence, unspecified, uncomplicated
CPT/HCPCS: 99283

== ENCOUNTER 2018-10-01 05:16 | Observation (INO) ==
--- NOTE | 2018-10-01 05:41 | ED ---
HPI General Chief complaint: Medical Clearance Stated complaint: Not feeling well Time Seen by Provider: 10/01/18 05:22 History of Present Illness HPI narrative: 47 Y WF, homeless, 1/2 PPD smoker presents to the ED for shortness of difficulty, feeling like "she can't breathe." She has had a cold for the past 2 weeks and the SOB has worsened in that time period. She has had chills and cough, productive with green phlegm. Denies fever and chest pain, although admits to some chest pressure/tightness with no radiation to the jaw or arm. She feels fatigued. Related Data Home Medications Medication Instructions Recorded Confirmed No Known Home Medications 10/01/18 10/01/18 Allergies Allergy/AdvReac Type Severity Reaction Status Date / Time No Known Allergies Allergy Mild Weakness Uncoded 10/01/18 05:28 Review of Systems Constitutional Reports as per HPI, Reports chills and Reports fatigue Cardiovascular Reports as per HPI Respiratory Reports as per HPI, Reports change in phlegm color, Reports cough and Reports dyspnea PMFSH Medical History Medical History No significant medical problems (Acute) Surgical History Surgical History History of surgery on arm (Acute) Social History Social History Substance History: No History of Abuse and Past History Second Hand Smoke Exposure: No Smoking Status: Current every day smoker Tobacco Type: Cigarettes Packs Per Day: 0.5 Cigarettes Per Day: 10.0 How Often Do You Have a Drink Containing Alcohol: 4 or more times a week Recent Travel in [facility] within the Last 8 Weeks: No Recent Out of Country Travel within the Last 8 Weeks: No Immunization History Tetanus Immunization: <5 Years Exam Const General: cooperative Orientation: alert and awake HENMT Head: normal to inspection and normocephalic Mouth: oral mucosae normal, lip normal, tongue normal and oropharynx normal Resp Effort & Inspection: normal respiratory effort, able to speak in complete sentences and cough Auscultation: clear to auscultation bilaterally Cardio Rate: tachycardic Rhythm: regular rhythm Course Initial Documented Vital Signs Temperature 98.7 F 10/01/18 05:22 Pulse Rate 100 H 10/01/18 05:22 Respiratory Rate 20 10/01/18 05:22 Blood Pressure 170/97 H 10/01/18 05:22 Pulse Oximetry 100 10/01/18 05:22 Last Documented Vital Signs Temperature 98.7 F 10/01/18 05:22 Pulse Rate 105 H 10/01/18 07:30 Respiratory Rate 15 10/01/18 07:30 Blood Pressure 170/95 H 10/01/18 07:30 Pulse Oximetry 97 10/01/18 07:30 Sign Out Sign Out Data: Patient Sign Out occurred on 10/01/18 at 07:35. Patient's care was discussed, and care was transferred from Swati Whitten MD to Milagro Castillo MD. Sign Out Comment: The patient's case was checked out to the oncoming emergency physician at the conclusion of my shift. The patient is pending d-dimer, repeat lactic acid after a second liter of normal saline IV fluids, urinalysis results, and reexamination. Disposition is pending based on the conclusion of the patient's workup. Last updated by Swati Whitten MD at 10/01/18 06:57 Post-Handoff Eval: Signed over to me to follow d-dimer, urinalysis and admit. Urinalysis shows signs of infection and patient was already given Rocephin and azithromycin. Patient's d-dimer is normal. Will admit for sepsis, UTI and her glucose will need to be trended given she had a [address] colon agrees to observation Medical Decision Making MDM Narrative Medical decision making narrative: I, Dr. Whitten, have reviewed the medical student's documentation, and I am in agreement, met with the patient face to face, made the diagnosis, and the medical decision making was done by me. The patient was initially evaluated by MELY Freeman. Please see their complete history and physical. *My assessment and Findings: The patient presents with a reported history of cough, congestion that is been present for the last 2 weeks. She reports that over the last day she has become short of breath with a cough. The patient reports having a pressure in her chest when she tries to take a deep breath. Patient reportedly smokes a half a pack of cigarettes per day. The patient reports that the cough is productive of green sputum. She reports that earlier today she began to have nausea and is also started to have vomiting. The patient's examination is remarkable for a sinus tachycardia in the low 100s. Lungs are clear to auscultation bilaterally without wheezes or rhonchi. During the course of the patient's emergency department visit, the patient's history, examination, and differential diagnosis were reviewed with the patient. The patient was placed on a electronic device monitor with oximetry and frequent blood pressure monitoring. The patient had [-] IV access obtained and blood work sent for analysis. The patient was initially provided Zofran 4 mg IV, normal saline 1 L IV fluid bolus. The patient's diagnostic studies were reviewed and remarkable for a chest x-ray that shows no evidence of acute cardiopulmonary disease. Chemistry is remarkable for CO2 of 20.2, glucose 56, and Accu-Chek will be done to assess for the validity of this hypoglycemic result, Cardiac enzymes within normal limits, lipase 105, chest x-ray showed no evidence of acute cardiopulmonary disease. Magnesium is 1.7, lactic acid is elevated at 3.6. This could be related to dehydration, a second liter of normal saline IV fluids was administered, Rocephin 1 g IV was administered, Zithromax 500 mg IV was administered. D-dimer, repeat lactic acid, urinalysis is pending at the conclusion of my shift. The patient's case will be checked out to the oncoming emergency physician to disposition the patient based on the conclusion of her workup. The patient's blood sugar was confirmed to be 57. The patient is awake and alert. She will be provided orange juice and crackers. The patient will be provided a tray of food. The patient's blood sugar will be reassessed. Medical Screen Exam Complete: Yes Emergency Medical Condition: Yes Differential Diagnosis Differential Diagnosis: Pneumonia, versus bronchitis, versus pulmonary embolism , versus acute coronary syndrome Medical Records Medical records reviewed: Yes I reviewed the patient's medical records. Lab Data Lab results reviewed: Yes I reviewed the patient's lab results. Result diagrams: 10/01/18 05:53 10/01/18 05:53 POC Results POC Urine Results Negative Lab Results 10/01/18 10/01/18 10/01/18 Range/Units 05:53 05:53 05:53 WBC 11.2 H (4.0-11.0) th/mm3 RBC 4.04 (4.00-5.30) mil/mm3 Hgb 13.6 (11.6-15.3) gm/dL Hct 40.1 (35.0-46.0) % MCV 99.2 (80.0-100.0) fL MCH 33.7 (27.0-34.0) pg MCHC 33.9 (32.0-36.0) % RDW 17.9 H (11.6-17.2) % Plt Count 287 (150-450) th/mm3 MPV 6.7 L (7.0-11.0) fL Neut % (Auto) 86.8 H (16.0-70.0) % Lymph % (Auto) 7.2 L (9.0-44.0) % [place]erry % (Auto) 5.4 (0.0-8.0) % Eos % (Auto) 0.2 (0.0-4.0) % Baso % (Auto) 0.4 (0.0-2.0) % Neut # (Auto) 9.7 H (1.8-7.7) th/mm3 Lymph # (Auto) 0.8 L (1.0-4.8) th/mm3 [place] # (Auto) 0.6 (0.0-0.9) th/mm3 Eos # (Auto) 0.0 (0.0-0.4) th/mm3 Baso # (Auto) 0.0 (0.0-0.2) th/mm3 WBC Differential . Differential Comment Auto diff final D-Dimer Quant (PE/DVT) (0.00-0.50) mg/L FEU Sodium (136-145) meq/L Potassium (3.5-5.1) meq/L Chloride (98-107) meq/L Carbon Dioxide (21.0-32.0) meq/L Anion Gap (5-15) meq/L BUN (7-18) mg/dL Creatinine (0.50-1.00) mg/dL Estimated GFR (>89) mL/min POC Glucose (68-110) mg/dl Random Glucose (74-106) mg/dL Lactic Acid 3.6 H (0.4-2.0) mmol/L Calcium (8.5-10.1) mg/dL Magnesium (1.5-2.5) mg/dL Total Bilirubin (0.2-1.0) mg/dL AST (15-37) U/L ALT (10-53) U/L Alkaline Phosphatase (45-117) U/L Total Creatine Kinase (26-192) U/L CK-MB (CK-2) (0.5-3.6) ng/mL Troponin I (0.02-0.05) ng/mL Total Protein (6.4-8.2) g/dL Albumin (3.4-5.0) g/dL Lipase 105 (73-393) U/L Urine Color (Yellw/Straw) Urine Clarity (Clear) Urine pH (5.0-8.5) Ur Specific [place] (1.002-1.035) Urine Protein (Neg-Trace) mg/dL Urine Glucose (UA) (Negative) mg/dL Urine Ketones (Negative) mg/dL Urine Occult Blood (Negative) Urine Nitrate (Negative) Urine Bilirubin (Negative) Urine Urobilinogen (Less than 2) mg/dL Ur Leukocyte Esterase (Negative) Urine RBC (0-3) /hpf Urine WBC (0-5) /hpf Ur Squamous Epith Cells (0-5) /hpf Urine Bacteria (None) /hpf Micro UA Comment Ur Microscopic Review Urine Culture Comments 10/01/18 10/01/18 10/01/18 Range/Units 05:53 05:53 06:50 WBC (4.0-11.0) th/mm3 RBC (4.00-5.30) mil/mm3 Hgb (11.6-15.3) gm/dL Hct (35.0-46.0) % MCV (80.0-100.0) fL MCH (27.0-34.0) pg MCHC (32.0-36.0) % RDW (11.6-17.2) % Plt Count (150-450) th/mm3 MPV (7.0-11.0) fL Neut % (Auto) (16.0-70.0) % Lymph % (Auto) (9.0-44.0) % [place]erry % (Auto) (0.0-8.0) % Eos % (Auto) (0.0-4.0) % Baso % (Auto) (0.0-2.0) % Neut # (Auto) (1.8-7.7) th/mm3 Lymph # (Auto) (1.0-4.8) th/mm3 [place] # (Auto) (0.0-0.9) th/mm3 Eos # (Auto) (0.0-0.4) th/mm3 Baso # (Auto) (0.0-0.2) th/mm3 WBC Differential Differential Comment D-Dimer Quant (PE/DVT) 0.37 (0.00-0.50) mg/L FEU Sodium 140 (136-145) meq/L Potassium 3.5 (3.5-5.1) meq/L Chloride 105 (98-107) meq/L Carbon Dioxide 20.2 L (21.0-32.0) meq/L Anion Gap 15 (5-15) meq/L BUN 7 (7-18) mg/dL Creatinine 0.67 (0.50-1.00) mg/dL Estimated GFR Greater than 89 (>89) mL/min POC Glucose (68-110) mg/dl Random Glucose 56 L (74-106) mg/dL Lactic Acid (0.4-2.0) mmol/L Calcium 8.1 L (8.5-10.1) mg/dL Magnesium 1.7 (1.5-2.5) mg/dL Total Bilirubin 0.8 (0.2-1.0) mg/dL AST 41 H (15-37) U/L ALT 21 (10-53) U/L Alkaline Phosphatase 56 (45-117) U/L Total Creatine Kinase 187 (26-192) U/L CK-MB (CK-2) 9.3 H (0.5-3.6) ng/mL Troponin I Less than 0.02 L (0.02-0.05) ng/mL Total Protein 6.6 (6.4-8.2) g/dL Albumin 3.4 (3.4-5.0) g/dL Lipase (73-393) U/L Urine Color (Yellw/Straw) Urine Clarity (Clear) Urine pH (5.0-8.5) Ur Specific [place] (1.002-1.035) Urine Protein (Neg-Trace) mg/dL Urine Glucose (UA) (Negative) mg/dL Urine Ketones (Negative) mg/dL Urine Occult Blood (Negative) Urine Nitrate (Negative) Urine Bilirubin (Negative) Urine Urobilinogen (Less than 2) mg/dL Ur Leukocyte Esterase (Negative) Urine RBC (0-3) /hpf Urine WBC (0-5) /hpf Ur Squamous Epith Cells (0-5) /hpf Urine Bacteria (None) /hpf Micro UA Comment Ur Microscopic Review Urine Culture Comments 10/01/18 10/01/18 Range/Units 06:55 06:57 WBC (4.0-11.0) th/mm3 RBC (4.00-5.30) mil/mm3 Hgb (11.6-15.3) gm/dL Hct (35.0-46.0) % MCV (80.0-100.0) fL MCH (27.0-34.0) pg MCHC (32.0-36.0) % RDW (11.6-17.2) % Plt Count (150-450) th/mm3 MPV (7.0-11.0) fL Neut % (Auto) (16.0-70.0) % Lymph % (Auto) (9.0-44.0) % [place] % (Auto) (0.0-8.0) % Eos % (Auto) (0.0-4.0) % Baso % (Auto) (0.0-2.0) % Neut # (Auto) (1.8-7.7) th/mm3 Lymph # (Auto) (1.0-4.8) th/mm3 [place] # (Auto) (0.0-0.9) th/mm3 Eos # (Auto) (0.0-0.4) th/mm3 Baso # (Auto) (0.0-0.2) th/mm3 WBC Differential Differential Comment D-Dimer Quant (PE/DVT) (0.00-0.50) mg/L FEU Sodium (136-145) meq/L Potassium (3.5-5.1) meq/L Chloride (98-107) meq/L Carbon Dioxide (21.0-32.0) meq/L Anion Gap (5-15) meq/L BUN (7-18) mg/dL Creatinine (0.50-1.00) mg/dL Estimated GFR (>89) mL/min POC Glucose 57 L (68-110) mg/dl Random Glucose (74-106) mg/dL Lactic Acid (0.4-2.0) mmol/L Calcium (8.5-10.1) mg/dL Magnesium (1.5-2.5) mg/dL Total Bilirubin (0.2-1.0) mg/dL AST (15-37) U/L ALT (10-53) U/L Alkaline Phosphatase (45-117) U/L Total Creatine Kinase (26-192) U/L CK-MB (CK-2) (0.5-3.6) ng/mL Troponin I (0.02-0.05) ng/mL Total Protein (6.4-8.2) g/dL Albumin (3.4-5.0) g/dL Lipase (73-393) U/L Urine Color Yellow (Yellw/Straw) Urine Clarity Cloudy H (Clear) Urine pH 5.0 (5.0-8.5) Ur Specific [place] 1.020 (1.002-1.035) Urine Protein 30 H (Neg-Trace) mg/dL Urine Glucose (UA) Negative (Negative) mg/dL Urine Ketones 80 or greater H (Negative) mg/dL Urine Occult Blood Small H (Negative) Urine Nitrate Positive H (Negative) Urine Bilirubin Negative (Negative) Urine Urobilinogen Less than 2 (Less than 2) mg/dL Ur Leukocyte Esterase Small H (Negative) Urine RBC 3 (0-3) /hpf Urine WBC 13 H (0-5) /hpf Ur Squamous Epith Cells 27 (0-5) /hpf Urine Bacteria Many H (None) /hpf Micro UA Comment Culture indicated Ur Microscopic Review Not Reportable Urine Culture Comments Culture indicated Imaging Data Radiologist's impression: Chest X-Ray 10/01/18 05:34 CONCLUSION: No acute cardiopulmonary disease identified. ECG Data Attestation: I personally reviewed and interpreted this ECG as follows: Interpretation: The patient had an EKG done on arrival. The patient's EKG reveals a sinus rhythm heart rate of 96, QRS duration 88 ms, QTC [address] segment elevation. T waves are inverted in V1. Discharge Plan Discharge Disposition Patient Disposition: ED Admit(ED Internal Use Only) Discharge Order Discharge Orders: ED Use Only Admit Order (Routine); Ordered 10/01/18 Ordered By: Milagro Castillo Discharge Details Diagnosis: Sepsis, UTI (urinary tract infection) Physicians Team ED Provider: Hird,Milagro M Primary Care Provider: Primary Care Physici,No Rxs /Orders / Referrals /Forms Prescriptions: No Action No Known Home Medications RF: 0 Status ED Status: Admitted Observation Patient
--- NOTE | 2018-10-01 05:54 | XR ---
EXAM DATE: 10/01/2018 5:47 AM EST AGE/SEX: 47 years / Female INDICATIONS: Chest pain. CLINICAL DATA: This is the patient's initial encounter. Patient reports that signs and symptoms have been present for 1 day and indicates a pain score of 0/10. MEDICAL/SURGICAL HISTORY: None. . Right and left arm surgery COMPARISON: [facility] – [place], CHEST SINGLE AP, 01/01/2016. . FINDINGS: Single AP view the chest. The lungs are clear. Cardiomediastinal silhouette within normal limits. No evidence of pleural effusion or pneumothorax. CONCLUSION: No acute cardiopulmonary disease identified. Electronically signed by: Lux Fraire MD 10/01/2018 5:53 AM EST
[2018-10-01] MEDS ORDERED: Sod Chloride 0.9% Inj 1,000 ML IV.SIG ONE ×2 (05:56→06:48)
[2018-10-01 06:09] LABS: Baso % (Auto) 0.4 % (0.0-2.0); Eos % (Auto) 0.2 % (0.0-4.0); Hematocrit 40.1 % (35.0-46.0); Hemoglobin 13.6 gm/dL (11.6-15.3); Lymph # (Auto) 0.8 th/mm3 (1.0-4.8); Lymph % (Auto) 7.2 % (9.0-44.0); Mean Corpuscular HGB Conc 33.9 % (32.0-36.0); Mean Corpuscular Hemoglobin 33.7 pg (27.0-34.0); Mean Corpuscular Volume 99.2 fL (80.0-100.0); Mean Platelet Volume 6.7 fL (7.0-11.0); Mono # (Auto) 0.6 th/mm3 (0.0-0.9); Mono % (Auto) 5.4 % (0.0-8.0); Neut # (Auto) 9.7 th/mm3 (1.8-7.7); Neut % (Auto) 86.8 % (16.0-70.0); Platelet Count 287 th/mm3 (150-450); Red Blood Count 4.04 mil/mm3 (4.00-5.30); Red Cell Distribution Width 17.9 % (11.6-17.2); White Blood Count 11.2 th/mm3 (4.0-11.0)
[2018-10-01 06:38] LABS: Alkaline Phosphatase 56 U/L (45-117); Creatine Kinase 187 U/L (26-192); Total Protein 6.6 g/dL (6.4-8.2)
[2018-10-01 06:39] LABS: Alanine Aminotransferase 21 U/L (10-53); Albumin 3.4 g/dL (3.4-5.0); Anion Gap 15 meq/L (5-15); Aspartate Aminotransferase 41 U/L (15-37); Blood Urea Nitrogen 7 mg/dL (7-18); Calcium 8.1 mg/dL (8.5-10.1); Carbon Dioxide 20.2 meq/L (21.0-32.0); Chloride 105 meq/L (98-107); Glomerular Filtration Rate Greater Than 89 mL/min (>89); Glucose,Random 56 mg/dL (74-106); Potassium 3.5 meq/L (3.5-5.1); Sodium 140 meq/L (136-145)
[2018-10-01] MEDS ORDERED: Azithromycin Inj 500 MG in Sodium Chlor 0.9% Inj 250 ML IV.SIG ONE (06:49)
[2018-10-01 06:50] LABS: Creatine Kinase MB 9.3 ng/mL (0.5-3.6)
[2018-10-01 07:32] LABS: Bacteria,Urine Many /hpf; Bilirubin,Urine Negative (Negative); Clarity,Urine Cloudy (Clear); Color,Urine Yellow (Yellw/Straw); Glucose,Urine (UA) Negative (Negative); Leukocyte Esterase,Urine Small (Negative); Nitrite,Urine Positive (Negative); Squamous Epithelial Cell,Urine 27 /hpf (0-5)
[2018-10-01] MEDS ORDERED: Bisacodyl 10 MG Supp RECTAL PRN (08:07)
[2018-10-01] MEDS ORDERED: Acetaminophen 325 MG Tablet PO PRN (08:07)
[2018-10-01] MEDS ORDERED: Dextrose 50% in Water 50 ML Vial IV.PUSH PRN (08:12)
[2018-10-01] MEDS: Senna/Docusate Sodium 8.6/50 MG Tablet PO SCH ×2 (09:45→21:21)
[2018-10-01 10:53] LABS: Bacteria,Urine Many /hpf; Bilirubin,Urine Negative (Negative); Clarity,Urine Cloudy (Clear); Color,Urine Yellow (Yellw/Straw); Glucose,Urine (UA) Negative (Negative); Leukocyte Esterase,Urine Moderate (Negative); Nitrite,Urine Negative (Negative); Specific Gravity,Urine 1.017 (1.002-1.035); Squamous Epithelial Cell,Urine 57 /hpf (0-5)
[2018-10-01] MEDS ORDERED: Benzonatate 100 MG Capsule PO PRN (13:10)
--- NOTE | 2018-10-01 13:33 | P.HPIM ---
History of Present Illness Primary Care Physician: No Primary Care Physician Chief Complaint: respiratory sxs History of Present Illness: This is 47-year-old female smoker who presents to the emergency department because of respiratory symptoms for the past 2 weeks. This started with cold symptoms and developed productive cough with green phlegm associated with shortness of breath. States it difficult to breathe. Denies fever and chest pain but has chills. In the emergency department, she was found to be dehydrated and hypoglycemic and received fluid bolus and Zofran. She also has abnormal urinalysis suggestive of UTI and was then started on Rocephin. Lactic acid 3.6.. Patient also reports of 2 loose stools today nonbloody and nonmucoid no recent antibiotic use and history of C. difficile. All other systems reviewed negative Review of Systems Review of Systems: all other systems reviewed are negative [facility] Medical History Medical History No significant medical problems (Acute) Surgical History Surgical History History of surgery on arm (Acute) Family History Family History Other Diabetes mellitus Social History Social History Substance History: No History of Abuse and Past History Second Hand Smoke Exposure: No Smoking Status: Current every day smoker Tobacco Type: Cigarettes Packs Per Day: 0.5 Cigarettes Per Day: 10.0 How Often Do You Have a Drink Containing Alcohol: 4 or more times a week Recent Travel in [facility] [place] within the Last 8 Weeks: No Recent Out of Country Travel within the Last 8 Weeks: No Immunization History Tetanus Immunization: <5 Years Medications and Allergies Allergies Allergy/AdvReac Type Severity Reaction Status Date / Time No Known Allergies Allergy Mild Weakness Uncoded 10/01/18 05:28 Home Medications Medication Instructions Recorded Confirmed Type No Known Home Medications 10/01/18 10/01/18 History Active Medications: Active Medications Acetaminophen (Tylenol) 650 mg PO Q4H PRN PRN Reason: Temp > 100.4 Al Hydroxide/Mg Hydroxide (Milk Of Magnesia Liq) 30 ml PO Q12H PRN PRN Reason: Mild Constipation Benzonatate (Tessalon Perles) 200 mg PO Q8H PRN PRN Reason: COUGH Bisacodyl (Dulcolax Supp) 10 mg RECTAL DAILY PRN PRN Reason: SEVERE CONSITIPATION Dextrose (D50w Vial) 50 ml IV.PUSH UNSCH PRN PRN Reason: PER HYPOGLYCEMIA PROTOCOL Glucagon (Glucagon Inj) 1 mg OTHER PRN PRN PRN Reason: for Hypoglycemia Protocol Guaifenesin (Mucinex Er) 600 mg PO BID [facility] Ceftriaxone Sodium 1,000 mg/ (Sodium Chloride) 100 mls @ 200 mls/hr IV.SIG Q24H [facility] Lactated Ringer's (Lr 1000 Ml Inj) 1,000 mls @ 100 mls/hr IV.CONT .Q10H [facility] Last Admin: 10/01/18 10:15 Dose: 100 mls/hr Lactobacillus Acidophilus (Lactinex) 1 tab PO TID [facility] Lactulose (Lactulose Liq) 30 ml PO DAILY PRN PRN Reason: SEVERE CONSITIPATION Ondansetron HCl (Zofran Inj) 4 mg IV.PUSH Q6H PRN PRN Reason: NAUSEA OR VOMITING Last Admin: 10/01/18 10:53 Dose: 4 mg Senna/Docusate Sodium (Gemma-Colace) 1 tab PO BID [facility] Last Admin: 10/01/18 09:45 Dose: Not Given Sennosides (Senokot) 17.2 mg PO Q12H PRN PRN Reason: Moderate Constipation Sodium Chloride (Ns Flush) 2 ml IV.FLUSH BID [facility] Last Admin: 10/01/18 10:15 Dose: 2 ml Sodium Chloride (Ns Flush) 2 ml IV.FLUSH PRN PRN PRN Reason: FLUSH AFTER USING IV ACCESS Physical Exam Vital signs: Last Vital Signs Temp 98.3 F 10/01/18 12:00 Pulse 94 H 10/01/18 12:00 Resp 16 10/01/18 12:00 BP 160/91 H 10/01/18 12:00 Pulse Ox 97 10/01/18 12:00 Intake & Output 09/29/18 09/30/18 10/01/18 10/02/18 06:59 06:59 06:59 06:59 Intake Total 1000 / 1000 1590 / 1590 Balance 1000 / 1000 1590 / 1590 Narrative: GENERAL: Well-developed, well-nourished adult female who looks dehydrated SKIN: Warm and dry. HEAD: Atraumatic. Normocephalic. EYES: Pupils equal and round. No scleral icterus. No injection or drainage. ENT: No nasal bleeding or discharge. Dry oral mucosa NECK: Trachea midline. No JVD. CARDIOVASCULAR: Regular rate and rhythm. RESPIRATORY: No accessory muscle use. Clear to auscultation. Breath sounds equal bilaterally. GASTROINTESTINAL: Abdomen soft, non-tender, nondistended. MUSCULOSKELETAL: Extremities without clubbing, cyanosis, or edema. No obvious deformities. NEUROLOGICAL: Awake and alert. No obvious cranial nerve deficits. Motor grossly within normal limits. Five out of 5 muscle strength in the arms and legs. Normal speech. PSYCHIATRIC: Appropriate mood and affect; insight and judgment normal. Results Labs CBC & Chem 7: 10/01/18 05:53 10/01/18 05:53 Imaging Impressions Chest X-Ray 10/01/18 05:34 CONCLUSION: No acute cardiopulmonary disease identified. Caprini VTE Risk Assessment Caprini VTE Risk Assessment: No/Low Risk (score <= 1) Caprini Risk Assessment Model: Point Value = 1 Point Value = 2 Point Value = 3 Point Value = 5 Age 41-60 Minor surgery BMI > 25 kg/m2 Swollen legs Varicose veins or History of unexplained or recurrent spontaneous Oral contraceptives or hormone replacement Sepsis (< 1 month) Serious lung disease, including pneumonia (< 1 month) Abnormal pulmonary function Acute myocardial infarction Congestive heart failure (< 1 month) History of inflammatory bowel disease Medical patient at bed rest Age 61-74 Arthroscopic surgery Major open surgery (> 45 min) Laparoscopic surgery (> 45 min) Malignancy Confined to bed (> 72 hours) Immobilizing plaster cast Central venous access Age >= 75 History of VTE Family history of VTE Factor V Leiden Prothrombin [id number] Lupus anticoagulant Anticardiolipin antibodies Elevated serum homocysteine Heparin-induced thrombocytopenia Other congenital or acquired thrombophilia Stroke (< 1 month) Elective arthroplasty Hip, pelvis, or leg fracture Acute spinal cord injury (< 1 month) Prophylaxis Regimen: Total Risk Factor Score Risk Level Prophylaxis Regimen 0-1 Low Early ambulation 2 Moderate Order ONE of the following: *Sequential Compression Device (SCD) *Heparin 5000 units SQ BID 3-4 Higher Order ONE of the following medications: *Heparin 5000 units SQ TID *Enoxaparin/Lovenox 40 mg SQ daily (WT < 150 kg, CrCl > 30 mL/min) *Enoxaparin/Lovenox 30 mg SQ daily (WT < 150 kg, CrCl > 10-29 mL/min) *Enoxaparin/Lovenox 30 mg SQ BID (WT < 150 kg, CrCl > 30 mL/min) AND/OR *Sequential Compression Device (SCD) 5 or more Highest Order ONE of the following medications: *Heparin 5000 units SQ TID (Preferred with Epidurals) *Enoxaparin/Lovenox 40 mg SQ daily (WT < 150 kg, CrCl > 30 mL/min) *Enoxaparin/Lovenox 30 mg SQ daily (WT < 150 kg, CrCl > 10-29 mL/min) *Enoxaparin/Lovenox 30 mg SQ BID (WT < 150 kg, CrCl > 30 mL/min) AND *Sequential Compression Device (SCD) Assessment and Plan Plan This is 47-year-old female smoker who presents to the emergency department because of respiratory symptoms for the past 2 weeks. Chest x-ray independently reviewed with no acute cardiopulmonary disease. In the emergency department, she was found to be dehydrated and hypoglycemic and received fluid bolus and Zofran. She has abnormal urinalysis suggestive of UTI. Lactic acid 3.6 per she was then given Rocephin Urinary tract infection. Continue IV Rocephin and follow-up cultures Acute bronchitis. Tobacco cessation. Add Zithromax Suspect severe sepsis secondary to above. Dehydration and hypoglycemia secondary to above. Continue IV hydration monitor for hypoglycemia DVT prophylaxis with SCD and early ambulation Possible discharge in 1-2 days
[2018-10-01] MEDS: Lactobacillus Acidophilus/L. Spores Tablet PO SCH (17:53)
[2018-10-01] MEDS: guaiFENesin 600 MG ER Tablet PO SCH (21:21)
--- NOTE | 2018-10-01 21:49 | ECG ---
Date Performed: 10/01/2018 Time Performed: 05:32:52 PTAGE: 47 years EKG: Sinus rhythm POSSIBLE LEFT ATRIAL ENLARGEMENT POSSIBLE RIGHT VENTRICULAR CONDUCTION DELAY BORDERLINE ECG PREVIOUS TRACING : 01/01/2016 21.20 Since the previous tracing, no significant change noted DOCTOR: Alfred Contreras Interpretating Date/Time 10/01/2018 21:47:41
--- NOTE | 2018-10-02 09:15 | P.PN ---
Subjective Interval history: Follow-up for bronchitis, UTI. Patient reports feeling slightly better, however still very weak and not ready for discharge. She reports continued intractable cough with yellowgreen phlegm. Denies fever, but does report chills and sweats. She denies any chest pain. She does endorse some shortness of breath, mostly with intractable coughing. She also reports an irritated throat secondary to the intractable cough. She has no other medical complaints at this time. The patient is homeless. Physical Exam Vital signs: Vital Signs 10/01/18 12:00 10/01/18 19:47 10/01/18 20:00 Temperature 98.3 F 97.9 F Pulse Rate 94 H 110 H Respiratory Rate 16 16 Blood Pressure 160/91 H 143/74 H Pulse Oximetry 97 98 97 10/01/18 23:05 10/01/18 23:36 10/02/18 04:00 Temperature 97.9 F 98.4 F Pulse Rate 93 H 99 H Respiratory Rate 20 17 Blood Pressure 163/82 H 136/70 Pulse Oximetry 95 96 97 10/02/18 08:00 Temperature 98.6 F Pulse Rate 89 Respiratory Rate 16 Blood Pressure 147/83 H Pulse Oximetry 96 Intake & Output 10/01/18 10/02/18 10/02/18 18:59 06:59 18:59 Intake Total 2590 / 2590 1000 / 1000 Balance 2590 / 2590 1000 / 1000 Intake: IV 2350 / 2350 1000 / 1000 LR 1000 mL Inj 1,000 ML @ 100 1000 / 1000 1000 / 1000 mls/hr IV.CONT .Q10H [facility] Rx#: [id number] Azithromycin Inj 500 MG In NS 250 / 250 Inj 250 ML @ 250 mls/hr IV.SIG ONCE ONE Rx#:[id number] NS Inj 1,000 ML @ Wide Open IV. 1000 / 1000 SIG BOLUS ONE Rx#:[id number] Rocephin Inj 1,000 MG In NS Inj 100 / 100 100 ML @ 200 mls/hr IV.SIG ONCE ONE Rx#:[id number] Oral 240 / 240 Narrative: GENERAL: Well-nourished, well-developed middle-aged female patient in [facility]. SKIN: Warm and dry. No rash. HEENT: Normocephalic. Atraumatic. Pupils equal and round. Mucous membranes slightly dry. CARDIOVASCULAR: Regular rate and rhythm. No murmur appreciated. RESPIRATORY: No accessory muscle use. Upper airway congestion noted with faint rales. Breath sounds equal bilaterally. GASTROINTESTINAL: Abdomen soft, non-tender, nondistended. Normoactive bowel sounds x4. MUSCULOSKELETAL: No obvious deformities. Extremities without clubbing, cyanosis , or edema. NEUROLOGICAL: Awake and alert. No obvious cranial nerve deficits. Moving all extremities spontaneously. Normal speech. PSYCHIATRIC: Appropriate mood and affect; insight and judgment normal. Results - Labs CBC & Chem 7: 10/01/18 05:53 10/01/18 05:53 Laboratory Results - last 24 hr 10/01/18 10/01/18 10/01/18 10:10 10:20 12:54 POC Glucose 124 H Lactic Acid 0.9 Urine Color Yellow Urine Clarity Cloudy H Urine pH 5.0 Ur Specific [place] 1.017 Urine Protein 30 H Urine Glucose (UA) Negative Urine Ketones 20 Urine Occult Blood Negative Urine Nitrate Negative Urine Bilirubin Negative Urine Urobilinogen Less than 2 Ur Leukocyte Esterase Moderate H Urine RBC 6 H Urine WBC 39 H Ur Squamous Epith Cells 57 Urine Bacteria Many H Micro UA Comment Culture indicated Ur Microscopic Review Not Reportable Urine Culture Comments Culture indicated Stl C.difficile DNA Amp St C. diff Tox Epid 027 10/01/18 10/01/18 18:56 19:27 POC Glucose 86 Lactic Acid Urine Color Urine Clarity Urine pH Ur Specific [place] Urine Protein Urine Glucose (UA) Urine Ketones Urine Occult Blood Urine Nitrate Urine Bilirubin Urine Urobilinogen Ur Leukocyte Esterase Urine RBC Urine WBC Ur Squamous Epith Cells Urine Bacteria Micro UA Comment Ur Microscopic Review Urine Culture Comments Stl C.difficile DNA Amp Negative St C. diff Tox Epid 027 Negative - Imaging Chest X-Ray 10/01/18 05:34 CONCLUSION: No acute cardiopulmonary disease identified. Assessment and Plan - Plan 47-year-old homeless female with history of tobacco use presents with cough, shortness of breath times 2 weeks. Acute bronchitis, Severe Sepsis: Possibly early pneumonia with non-radiographic evidence. Meets sepsis with tachypnea, tachycardia, leukocytosis, source- bronchitis vs pneumonia vs UTI. Lactic acid 3.6 -CXR reviewed, no acute findings -Albuterol nebs prn -Give antibiotics with IV Rocephin/Azithro -Give IVF hydration -Check for influenza -Check sputum culture -O2 as needed -Mucinex bid, Tessalon Perles tid -Monitor for improvement UTI: UA +nitrates, leuks, WBCs -continue on IV rocephin as above -follow urine culture, adjust antibiotics as needed Tobacco Use: chronic -counseled on cessation DVT prophylaxis with SCD and early ambulation
[2018-10-02] MEDS: guaiFENesin 600 MG ER Tablet PO SCH ×2 (10:24→20:55)
[2018-10-02] MEDS: Lactobacillus Acidophilus/L. Spores Tablet PO SCH ×3 (10:25→17:52)
[2018-10-02] MEDS: Senna/Docusate Sodium 8.6/50 MG Tablet PO SCH ×2 (10:25→20:51)
[2018-10-02] MEDS: Benzonatate 100 MG Capsule PO SCH ×3 (10:25→17:52)
[2018-10-02] MEDS: Azithromycin Inj 500 MG in Sodium Chlor 0.9% Inj 250 ML IV.SIG SCH (13:04)
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
[2018-10-03] MEDS: guaiFENesin 600 MG ER Tablet PO SCH ×2 (08:55→20:35)
[2018-10-03] MEDS: Lactobacillus Acidophilus/L. Spores Tablet PO SCH ×3 (08:55→17:40)
[2018-10-03] MEDS: Senna/Docusate Sodium 8.6/50 MG Tablet PO SCH ×2 (08:55→20:11)
[2018-10-03] MEDS: Benzonatate 100 MG Capsule PO SCH ×3 (08:56→17:40)
[2018-10-03] MEDS: Azithromycin Inj 500 MG in Sodium Chlor 0.9% Inj 250 ML IV.SIG SCH (12:30)
[2018-10-04 05:15] VITALS: O2SAT 98
[2018-10-04] MEDS: guaiFENesin 600 MG ER Tablet PO SCH (09:47)
[2018-10-04] MEDS: Azithromycin Inj 500 MG in Sodium Chlor 0.9% Inj 250 ML IV.SIG SCH (09:47)
[2018-10-04] MEDS: Benzonatate 100 MG Capsule PO SCH ×2 (09:47→13:15)
[2018-10-04] MEDS: Senna/Docusate Sodium 8.6/50 MG Tablet PO SCH (09:49)
[2018-10-04] MEDS: Lactobacillus Acidophilus/L. Spores Tablet PO SCH ×2 (09:49→13:15)
[2018-10-04 12:19] VITALS: BP 155/95; PULSE 93; TEMP 98.3
[2018-10-04 13:12] VITALS: RESP 20
--- NOTE | 2018-10-04 18:17 | P.DS ---
DS: Providers Date of admission: 10/01/18 08:05 Primary care physician: No Primary Care Physician Anticipated date of discharge: 10/04/18 Brief History from admission: This is 47-year-old female smoker who presents to the emergency department because of respiratory symptoms for the past 2 weeks. This started with cold symptoms and developed productive cough with green phlegm associated with shortness of breath. States it difficult to breathe. Denies fever and chest pain but has chills. In the emergency department, she was found to be dehydrated and hypoglycemic and received fluid bolus and Zofran. She also has abnormal urinalysis suggestive of UTI and was then started on Rocephin. Lactic acid 3.6.. Patient also reports of 2 loose stools today nonbloody and nonmucoid no recent antibiotic use and history of C. difficile. All other systems reviewed negative Patient update on day of discharge: Patient reported mild increased congestion in am. She declined using nasal spray. She stated that she used to use cocaine in the past and does not like putting anything up her nose. Patient stated she would much rather go home today as she can ride the bus. She states there is no bus service on Saturday. CM consulted for assistance with bus pas. DS: Diagnosis Discharge Diagnosis (1) Acute bronchitis: Status: Acute Diagnosis: Principal (2) Sepsis: Status: Acute Diagnosis: Principal (3) UTI (urinary tract infection): Status: Acute Diagnosis: Principal (4) Tobacco use: Status: Acute Diagnosis: Secondary DS: Summary Patient was admitted under the care of the hospitalist service. She was started on IV antibiotics for her urinary tract infection. Her chest x-ray was unremarkable. She received Azithro and Rocephin for her respiratory symptoms including purulent sputum. Her influenza screen was negative. Her sputum culture showed heavy growth normal respiratory namrata. She complained slightly increased nasal congestion on day of discharge. She did not wish to receive any nasal spray. She requested to be discharged home as the bus does not run on Saturday. Patient further requested antibiotic that was on the free list at [facility]. RX was provided for Javed to complete her treatment for urinary tract infection. Time Spent with Patient Total time spent providing and/or coordinating discharge services: Less than 30 minutes Status at Discharge Functional status at discharge: independent ambulation Quality: VTE Deep Vein Thrombosis/Pulmonary Embolism Present on Admission: No Exam Narrative Exam Narrative: GENERAL: no acute distress SKIN: warm and dry HEAD: normocephalic, atraumatic EYES: no scleral icterus. No injection or drainage. NECK: Supple, trachea midline. No JVD or lymphadenopathy. CARDIOVASCULAR: Regular rate and rhythm without murmurs, gallops, or rubs. RESPIRATORY: Breath sounds equal bilaterally. No accessory muscle use. GASTROINTESTINAL: Abdomen soft, non-tender, nondistended. MUSCULOSKELETAL: No cyanosis, or edema. Results Labs on day of discharge: Preliminary micro results at discharge 10/01/18 04:42 Aerobic Blood Culture - Preliminary Blood - Peripheral No growth in 3 days Anaerobic Blood Culture - Preliminary No growth in 3 days 10/01/18 05:53 Aerobic Blood Culture - Preliminary Blood - Peripheral No growth in 3 days Anaerobic Blood Culture - Preliminary No growth in 3 days Impressions ITS Impressions Chest X-Ray 10/01/18 05:34 CONCLUSION: No acute cardiopulmonary disease identified. Discharge Plan Discharge Disposition Patient Disposition: Discharge Home Discharge Condition Condition: Stable Discharge Order Discharge Orders: Discharge Order (Routine); Ordered 10/04/18 Ordered By: Wanda Melendez Discharge Details Anticipated Discharge Date: 10/04/18 Physicians Team ED Provider: Milagro Castillo Primary Care Provider: Primary Care Virginia Wheeler Attending Provider: Jesus Rivas Rxs /Orders / Referrals /Forms Prescriptions: New ciprofloxacin HCl [Cipro] 500 mg tablet 500 mg PO BID Qty: 6 RF: 0 No Action No Known Home Medications RF: 0 Referrals: [facility] [Outside] - See Instructions (Follow up within 1 week. ) [facility] Virginia Wheeler [Primary Care Provider] - See Instructions Discharge Instructions Patient Printed Instructions: Urinary Tract Infection in Women (DC) Post Discharge Care Plan Care Plan Goals: Discharge Care Plan Goals for Pneumonia You have been diagnosed with pneumonia. This is a serious lung infection. Most cases of pneumonia are caused by bacteria. Pneumonia most often occurs in older adults, young children, and people with chronic health problems. Directions to Meet your Goals: 1. Home care: * Take your medicine exactly as directed. Dont skip doses. Continue taking your antibiotics as until they are all gone, even if you start to feel better. This will prevent the pneumonia from coming back. * Drink at least 8 glasses of water daily, unless directed otherwise. This helps to loosen and thin secretions so that you can cough them up. * Use a cool-mist humidifier in your bedroom. Be sure to clean the humidifier daily. * Dont use medicines to suppress your cough unless your cough is dry, painful, or interferes with your sleep. Coughing up mucus is normal. You may use an expectorant if your doctor says its okay. * You can use warm compresses or a heating pad on the lowest setting to relieve chest discomfort. Use several times a day for 15-20 minutes at a time. To prevent injury to your skin, set the temperature to warm, not hot. Dont put the compress or pad directly on your skin. Make certain it has a cover or wrap it in a towel. This is to prevent skin ulloa. * Get plenty of rest until your fever, shortness of breath, and chest pain go away. * Plan to get a flu shot every year. The flu is a common cause of pneumonia. Getting a flu shot every year can help prevent both the flu and pneumonia. 2. Getting the pneumococcal vaccine: * Talk with your doctor about getting the pneumococcal vaccine. Pneumococcal pneumonia is caused by bacteria that spread from person to person. It can cause minor problems, such as ear infections. But it can also turn into life- threatening illnesses of the lungs (pneumonia), the covering of the brain and spinal cord (meningitis), and the blood (bacteremia). * Make sure to ask your doctor if you should have the vaccine. Children under 2 years of age, adults over age 65, people with certain health conditions, and smokers are at the highest risk of pneumococcal disease. This vaccine can help prevent pneumococcal disease in both adults and children. 3. Follow-up care: Do Not miss your follow-up appointment. Keep up with all your appointments and yearly check ups 4. When to call your doctor: Call your doctor immediately if you have any of the following: Fever of 100.4F (38C) or higher, or as directed by your healthcare provider Mucus from the lungs (sputum) thats yellow, green, bloody, or smells bad Vomiting Any symptoms that get worse 5. Call 911: Call 911 right away if you have any of the following: Chest pain Trouble breathing Blue lips or fingernails Status ED Status: Left Department Discharge Information Discharge Date/Time: 10/04/18 15:49
== END 2018-10-04 15:49 | disposition home or self-care (01) ==
LOC: NEPC 05:16 → NEDA 05:16 → NEPHCDU 12:15
PROVIDERS: ADMIT Internal Medicine; ATTEND Internal Medicine
DX: E86.0 Dehydration; R53.83 Other fatigue; N39.0 Urinary tract infection, site not specified; B96.20 Unspecified Escherichia coli [E. coli] as the cause of diseases classified elsewhere; R00.0 Tachycardia, unspecified; J20.9 Acute bronchitis, unspecified; Z59.0 Homelessness; F17.210 Nicotine dependence, cigarettes, uncomplicated; R68.83 Chills (without fever); R06.02 Shortness of breath